=== PATIENT | female | born 1970 | race Caucasian/White ===

== ENCOUNTER 2021-10-18 10:00 | Outpatient (RCR) | payer OTHER, SELFPAY ==
--- NOTE | 2021-10-17 12:37 | PC.NURSE ---
10/17/2021 Pt. began PHP today 10/17/2021,Pt. disclosed that she has been drinking alcohol everyday for the past 10 years.This radio script writer met with the team to discuss concerns regarding Pt's substance abuse and meeting level of care for PHP at this time. The team determined that Pt. does not meet level of care for PHP at this time, Pt's Psychiatrist was also consulted. This radio script writer contacted Pt. and discussed this with her,Pt.was receptive, this radio script writer informed Pt. that once she completes a recovery program,she can be referred to PHP. This radio script writer provided the names and phone numbers to Inpatient Recovery facilities.
--- NOTE | 2021-10-17 16:19 | PC.NURSE ---
I called and left a message for pt's therpaist, Harmony Gomez at [facility] in [place] ([phone]) informing her of pt's referral to detox.
--- NOTE | 2021-10-17 16:56 | PM.EVENT ---
Event Note Date of Service: 10/17/21 Event Note: This conventional mortgage underwriter contacted outpatient psychiatrist regarding Wellbutrin and client alcohol use. Provider stated that they are aware, and have been working with client. Client had reported no previous seizure activity.
== END 2021-10-21 07:22 | disposition home or self-care (01) ==
LOC: HO.PHPA 10:00
PROVIDERS: Visit Provider Psychiatry & Neurology Psychiatry
DX: F33.1 Major depressive disorder, recurrent, moderate (principal); F41.1 Generalized anxiety disorder
CPT/HCPCS: 90791; 90853

== ENCOUNTER 2022-01-24 09:00 | Outpatient (RCR) | payer OTHER, SELFPAY ==
[2021-12-10 13:17] VITALS: BMI 31.6
--- NOTE | 2021-12-10 13:50 | PC.ADMIT ---
Patient is a 50 year old female who started [facility] today d/t increased depression with passive SI, no plan or intent, and increased anxiety sxs. Patient initially came to [facility] in September however she was referred to treatment for ETOH detox as patient reported drinking ETOH daily for the past 10 years. Patient reports being admitted to [facility] and was discharged on 10/31/21. Patient reports she has not had a drink since discharge. Patient reports increased stress at work and is currently on a MARIO from work for the past 2 months. Patient struggling with continuing at her current place of employment and stated she has been out of work for the past 2 months. Patient feeling helpless and hopeless, has been isolating, and experiencing crying episodes as she does not know what to do. Patient is having difficulty functioning and making decisions. She reports low self esteem and does not know what she can do about her current situation. Patient also reports ruminating about her job worried about what others are thinking about her which is creating much anxiety and worry. She is ambivalent about telling her work that she does not want to come back. Patient does not think she is qualified to do other types of work. Patient is alert and oriented x4. Presents with depressed mood anxious affect tearful at times. Denied SI at present however was experiencing passive suicidal thoughts during the initial assessment. Patient gave verbal permission to email her a copy of her safety plan. Medications reconciled with patient and patient's pharmacy. Patient reports taking medications as prescribed. Patient reported that she has 15 sessions left of TMS and is attending sessions daily after groups at 3pm. Patient wanted me to call [facility] to make sure she can do the PHP and TMS at the same time as she did not want to get billed. I called [facility] and spoke to Monae and let her know of patient's concerns of receiving a bill for attending both treatments on the same day but different times and Monae stated it was no problem for patient to do both on the same days. Reference # [id number]. I reviewed the information with the patient as well.
--- NOTE | 2021-12-10 15:51 | HO.PS.ADMBH ---
HPI Date of Service: 12/10/21 Chief Complaint: Major Depressive Disorder, Anxiety HPI Narrative: Christie is a 50 y.o. cis female who carries a dx of Alcohol Use Disorder, MDD recurrent, and r/o BPD. She is a self referral for PHP and had initially presented for intake in 09/2021, however due to daily drinking, she was referred to IOP at the [facility] and was discharged on 11/01/2021. She re-presented for PHP on 12/09/2021 and is currently receiving TMS through her psychiatrist?s office, in her 5th week. I evaluated the pt this morning and upon interview she reports feeling ?tortured with anxiety.? She attributes this to her work environment (currently on leave), as she says there is a ?high tense vibe? at work and she feels people are talking about her behind her back about her not doing things right, does not feel her boss is approachable. Says she cant imagine going back, leave is up on 12/24/21. Pt has been working with her psychiatrist on med adjustments and is receiving TMS, however says she has ?never had a great response? to interventions and she doesnt feel like anything is working. Has hx of ECT. Reports when she does not have structure in her day from PHP/ TMS, she isolates at home and watches tv, as she feels ?scared to leave the house.? She will go to the grocery store but sx of agoraphobia are relatively new. Has not been attending AA as much recently due to not liking remote groups and says she hasnt ?immersed myself in recovery.? Pt is struggling with sleep despite taking seroquel, gets ?a couple hours? of sleep, wakes up at 3am and cannot fall back to sleep. Daytime energy is low. Says she is ?constantly ruminating over my work situation.? Has financial stress, is in debt. She has been showering and keeping up with hygiene. Has also applied for other jobs. States her last episode of depression was in 2013, which was precipitated by her mother passing away. Pt states she feels lonely, as she used to go to the bar once a week but no longer goes due to sobriety. Has urges to drink and has tried non-alcoholic beer. Sx of depression include avolition, hopelessness, and low self esteem, as she says she feels like ?such a fucking failure.? Pt denies SI/SIB/HI and says she feels safe. Denies issues with anger. Denies issues with concentration. No hx of psychotic sx. No hx of manic or hypomanic episodes endorsed.? Current medications: Wellbutrin XL 300mg QD, Zoloft 100mg QD, and Seroquel 300mg QHS and 25 mg QD PRN for anxiety (denies benefit for 25 mg helping with anxiety). Past Psychiatric History: Past meds: Clonidine, hydroxyzine (lack of benefit), lamictal, lithium, abilify, lexapro, geodon, celexa, effexor, prozac. -Pt?s psychiatrist is Dr. Edna Navarro. Has psychotherapy with Phylicia Spicer (tele therapy out of [place]). -Per chart, pt?s sx of depression started in college. Hx of IPLOC 2x, first time in her 20s, last in 2013 at [facility]. She has hx of ECT during her inpatient admission and was stepped down to PHP at [facility] in 2013. Medical Evaluation Reviewed: Yes -Pt has stitches from biopsy on R side of eye due to basal cell carcinoma. [facility] Medical History (Updated 12/18/21 @ 16:32 by Martina Hernandez) Basal cell carcinoma H/O hidradenitis suppurativa History of fracture of left ankle Family History: -Oldest sister suffered from Schizophrenia and overdosed 10 yrs ago. Father and maternal uncle were alcoholics (both ). Social History: -Lives alone in a condo she owns. Close with her sister (lives in [place] 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 -She attended [id number] and transferred to [employer], where she graduated. Substance History: -Nicotine: 1/2 ppd -Cannabis: onset in College, occasional use -Alcohol: onset College, 3-5 beers Daily, pt has been abstinent from alcohol since 10/17/2021, attending AA. Diagnostics Vital Signs (24Hr): BMI result Body Mass Index 31.6 Meds/Allergies Allergies Allergies Allergy/AdvReac Type Severity Reaction Status Date / Time No Known Allergies Allergy Mild NOT Verified 12/10/21 13:07 APPLICABLE Mental Status Exam Mental Status Exam Narrative: A&O. Telehealth. Well groomed, overweight. Good eye contact, attentive. No Tics or Tremors. No abnormal involuntary movements. Has psychomotor agitation, pacing. Pt is distressed, anxious, tearful but overall cooperative, engaged. Non-pressured speech, spontaneous with regular rate and rhythm, normal volume and prosody. No prolonged speech latency or dysarthria. Mood is ?anxious,? affect is anxious. Denies SI/SIB/HI upon inquiry. Denies A/VH or delusional thought content. Thoughts are coherent, organized. No known cognitive or memory impairment. Insight/ Judgment fair and adequate. Assessment & Plan Assessment & Plan (1) Alcohol use disorder, moderate, in early remission: Status: Acute Code(s): F10.21 - Alcohol dependence, in remission (2) MDD (major depressive disorder), recurrent severe, without psychosis: Status: Acute Code(s): F33.2 - Major depressive disorder, recurrent severe without psychotic features (3) HUMBERTO (generalized anxiety disorder): Status: Acute Code(s): F41.1 - Generalized anxiety disorder Assessment and Plan: Christie is a 50 y.o. cis female who carries a dx of Alcohol Use Disorder, MDD recurrent, and r/o BPD. She is a self referral for PHP and had initially presented for intake in 09/2021, however due to daily drinking, she was referred to IOP at the [facility] and was discharged on 11/01/2021. She re-presented for PHP on 12/09/2021 and is currently receiving TMS through her psychiatrist?s office, in her 5th week. She currently is presenting with sx of anxiety, isolative behaviors, poor sleep, low energy, poor self esteem, hopelessness, avolition and anhedonia, and feelings of hopelessness. Pt has hx of ECT and multiple failed med trials. Has OP psych services and psychiatrist is Dr. Durga Navarro. Plan: Pt reports she does not want med adjustments, as she feels frustrated with lack of benefit on medications and does not feel TMS has been helpful thus far. She attributes sx of depression and anxiety to situational stress of not liking her job, financial stress. She is open to re-trialing hydroxyzine as a comfort medication to use on a PRN basis for anxiety, agitation, and distress. Reviewed risks and benefits.?Would benefit from re-engaging in AA. Patient educated on: medication risk/benefits and therapeutic strategies Certification I certify that partial hospital treatment is medically necessary due to the symptoms and problems resulting from the patient's mental illness and the failure to treat the patient at the partial hospital level of care would likely result in the patient requiring inpatient psychiatric care which could not be prevented at a less intensive level of care.
--- NOTE | 2021-12-12 15:10 | PC.NURSE ---
Case opened in Treatment Team.
--- NOTE | 2021-12-18 16:12 | HO.PHPPROGNO ---
Subjective Subjective Date of Service: 12/18/21 Reason For Visit: Major Depressive Disorder, Anxiety Guardianship: No Medical Problems Affecting Mental Status: No Interim History: Client reports, ?I am not good, it's situational ?. Reports feeling that she has had no relief from anxiety and depressive symptoms while in program. Continues to peseverate on her work concerns. No thoughts of harm to self or others, no safety concern at this time. Medication Compliance: Yes Side effects from medications: No Attending Groups: Yes Review of Systems Acute medical concerns: No Medical Review of Systems: unchanged Review of Systems Review of Systems Yes all other systems are reviewed and are negative Constitutional: Reports no additional constitutional complaints Psychiatric: Reports anxiety Mental Status Exam Mental Status Exam Narrative: Well-developed, well-nourished female, in NAD. Extremely Anxious mood and affect, crying during encounter. Catastrophizing, regarding her current work situation. No evidence of any type of alcohol withdrawals or cravings observed/reported. Patient Appearance: Fatigued and Appropriate Patient Orientation: Person, Place, Time and Situation Level of Consciousness: Awake, Appropriate and Alert Patient Behavior: Appropriate, Cooperative, Anxious, Good Eye Contact and Crying Mood Description: Depressed and Anxious Affect Description: Depressed and Anxious Patient Cognition Impaired: No Ability to Follow Directions: Excellent Speech Pattern: Clear, Appropriate and Coherent Memory Description: Intact Hallucinations: None Delusions: Not Present Thought Process: Intact Thought Content: positive for Perseveration (Focused solely on current employment situation.) Depressive Symptoms: Increased Anxiety, Diff. Making Decisions, Difficulty Sleeping, Crying Spells, Loss of Int. in Activity, Hopelessness, Feelings of Guilt, Unhappiness, Increased Fatigue, Low Self Esteem, Loss of Energy and Difficulty Concentrating Judgement: Fair Diagnostics Vital Signs (24Hr): BMI result Body Mass Index 31.6 Assessment & Plan Assessment & Plan (1) HUMBERTO (generalized anxiety disorder): Status: Acute Code(s): F41.1 - Generalized anxiety disorder Assessment and Plan: Client continues with extremely anxious mood and affect. Perseverates on current job situation. Reports she feels TMS is not helping at all with her depression and anxiety. Denies any thought of harm to self or others at this time. Reports that she feels her situation is causing her symptoms, and that medication changes would not help at this time. She was tearful during encounter, and states that she does not believe she is capable of returning to her job. She is concerned regarding FMLA leave, and giving notice. She stated that she know she has catastrophizing, but cannot stop. She has had ECT in the past which has been successful. This was discussed, she states she does not feel ready to do this. She was encouraged to contact [facility] for a crisis eval if she feels her symptoms are becoming unbearable. She was in agreement to this. (2) MDD (major depressive disorder), recurrent severe, without psychosis: Status: Acute Code(s): F33.2 - Major depressive disorder, recurrent severe without psychotic features (3) Alcohol use disorder, moderate, in early remission: Status: Acute Code(s): F10.21 - Alcohol dependence, in remission Assessment and Plan: Client reports she does not fully believe she may have an alcohol use disorder, but that she completed treatment prior to coming here, due to wanting to come to this program, and it had been recommended. She states that she is not currently attending alcoholics anonymous or any other type of 12-step support group. It was explained that symptoms of anxiety and depression as well as panic are often common during early sobriety, and that she may benefit from attending either in person or virtual 12 step support meetings. It was suggested that she find a small Women's group, as there may be people that have had the same lived experience. She stated that she would think about it. Assessment and Plan: 1. Continue with current [facility] plan of care. 2. Continue with outpatient TMS. Client reports she has less than 10 visits left. 3. Consider crisis eval for inpatient level of care. 4. ECT recommended as possibility, as it has been successful in past for similar symptoms. 5. Continue to offer support and encourage recovery programs regarding alcohol use. 6. Follow-up as per protocol, sooner if needed. Patient educated on: diagnosis, medication risk/benefits, substance abuse, ECT and therapeutic strategies Informed Consent: understands Reason for contiued partial hosp. stay Substantial Risk for: harm to self, inability to function, rapid decompensation and med/psych decompensation Certification I certify that partial hospital treatment is medically necessary due to the symptoms and problems resulting from the patient's mental illness and the failure to treat the patient at the partial hospital level of care would likely result in the patient requiring inpatient psychiatric care which could not be prevented at a less intensive level of care. I spent minutes with the patient and/or on the patient floor today, greater than?50% of which was spent counseling/coordinating care. Discharge Plan Discharge Attending provider: Chester Caldera Medications: New hydroxyzine HCl 50 mg tablet 50 mg PO BID PRN (Reason: anxiety) Qty: 30 RF: 0 No Action sertraline [Zoloft] 100 mg Tablet 100 mg PO DAILY RF: 0 quetiapine [Seroquel] 100 mg Tablet 100 - 300 mg PO BEDTIME RF: 0 bupropion HCl [Wellbutrin XL] 150 mg Tablet Extended Release 24 Hr 300 mg PO QAM RF: 0 Telehealth Telehealth Location of provider rendering services: practice address Location of patient: address on file Patient Identification confirmed using: Name, : Yes Telehealth method: video Patient verbally consented to treatment: Yes Patient verbally consented to billing insurance company: Yes Patient informed of any privacy concerns related to visit: Yes Time spent with patient (mins): 20
--- NOTE | 2021-12-23 09:40 | PC.NURSE ---
I called the client to enquire about her absence .she stated that she called and left a message. She is not feeing well.
--- NOTE | 2021-12-24 11:58 | PC.NURSE ---
Spoke to patient about medication assisted treatment for ETOH cravings and to help support sobriety. Patient thinking about this however started she does not have cravings at this time and is staying sober however she may need it in the future. Patient given the number for the [facility].
--- NOTE | 2021-12-25 15:34 | P.PNPSP_ITS ---
Subjective Subjective Date of Service: 12/25/21 Reason For Visit: Major Depressive Disorder, Anxiety Guardianship: No Medical Problems Affecting Mental Status: No Interim History: Christie describes mood as ?you know, okay . Further elaborates by stating she is still very depressed. Reports that she feels her depression has worsened. States that she has had several passive fleeting thoughts of SI, with no intent or plan. Reports she feels safe. Reports she is almost done with TMS, and is not finding it helpful. Remains abstinent from alcohol. No 12-step groups in several weeks. Denies cravings. Medication Compliance: Yes Side effects from medications: No Attending Groups: Yes Review of Systems Acute medical concerns: No Medical Review of Systems: unchanged Review of Systems Review of Systems Yes all other systems are reviewed and are negative Constitutional: Reports no additional constitutional complaints Mental Status Exam Mental Status Exam Narrative: Well-developed, well-nourished female, in NAD. Anxious, Depressed mood and affect. No abnormal movements, no tics or tremors noted. Catastrophizing. Patient Appearance: Well Grooomed and Appropriate Patient Orientation: Person, Place, Time and Situation Level of Consciousness: Awake, Appropriate and Alert Patient Behavior: Appropriate, Cooperative and Good Eye Contact Mood Description: Depressed and Anxious Affect Description: Depressed and Anxious Patient Cognition Impaired: No Ability to Follow Directions: Excellent Speech Pattern: Clear, Appropriate and Coherent Memory Description: Intact Hallucinations: None Delusions: Not Present Thought Process: Intact Thought Content: positive for Obsessional Thoughts, positive for Perseveration and positive for Suicidal Ideation (Reports several fleeting passive SI, states minimal, denies any intent or plan.) Depressive Symptoms: Increased Anxiety, Diff. Making Decisions, Difficulty Sleeping, Crying Spells, Loss of Int. in Activity, Feelings of Worthlessness, Hopelessness, Feelings of Guilt, Unhappiness, Increased Fatigue, Thoughts of /Suicide (several passive, fleeting since last visit. denies today), Low Self Esteem, Loss of Energy and Difficulty Concentrating Judgement: Fair Diagnostics Vital Signs (24Hr): BMI result Verdana 4 Body Mass Index Verdana 4 31.6 Verdana 4 Verdana 4 Assessment & Plan Assessment & Plan (1) MDD (major depressive disorder), recurrent severe, without psychosis: Status: Acute Code(s): F33.2 - Major depressive disorder, recurrent severe without psychotic features Assessment and Plan: Patient reports symptoms of depression are worsening. Presents as hopeless, helpless. Reports several fleeting thoughts of passive SI since last encounte, no plan/intent. Denies any thoughts of self-harm today. States that she is in last week of TMS therapy, and that she has found it to be unhelpful. She reports she is not finding her medications helpful at all at this time either. She reports that she has been talking about ketamine treatment as an option with her outpatient provider. She also reports that she has had ECT in the past with positive affect, and has been considering this. She reports that she received it at this facility in 2013, and then 10 years prior to that date. She is concerned regarding transportation for treatment. She is also perseverating on her work situation, and that she may lose insurance when and if she leaves her job. (2) HUMBERTO (generalized anxiety disorder): Status: Acute Code(s): F41.1 - Generalized anxiety disorder (3) Alcohol use disorder, moderate, in early remission: Status: Acute Code(s): F10.21 - Alcohol dependence, in remission Assessment and Plan: Reports abstinent from alcohol. States has not attended any 12 step support or other type of support groups in past 2 weeks. Denies cravings of any alcohol. Discuss usefulness of support groups, patient was encouraged to attend meetings. Plan 1. Continue with current medications as prescribed by outpatient provider. 2. informed outpatient provider as well as psychiatrist here that she has been considering ECT treatments. 3 Continue with current [facility] plan of care. 4. Continue to support client's early sobriety and encourage her to attend support groups. 5. Follow-up as per protocol. Patient educated on: diagnosis, medication risk/benefits, substance abuse, ECT, TMS and therapeutic strategies Informed Consent: understands Reason for contiued partial hosp. stay Substantial Risk for: harm to self, inability to function, rapid decompensation and med/psych decompensation Certification I certify that partial hospital treatment is medically necessary due to the symptoms and problems resulting from the patient's mental illness and the failure to treat the patient at the partial hospital level of care would likely result in the patient requiring inpatient psychiatric care which could not be prevented at a less intensive level of care. I spent minutes with the patient and/or on the patient floor today, greater than?50% of which was spent counseling/coordinating care. Discharge Plan Discharge Attending provider: Chester Caldera Medications: New hydroxyzine HCl 50 mg tablet 50 mg PO BID PRN (Reason: anxiety) Qty: 30 0RF No Action sertraline [Zoloft] 100 mg Tablet 100 mg PO DAILY 0RF quetiapine [Seroquel] 100 mg Tablet 100 - 300 mg PO BEDTIME 0RF Rx Instructions: Take 1-3 tabs at bedtime. bupropion HCl [Wellbutrin XL] 150 mg Tablet Extended Release 24 Hr 300 mg PO QAM 0RF Rx Instructions: Take 2 tabs daily. Telehealth Telehealth Location of provider rendering services: practice address Location of patient: address on file Patient Identification confirmed using: Name, : Yes Telehealth method: video Patient verbally consented to treatment: Yes Patient verbally consented to billing insurance company: Yes Patient informed of any privacy concerns related to visit: Yes Time spent with patient (mins): 25
--- NOTE | 2022-01-02 15:00 | P.PNPSP_ITS ---
Subjective Subjective Date of Service: 01/02/22 Reason For Visit: Major Depressive Disorder, Anxiety Guardianship: No Medical Problems Affecting Mental Status: No Interim History: Reports that groups have helped calm me , but says underlying depression and anxiety still present. Denies any thoughts of harm to self or others, no safety concern. Expresses ambivalence regarding abstinence from alcohol and cannabis use. Considering esketamine treatment. Medication Compliance: Yes Side effects from medications: No Attending Groups: Yes Review of Systems Acute medical concerns: No Medical Review of Systems: unchanged Review of Systems Review of Systems Yes all other systems are reviewed and are negative Constitutional: Reports no additional constitutional complaints Mental Status Exam Mental Status Exam Narrative: Well-developed, well-nourished female, in NAD. Mood / affect continue depressed, less anxious. No tics/tremors. Patient Appearance: Well Grooomed and Appropriate Patient Orientation: Person, Place, Time and Situation Level of Consciousness: Awake, Appropriate and Alert Patient Behavior: Appropriate, Cooperative and Good Eye Contact Mood Description: Depressed and Anxious Affect Description: Depressed (appears somewhat improved) and Anxious (lessened but still present) Patient Cognition Impaired: No Ability to Follow Directions: Excellent Speech Pattern: Clear, Appropriate and Coherent Memory Description: Intact Hallucinations: None Delusions: Not Present Thought Process: Intact, Goal Oriented and Linear Thought Content: positive for Obsessional Thoughts, positive for Goal Oriented, positive for Linear and positive for Perseveration Depressive Symptoms: Increased Anxiety, Loss of Int. in Activity, Feelings of Worthlessness, Hopelessness, Feelings of Guilt (feelings of shame/guilt), Unhappiness, Low Self Esteem, Loss of Energy and Difficulty Concentrating Judgement: Fair Diagnostics Vital Signs (24Hr): BMI result Verd[place] 4 Body Mass Index Verdana 4 31.6 Verdana 4 Verdana 4 Assessment & Plan Assessment & Plan (1) Alcohol use disorder, moderate, in early remission: Status: Acute Code(s): F10.21 - Alcohol dependence, in remission Assessment and Plan: Client ambivalent regarding substance use cessation. Discussed 12 step groups, setting goals and finding other outlets for socialization. She is willing to continue developing other interests. (2) MDD (major depressive disorder), recurrent severe, without psychosis: Status: Acute Code(s): F33.2 - Major depressive disorder, recurrent severe without psychotic features Assessment and Plan: Continues with depressive symptoms, although does appear somewhat improved. No thoughts of harm to self or others, no safety concern at this time. Reports TMS is finishing, does not feel it has been helpful. Considering esket amine treatment. Discussed ECT as an option. Considering esketamine, ECT as treatment options. She reports that she would prefer to try esketamine first, and then if that does not help alleviate symptoms she will then consider ECT. (3) HUMBERTO (generalized anxiety disorder): Status: Acute Code(s): F41.1 - Generalized anxiety disorder Assessment and Plan: Reports feeling overall that groups have helped her to handle anxiety and healthier way. Does report though she continues with anxiety symptoms, although they have improved. Reports taking medications as prescribed. Would prefer to discuss any possible medication changes with her outpatient provider. Plan 1. Continue with current medications as prescribed by outpatient provider. 2. Continue with current [facility] plan of care. 3. Follow-up as per protocol. Patient educated on: diagnosis, medication risk/benefits, substance abuse, ECT and therapeutic strategies Informed Consent: understands Reason for contiued partial hosp. stay Substantial Risk for: inability to function and med/psych decompensation Certification I certify that partial hospital treatment is medically necessary due to the symptoms and problems resulting from the patient's mental illness and the failure to treat the patient at the partial hospital level of care would likely result in the patient requiring inpatient psychiatric care which could not be prevented at a less intensive level of care. I spent minutes with the patient and/or on the patient floor today, greater than?50% of which was spent counseling/coordinating care. Discharge Plan Discharge Attending provider: Chester Caldera Medications: New hydroxyzine HCl 50 mg tablet 50 mg PO BID PRN (Reason: anxiety) Qty: 30 0RF No Action sertraline [Zoloft] 100 mg Tablet 100 mg PO DAILY 0RF quetiapine [Seroquel] 100 mg Tablet 100 - 300 mg PO BEDTIME 0RF Rx Instructions: Take 1-3 tabs at bedtime. bupropion HCl [Wellbutrin XL] 150 mg Tablet Extended Release 24 Hr 300 mg PO QAM 0RF Rx Instructions: Take 2 tabs daily. Telehealth Telehealth Location of provider rendering services: practice address Location of patient: address on file Patient Identification confirmed using: Name, : Yes Telehealth method: video Patient verbally consented to treatment: Yes Patient verbally consented to billing insurance company: Yes Patient informed of any privacy concerns related to visit: Yes Time spent with patient (mins): 20
--- NOTE | 2022-01-10 11:16 | P.PNPSP_ITS ---
Subjective Subjective Date of Service: 01/10/22 Reason For Visit: Major Depressive Disorder, Anxiety Guardianship: No Medical Problems Affecting Mental Status: No Interim History: Filling reports mood as ?I am okay ?. She is anxious regarding starting this [place] as outpatient next week. No SI, no safety concern. Medication Compliance: Yes Side effects from medications: No Attending Groups: Yes Review of Systems Acute medical concerns: No Medical Review of Systems: unchanged Review of Systems Review of Systems Yes all other systems are reviewed and are negative Constitutional: Reports no additional constitutional complaints Mental Status Exam Mental Status Exam Narrative: Well-developed, well-nourished female, in NAD. Mood continues dysphoric although slightly improved, continues with anxiety. No tics/tremors. Patient Appearance: Well Grooomed and Appropriate Patient Orientation: Person, Place, Time and Situation Level of Consciousness: Awake, Appropriate and Alert Patient Behavior: Appropriate, Cooperative and Good Eye Contact Mood Description: Depressed and Anxious Affect Description: Depressed (continues to improve) and Anxious (continues to improve) Patient Cognition Impaired: No Ability to Follow Directions: Excellent Speech Pattern: Clear, Appropriate and Coherent Memory Description: Intact Hallucinations: None Delusions: Not Present Thought Process: Intact, Goal Oriented and Linear Thought Content: positive for Obsessional Thoughts, positive for Goal Oriented, positive for Linear and positive for Perseveration Depressive Symptoms: Increased Anxiety, Loss of Int. in Activity, Feelings of Worthlessness, Feelings of Guilt (feelings of shame/guilt, especially surrounding remaining on leave from work.), Unhappiness, Low Self Esteem and Loss of Energy Judgement: Fair Diagnostics Vital Signs (24Hr): BMI result Body Mass Index 31.6 Assessment & Plan Assessment & Plan (1) MDD (major depressive disorder), recurrent severe, without psychosis: Status: Acute Code(s): F33.2 - Major depressive disorder, recurrent severe without psychotic features Assessment and Plan: Continues with depressed, anxious mood and affect, although slowly improved. Concerned regarding upcoming ketamine treatments starting next week. Expressed anxiety regarding this. Overall feeling okay . Discussed benefits of ketamine verses ECT treatment. Education provided. (2) HUMBERTO (generalized anxiety disorder): Status: Acute Code(s): F41.1 - Generalized anxiety disorder (3) Alcohol use disorder, moderate, in early remission: Status: Acute Code(s): F10.21 - Alcohol dependence, in remission Assessment and Plan: Continues to remain abstinent from alcohol. Plans to attend online recovery meeting this evening. Plan 1. Continue with current [facility] plan of care. 2. Continue with current medication regimen as prescribed. 3. Follow-up as per protocol. Patient educated on: diagnosis, medication risk/benefits, substance abuse and therapeutic strategies Informed Consent: understands Reason for contiued partial hosp. stay Substantial Risk for: inability to function, med/psych decompensation and other (alcohol relapse) Certification I certify that partial hospital treatment is medically necessary due to the symptoms and problems resulting from the patient's mental illness and the kristin lure to treat the patient at the partial hospital level of care would likely result in the patient requiring inpatient psychiatric care which could not be prevented at a less intensive level of care. I spent minutes with the patient and/or on the patient floor today, greater than?50% of which was spent counseling/coordinating care. Discharge Plan Discharge Attending provider: Chester Caldera Medications: New hydroxyzine HCl 50 mg tablet 50 mg PO BID PRN (Reason: anxiety) Qty: 30 0RF No Action sertraline [Zoloft] 100 mg Tablet 100 mg PO DAILY 0RF quetiapine [Seroquel] 100 mg Tablet 100 - 300 mg PO BEDTIME 0RF Rx Instructions: Take 1-3 tabs at bedtime. bupropion HCl [Wellbutrin XL] 150 mg Tablet Extended Release 24 Hr 300 mg PO QAM 0RF Rx Instructions: Take 2 tabs daily. Telehealth Telehealth Location of provider rendering services: practice address Location of patient: address on file Patient Identification confirmed using: Name, : Yes Telehealth method: video Patient verbally consented to treatment: Yes Patient verbally consented to billing insurance company: Yes Patient informed of any privacy concerns related to visit: Yes Time spent with patient (mins): 15
--- NOTE | 2022-01-24 14:30 | PC.NURSE ---
I called and left message for patient to call me back x 2. Awaiting call back from patient to review patient discharged medications.
--- NOTE | 2022-01-24 15:38 | HO.PHPPROGNO ---
Subjective Subjective Date of Service: 01/24/22 Reason For Visit: Major Depressive Disorder, Anxiety Guardianship: No Medical Problems Affecting Mental Status: No Interim History: Christie reports she is feeling ?okay ?today. She states however that she is still anxious and depressed, although slowly improving. She is also concerned as this program has provided her daily structure. Reports tolerating ketamine well. Continues perseveration regarding employment, and medical leave. Maintaining abstinence from alcohol. Feels ready for discharge from [facility]. Medication Compliance: Yes Side effects from medications: No Attending Groups: Yes Review of Systems Acute medical concerns: No Medical Review of Systems: unchanged Review of Systems Review of Systems Yes all other systems are reviewed and are negative Constitutional: Reports no additional constitutional complaints Mental Status Exam Mental Status Exam Narrative: Well-developed, well-nourished female, in NAD. Mood continues dysphoric although continues to improve. Continues anxious, although improving. Patient Appearance: Well Grooomed and Appropriate Patient Orientation: Person, Place, Time and Situation Level of Consciousness: Awake, Appropriate and Alert Patient Behavior: Appropriate, Cooperative and Good Eye Contact Mood Description: Depressed (improving) and Anxious (improving) Affect Description: Appropriate, Depressed (continues to improve) and Anxious (continues to improve) Patient Cognition Impaired: No Ability to Follow Directions: Excellent Speech Pattern: Clear, Appropriate and Coherent Memory Description: Intact Hallucinations: None Delusions: Not Present Thought Process: Intact, Goal Oriented and Linear Thought Content: positive for Goal Oriented, positive for Linear and positive for Perseveration (regarding work situation) Depressive Symptoms: Increased Anxiety, Loss of Int. in Activity and Low Self Esteem Judgement: Good Diagnostics Vital Signs (24Hr): BMI result Body Mass Index 31.6 Assessment & Plan Assessment & Plan (1) Alcohol use disorder, moderate, in early remission: Status: Acute Code(s): F10.21 - Alcohol dependence, in remission Assessment and Plan: Continues to remain abstinent from alcohol. Not utilizing 12 step groups on a regular basis, although trying to. Denies any concerns regarding alcohol use at this time. (2) MDD (major depressive disorder), recurrent severe, without psychosis: Status: Acute Code(s): F33.2 - Major depressive disorder, recurrent severe without psychotic features Assessment and Plan: Reports a decrease in depressive symptoms, believes that esketamine is helping somewhat. States that she is feeling ?a little better, although not as quickly as I had hoped ?. Denies SI, denies any thought of harm to self or others, no safety concerns. (3) HUMBERTO (generalized anxiety disorder): Status: Acute Code(s): F41.1 - Generalized anxiety disorder Assessment and Plan: Reports symptoms of anxiety are still present but contine to improve. Plan 1. Client appears stable for discharge from [facility] at this time. 2. Client to follow-up with outpatient provider going forward. Patient educated on: diagnosis, medication risk/benefits, substance abuse and therapeutic strategies Informed Consent: understands Reason for contiued partial hosp. stay Substantial Risk for: stable for discharge Certification I certify that partial hospital treatment is medically necessary due to the symptoms and problems resulting from the patient's mental illness and the failure to treat the patient at the partial hospital level of care would likely result in the patient requiring inpatient psychiatric care which could not be prevented at a less intensive level of care. I spent ____30__ minutes with the patient and/or on the patient floor today, greater than?50% of which was spent counseling/coordinating care. Discharge Plan Discharge Attending provider: Chester Caldera Medications: New hydroxyzine HCl 50 mg tablet 50 mg PO BID PRN (Reason: anxiety) Qty: 30 0RF No Action sertraline [Zoloft] 100 mg Tablet 100 mg PO DAILY 0RF quetiapine [Seroquel] 100 mg Tablet 100 - 300 mg PO BEDTIME 0RF Rx Instructions: Take 1-3 tabs at bedtime. bupropion HCl [Wellbutrin XL] 150 mg Tablet Extended Release 24 Hr 300 mg PO QAM 0RF Rx Instructions: Take 2 tabs daily. Stand Alone Forms: Patient Portal Discharge page Telehealth Telehealth Location of provider rendering services: practice address Location of patient: address on file Patient Identification confirmed using: Name, : Yes Telehealth method: video Patient verbally consented to treatment: Yes Patient verbally consented to billing insurance company: Yes Patient informed of any privacy concerns related to visit: Yes Time spent with patient (mins): 20
== END 2022-01-24 23:59 | disposition home or self-care (01) ==
LOC: HO.PHPA 09:00
PROVIDERS: Visit Provider Psychiatry & Neurology Psychiatry
DX: F33.2 Major depressive disorder, recurrent severe without psychotic features (principal); F41.1 Generalized anxiety disorder; F10.21 Alcohol dependence, in remission; Z79.899 Other long term (current) drug therapy
CPT/HCPCS: 90791; 90853

== ENCOUNTER 2022-02-18 15:36 | Inpatient (IN) | payer OTHER, MEDICAID, SELFPAY ==
--- NOTE | ~2022-02-18 | XR_ITS ---
EXAMINATION: XR CHEST CLINICAL INFORMATION: Leukocytosis COMPARISON: None TECHNIQUE: Frontal view of the chest was obtained. 10:11 PM FINDINGS: No significant abnormality is noted involving the heart, lungs, mediastinum, bony thorax or soft tissues. XR/XR chest 1V IMPRESSION: Unremarkable examination.
[2022-02-18 16:42] VITALS: BP 116/70; PULSE 100; RESP 18; TEMP 36.7; O2SAT 96; BMI 32.4
--- NOTE | 2022-02-18 18:05 | ED.PSYCH ---
HPI - Psych General Chief Complaint: Psychiatric Symptoms Stated Complaint: ref by doc SI Time Seen by Provider: 02/18/22 18:05 Source: patient Mode of arrival: ambulatory Limitations: no limitations History of Present Illness HPI Narrative: Patient history of depression had ECT in the past which worked on different medications for depression still feeling very depressed sent by Dr. Calixto patient's psychiatrist for inpatient admission for possible ECT treatment patient having increasing depression with difficulty in coping denies any suicidal ideation and homicidal feeling lying on the cot 4 hours not doing much at home tearful but does not know what causing the increased depression no hallucination no delusion Related Data Home Medications Medication Instructions Recorded Confirmed bupropion HCl 150 mg 24 hr tablet, 300 mg PO QAM 02/18/22 02/18/22 extended release quetiapine 100 mg tablet 1 - 3 tab PO BEDTIME PRN 02/18/22 02/18/22 sertraline 100 mg tablet 100 mg PO QAM 02/18/22 02/18/22 Allergies Allergy/AdvReac Type Severity Reaction Status Date / Time No Known Allergies Allergy Mild NOT Verified 12/10/21 13:07 APPLICABLE Review of Systems Review of Systems: Yes all other systems are reviewed and are negative [facility] Past Medical History Medical History Basal cell carcinoma H/O hidradenitis suppurativa History of fracture of left ankle Social History Social History Household Members: None Household Members Other:: N/A Patient Tobacco Use Status: Current everyday Tobacco user Tobacco use type: Cigarette Cigarettes Per Day: 10 Advance Directives: No Advance Directives Information Provided: No Guardian: No Physical Exam Vital Signs: Vital Signs: Last Vital Signs Temp 97.8 F 02/18/22 18:57 Pulse 100 02/18/22 18:57 Resp 16 02/18/22 18:57 BP 129/64 02/18/22 18:57 Pulse Ox 99 02/18/22 18:57 BMI result Body Mass Index 32.4 Appearance: Alert. Oriented X3. No acute distress. Eyes: PERRLA, No Nystagmus ENT: Pharynx normal. Oral Mucosa moist Neck: Normal inspection. Neck supple. CVS: Normal heart rate and rhythm. Pulses normal. Respiratory: No respiratory distress. Equal air entry bilateral, no wheezing/rales/rhonchi Abdomen: Soft and nontender. Bowel sounds are present, no mass palpable, no CVA tenderness Skin: Skin warm and dry. Normal skin color. Normal skin turgor. Extremities: No lower extremity edema. No calf tenderness Psych: Depressed mood no hallucination delusion fair judgment fair thought process Neuro: Oriented X 3. No motor deficit. No sensory deficit.No cerebellar signs , cranial nerves II-XII intact MDM - Psych MDM Narrative Medical decision making narrative: Patient with depression seen by therapist will admit for inpatient possible ECT treatment. Lab workup showed leukocytosis etiology not very clear chest x-ray negative no source of infection patient is not febrile possible leukemoid reaction. Patient has such medically cleared for inpatient psych admission Lab Data Attestation: I reviewed the patient's lab results. Result diagrams: 02/18/22 18:23 02/18/22 18:23 Labs: Lab Results 02/18/22 02/18/22 02/18/22 Range/Units 18:23 18:23 18:23 WBC 19.1 H (4.8-10.8) X10*3/uL RBC 4.54 (4.20-5.50) X10*6/uL Hgb 13.3 (12.0-16.0) g/dl Hct 43.8 (37.0-47.0) % MCV 96.5 (80.0-98.0) fL MCH 29.3 (27.0-33.0) pg MCHC 30.4 L (31.0-35.0) g/dl RDW 12.8 (11.0-16.0) % Plt Count 385 (160-400) X10*3/uL MPV 9.5 (9.4-12.3) fL Immature Gran % (Auto) 0.8 H (0.0-0.4) % Neut % (Auto) 71.9 (45-73) % Lymph % (Auto) 18.2 L (20-40) % Howard % (Auto) 6.2 (2-11) % Eos % (Auto) 2.4 (0-4) % Baso % (Auto) 0.5 (0-2) % Lymph # (Auto) 3.5 (1.2-4.9) X10*3/uL Howard # (Auto) 1.2 (0.1-1.2) X10*3/uL Eos # (Auto) 0.5 H (0.0-0.4) X10*3/uL Baso # (Auto) 0.1 (0.0-0.2) X10*3/uL Abs Immat Gran (auto) 0.16 H (0.00-0.03) X10*3/uL Absolute Neuts (auto) 13.8 H (2.0-8.3) x10*3/uL Absolute Nucleated RBC 0.000 (0.0-0.012) X10*3/uL Nucleated RBC % (auto) 0.0 (0.0-0.2) /100WBC Sodium 137 (135-145) mmol/L Potassium 4.4 (3.3-5.1) mmol/L Chloride 104 (96-108) mmol/L Carbon Dioxide 20 L (22-29) mmol/L Anion Gap 17 (12-20) BUN 10 (9-16) mg/dL Creatinine 0.85 (0.5-1.4) mg/dL Estim Creat Clear Calc 87.0 Estimated GFR > 60 Random Glucose 102 (60-115) mg/dL Calcium 10.2 (8.4-10.2) mg/dL Magnesium 2.2 (1.6-2.6) mg/dL Total Bilirubin 0.4 (0.0-1.0) mg/dL AST 24 (5-31) U/L ALT 34 H (0-31) U/L Alkaline Phosphatase 82 (39-117) U/L Total Protein 7.4 (6.5-8.0) g/dL Albumin 4.3 (3.5-5.0) g/dL Urine Color Urine Appearance Urine pH (5.0-8.0) Ur Specific [place] (1.005-1.025) Urine Protein (NEG-TRACE) MG/DL Urine Glucose (UA) (NEG) MG/DL Urine Ketones (NEG) MG/DL Urine Blood (NEG) Urine Nitrite (NEG) Ur Leukocyte Esterase (NEG) Urine RBC (0) /HPF Urine WBC (0-4) /HPF Ur Squamous Epith Cells /LPF Urine Bacteria /LPF Urine Opiates Screen (Not Detect) Urine Fentanyl Screen (Not Detect) Ur Barbiturates Screen (Not Detect) Ur Phencyclidine Scrn (Not Detect) Ur Amphetamines Screen (Not Detect) U Benzodiazepines Scrn (Not Detect) Urine Cocaine Screen (Not Detect) U Marijuana (THC) Screen (Not Detect) Ethyl Alcohol < 10 mg/dL COVID-19 (LILIANA) (Negative) COVID-19 Clin Com 02/18/22 02/18/22 02/18/22 Range/Units 18:56 20:04 20:04 WBC (4.8-10.8) X10*3/uL RBC (4.20-5.50) X10*6/uL Hgb (12.0-16.0) g/dl Hct (37.0-47.0) % MCV (80.0-98.0) fL MCH (27.0-33.0) pg MCHC (31.0-35.0) g/dl RDW (11.0-16.0) % Plt Count (160-400) X10*3/uL MPV (9.4-12.3) fL Immature Gran % (Auto) (0.0-0.4) % Neut % (Auto) (45-73) % Lymph % (Auto) (20-40) % Howard % (Auto) (2-11) % Eos % (Auto) (0-4) % Baso % (Auto) (0-2) % Lymph # (Auto) (1.2-4.9) X10*3/uL Howard # (Auto) (0.1-1.2) X10*3/uL Eos # (Auto) (0.0-0.4) X10*3/uL Baso # (Auto) (0.0-0.2) X10*3/uL Abs Immat Gran (auto) (0.00-0.03) X10*3/uL Absolute Neuts (auto) (2.0-8.3) x10*3/uL Absolute Nucleated RBC (0.0-0.012) X10*3/uL Nucleated RBC % (auto) (0.0-0.2) /100WBC Sodium (135-145) mmol/L Potassium (3.3-5.1) mmol/L Chloride (96-108) mmol/L Carbon Dioxide (22-29) mmol/L Anion Gap (12-20) BUN (9-16) mg/dL Creatinine (0.5-1.4) mg/dL Estim Creat Clear Calc Estimated GFR Random Glucose (60-115) mg/dL Calcium (8.4-10.2) mg/dL Magnesium (1.6-2.6) mg/dL Total Bilirubin (0.0-1.0) mg/dL AST (5-31) U/L ALT (0-31) U/L Alkaline Phosphatase (39-117) U/L Total Protein (6.5-8.0) g/dL Albumin (3.5-5.0) g/dL Urine Color YELLOW Urine Appearance CLEAR Urine pH 5.5 (5.0-8.0) Ur Specific [place] 1.020 (1.005-1.025) Urine Protein NEG (NEG-TRACE) MG/DL Urine Glucose (UA) NEG (NEG) MG/DL Urine Ketones NEG (NEG) MG/DL Urine Blood 2+ H (NEG) Urine Nitrite NEG (NEG) Ur Leukocyte Esterase NEG (NEG) Urine RBC 10-14 H (0) /HPF Urine WBC 0 (0-4) /HPF Ur Squamous Epith Cells 2+ /LPF Urine Bacteria 3+ /LPF Urine Opiates Screen Not Detected (Not Detect) Urine Fentanyl Screen Not Detected (Not Detect) Ur Barbiturates Screen Not Detected (Not Detect) Ur Phencyclidine Scrn Not Detected (Not Detect) Ur Amphetamines Screen Not Detected (Not Detect) U Benzodiazepines Scrn Not Detected (Not Detect) Urine Cocaine Screen Not Detected (Not Detect) U Marijuana (THC) Screen Not Detected (Not Detect) Ethyl Alcohol mg/dL COVID-19 (LILIANA) Negative (Negative) COVID-19 Clin Com See Note Discharge Plan Discharge Clinical Impression: MDD (major depressive disorder), recurrent severe, without psychosis, Leukocytosis Patient Disposition: Admitted As Inpatient
[2022-02-18 18:27] LABS: MANUAL DIFF FLAG NO
[2022-02-18 18:41] LABS: Basophils Absolute Auto 0.1 X10*3/uL (0.0-0.2); Basophils Percent Auto 0.5 % (0-2); Eosinophils Absolute Auto 0.5 X10*3/uL (0.0-0.4); Eosinophils Percent Auto 2.4 % (0-4); Hematocrit 43.8 % (37.0-47.0); Hemoglobin 13.3 g/dl (12.0-16.0); Imm Gran Abs Auto 0.16 X10*3/uL (0.00-0.03); Imm Gran Pct Auto 0.8 % (0.0-0.4); Lymphocytes Absolute Auto 3.5 X10*3/uL (1.2-4.9); Lymphocytes Percent Auto 18.2 % (20-40); Mean Corpuscular HGB Conc 30.4 g/dl (31.0-35.0); Mean Corpuscular Hemoglobin 29.3 pg (27.0-33.0); Mean Corpuscular Volume 96.5 fL (80.0-98.0); Mean Platelet Volume 9.5 fL (9.4-12.3); Monocytes Absolute Auto 1.2 X10*3/uL (0.1-1.2); Monocytes Percent Auto 6.2 % (2-11); Neutrophils Absolute Auto 13.8 x10*3/uL (2.0-8.3); Neutrophils Percent Auto 71.9 % (45-73); Platelet Count 385 X10*3/uL (160-400); Red Blood Count 4.54 X10*6/uL (4.20-5.50); Red Cell Distribution Width 12.8 % (11.0-16.0); White Blood Count 19.1 X10*3/uL (4.8-10.8)
[2022-02-18 18:43] LABS: Ethanol < 10 mg/dL
[2022-02-18 18:46] LABS: Alanine Aminotransferase 34 U/L (0-31); Albumin Level 4.3 g/dL (3.5-5.0); Alkaline Phosphatase 82 U/L (39-117); Anion Gap 17 (12-20); Aspartate Amino Transferase 24 U/L (5-31); Bilirubin Total 0.4 mg/dL (0.0-1.0); Blood Urea Nitrogen 10 mg/dL (9-16); Calcium 10.2 mg/dL (8.4-10.2); Carbon Dioxide 20 mmol/L (22-29); Chloride 104 mmol/L (96-108); Estimated Glomerular Filt Rate > 60; Glucose Random 102 mg/dL (60-115); Magnesium 2.2 mg/dL (1.6-2.6); Potassium 4.4 mmol/L (3.3-5.1); Sodium 137 mmol/L (135-145); Total Protein 7.4 g/dL (6.5-8.0)
[2022-02-18 18:57] VITALS: BP 129/64; PULSE 100; RESP 16; TEMP 36.6; O2SAT 99
[2022-02-18 19:20] LABS: COVID-19 Test Negative (Negative); IDNOW Serial# 16C4AD1C
[2022-02-18] MEDS: LORazepam 1 MG TABLET PO (19:44)
[2022-02-18 20:13] LABS: Appearance Urine CLEAR; Color Urine YELLOW; Glucose Urine UA NEG (NEG); Leukocyte Esterase Urine NEG (NEG); Nitrite Urine NEG (NEG); PH 5.5 (5.0-8.0); UACC Culture Trigger NO; Urine Blood 2+ (NEG); Urine Ketones NEG (NEG); Urine Protein NEG (NEG-TRACE)
[2022-02-18 20:24] LABS: Bacteria Urine 3+ /LPF; Squamous Epithelial Cell Urine 2+ /LPF; WBC Urine 0 /HPF (0-4)
[2022-02-18 20:26] LABS: Amphetamine Screen Urine Not Detected (Not Detect); Barbiturates, Urine Not Detected (Not Detect); Benzodiazepines Screen Urine Not Detected (Not Detect); Cannabinoid Screen Urine Not Detected (Not Detect); Cocaine Screen Urine Not Detected (Not Detect); Fentanyl, urine Not Detected (Not Detect); Opiate Screen Urine Not Detected (Not Detect); Phencyclidine Screen Urine Not Detected (Not Detect)
--- NOTE | 2022-02-18 21:06 | PC.NURSE ---
Triage note stated that pt awaiting bed in [facility]. This RN called M5 as well as M[facility] and [facility]. None of the inpatient psych units are expecting this pt at this time. This RN then spoke to CARE team regarding pts plan of care. CARE team stated somebody would be by to evaluate pt to determine if she met criteria for inpatient psych admission and develop plan of care from there. Pt notified of plan and ok with this, has no questions or concerns at this time. Pt to be moved to Pod at this time.
--- NOTE | 2022-02-18 22:42 | HE.PHANOTE ---
RE Bupropion Per patient, they take 300mg once a day. Verified with Anatoliy. Claim history shows TDD 450mg, but patient is only taking 300mg Thanks Keenan
[2022-02-18] MEDS: QUEtiapine Fumarate 100 MG TABLET PO (23:05)
--- NOTE | 2022-02-19 | ECG_ITS ---
Test Reason : medical clearance Blood Pressure : / mmHG Vent. Rate : 074 BPM Atrial Rate : 074 BPM P-R Int : 130 ms QRS Dur : 078 ms QT Int : 378 ms P-R-T Axes : 000 143 142 degrees QTc Int : 419 ms Suspect limb lead reversal, interpretation assumes no reversal Normal sinus rhythm Low voltage QRS Lateral infarct , age undetermined Abnormal ECG When compared with ECG of 17-MAY-2010 17:55, Nonspecific T wave abnormality now evident in Inferior leads T wave inversion now evident in Lateral leads Referred By: Josephine Gonzales Electronically Signed By:VICTOR MANUEL ELAM MD
[2022-02-19 01:50] VITALS: BP 99/56; PULSE 83; RESP 16; TEMP 37.1; O2SAT 98
[2022-02-19 02:09] LABS: Lactic Acid 0.9 mmol/L (0.5-2.0)
--- NOTE | 2022-02-19 06:49 | PC.NURSE ---
Patient slept through the night, no distress observed/reported, behavior appropriate, medication compliant, disposition per care team is voluntary inpatient bed search, will continue to monitor.
--- NOTE | 2022-02-19 07:13 | PC.NURSE ---
patient appears to remain asleep at present respirations are vene and unlabored patient appears in no distress
[2022-02-19] MEDS: buPROPion HCl XL 300 MG TAB.ER.24H PO (10:13)
[2022-02-19] MEDS: Sertraline HCL 100 MG TABLET PO (10:13)
[2022-02-19 16:31] VITALS: BP 127/65; PULSE 88; RESP 20; TEMP 36.2; O2SAT 97
[2022-02-19] MEDS: QUEtiapine Fumarate 100 MG TABLET PO (20:22)
--- NOTE | 2022-02-19 21:41 | PC.ADMIT ---
51 y.o. female admitted from [facility] for psychiatric evaluation. Per crisis: Her outpatient psychiatrist recommended evaluation for admission inpatient for possible ECT. Pt has been functioning below baseline for about 4 months and hardly leaving her home, unable to care for self, with poor sleep and appetite, and intermittent suicidal thoughts. PT has a history of inpatient admissions to . On admission Pt A&O and reports 8/10 depression due to her situation. Pt tearful during interview. Pt reports I want to be functional and get a job . Pt reports that she has been on a short term disability and reports that it will be running out in February. 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 Pt expressed her concerns regarding ECT and reports that she does not want to have memory loss . Pt denies si,hi,avh at this time. PMHx Basal Cell Carcinoma, Hidradenitis Suppurativa, and L ankle fracture. Pt on 15 minute safety checks.
--- NOTE | 2022-02-20 | ECG_ITS ---
Test Reason : ECT Blood Pressure : / mmHG Vent. Rate : 086 BPM Atrial Rate : 086 BPM P-R Int : 134 ms QRS Dur : 086 ms QT Int : 344 ms P-R-T Axes : 060 061 046 degrees QTc Int : 411 ms Normal sinus rhythm Normal ECG When compared with ECG of 19-FEB-2022 08:58, QRS axis Shifted left T wave inversion no longer evident in Lateral leads Referred By: Mojgan Mena Electronically Signed By:VICTOR MANUEL ELAM MD
[2022-02-20 06:00] VITALS: BP 121/64; PULSE 99; RESP 18; TEMP 36.7; O2SAT 99
[2022-02-20 07:00] VITALS: BMI 32.5
[2022-02-20] MEDS: Sertraline HCL 100 MG TABLET PO (08:44)
[2022-02-20] MEDS: buPROPion HCl XL 300 MG TAB.ER.24H PO (08:44)
[2022-02-20 09:00] LABS: Cholesterol 242 mg/dL; HDL Cholesterol 53 mg/dL; LDL Cholesterol Calculated 159 mg/dl; Magnesium 2.3 mg/dL (1.6-2.6); Triglycerides 151 mg/dL
[2022-02-20 09:18] LABS: Estimated Average Glucose 105 mg/dL; Hemoglobin A1c % 5.3 %
[2022-02-20 09:21] LABS: Thyroid Stimulating Hormone 2.34 uIU/mL (0.32-4.0)
[2022-02-20 09:43] LABS: Folate 14.2 ng/mL (> or = 4.0); Vitamin B12 415 pg/mL (200-900)
[2022-02-20] MEDS: Nicotine Polacrilex 2 MG GUM BUCCAL (11:55)
[2022-02-20 13:41] LABS: MANUAL DIFF FLAG NO
[2022-02-20 13:47] LABS: Basophils Absolute Auto 0.1 X10*3/uL (0.0-0.2); Basophils Percent Auto 0.6 % (0-2); Eosinophils Absolute Auto 0.6 X10*3/uL (0.0-0.4); Eosinophils Percent Auto 3.5 % (0-4); Hematocrit 40.3 % (37.0-47.0); Imm Gran Pct Auto 0.6 % (0.0-0.4); Lymphocytes Absolute Auto 2.7 X10*3/uL (1.2-4.9); Lymphocytes Percent Auto 17.2 % (20-40); Mean Corpuscular HGB Conc 32.3 g/dl (31.0-35.0); Mean Corpuscular Hemoglobin 28.8 pg (27.0-33.0); Mean Corpuscular Volume 89.4 fL (80.0-98.0); Mean Platelet Volume 8.8 fL (9.4-12.3); Monocytes Percent Auto 6.1 % (2-11); Neutrophils Absolute Auto 11.5 x10*3/uL (2.0-8.3); Platelet Count 375 X10*3/uL (160-400); Red Blood Count 4.51 X10*6/uL (4.20-5.50); Red Cell Distribution Width 12.6 % (11.0-16.0); White Blood Count 15.9 X10*3/uL (4.8-10.8)
--- NOTE | 2022-02-20 16:16 | P.CONHOSP_ITS ---
History of Present Illness Data of Consult Service Date: 02/20/22 Requesting physician: Martina Hernandez Primary Care Provider: Unknown Physician HPI Reason for consult: preop clearance for ECT 51-year-old female patient with past medical history of depression admitted to for ECT treatment since patient on multiple anti depressed since with no relief in symptoms with worsening depression difficulty in coping has been tear fall at home and laying in couch, patient at present remains tearful crying in between conversation, denies chest pain, no palpitation denies urinary symptoms of cough sinus pressure earache or sore throat, denies nausea vomiting abdominal pain or diarrhea, patient has no urinary symptoms of frequency, no dysuria, denies recent bout of fever chills. Patient denies any head trauma, denies recent surgeries. Review of Systems Review of Systems: General no headache , no dizziness no fever chills. CVS no chest pain, no palpitation. Respiratory no cough, no sputum production, no respiratory distress. Gastrointestinal no nausea no vomiting, no abdominal pain Yes all other systems are reviewed and are negative [facility] Medical History Basal cell carcinoma H/O hidradenitis suppurativa History of fracture of left ankle Social History Household Members: None Household Members Other:: N/A Housing: Condominium Do you presently have visiting nurse or other home services: No Unable to assess alcohol history related to: Unable to respond Patient Tobacco Use Status: Current everyday Tobacco user Tobacco use type: Cigarette Cigarette Packs Per Day: 0.25 Cigarettes Per Day: 5.0 Smoked in Last 30 Days: Yes e-Cigarette/Vaping Use: Currently Using Patient Interested in Nicotine Replacement: Yes Patient Given Instructions on How to Stop Smoking: No Use of substances other than those prescribed or required for medical reasons: Yes Substance Use Type: Marijuana and Caffiene Substance Use Frequency: Occasionally Last Used Substance Other:: July 2021 Currently Displaying Signs/Symptoms of Drug Intoxication Withdrawal: No Any prior treatment program specific to substance use: Yes ([facility]) Have you been hit, kicked, punched, or otherwise hurt by someone within the past year? If so, by whom?: No Do you feel safe in your current relationship?: No Is there a partner from a previous relationship who is making you feel unsafe now?: No Are you made to feel afraid or neglected: No Advance Directives: No Advance Directives Information Provided: No Guardian: No Do you have thoughts of harming others: None Do you have a plan to hurt others: No Plan Recently lost weight without trying: No Nutrition Risks: No Nutritional Risk Patient : No : No Poor oral hygiene: No service: No Sexual orientation: Straight/Heterosexual Meds Allergies Allergy/AdvReac Type Severity Reaction Status Date / Time No Known Allergies Allergy Mild NOT Verified 12/10/21 13:07 APPLICABLE Active Medications: Current Medications Acetaminophen (Acetaminophen 325 Mg Tablet) 650 mg PO Q6H PRN PRN Reason: Headache/Pain Mild Scale (1-3) Al Hydroxide/Mg Hydroxide (Magnesium Hydrox/Alum Hydrox 30 Ml Oral.Susp) 30 ml PO Q6H PRN PRN Reason: Heartburn/Nausea Bupropion HCl (Bupropion Hcl Xl 300 Mg Tab.Er.24h) 300 mg PO DAILY [facility] Last Admin: 02/20/22 08:44 Dose: 300 mg Documented by: Hydroxyzine HCl (Hydroxyzine Hcl 25 Mg Tablet) 25 mg PO BEDTIME PRN PRN Reason: Anxiety Magnesium Hydroxide (Milk Of Magnesia 30 Ml Oral.Susp) 30 ml PO DAILY PRN PRN Reason: Constipation Nicotine Polacrilex (Nicotine Polacrilex 2 Mg Gum) 2 mg BUCCAL Q2H PRN PRN Reason: Nicotine Cravings Last Admin: 02/20/22 11:55 Dose: 2 mg Documented by: Quetiapine Fumarate (Quetiapine Fumarate 100 Mg Tablet) 100 - 300 mg PO BEDTIME PRN PRN Reason: insomnia Last Admin: 02/19/22 20:22 Dose: 200 mg Documented by: Sertraline HCl (Sertraline Hcl 100 Mg Tablet) 100 mg PO DAILY [facility] Last Admin: 02/20/22 08:44 Dose: 100 mg Documented by: Trazodone HCl (Trazodone Hcl 50 Mg Tablet) 50 mg PO BEDTIME PRN PRN Reason: Insomnia Home Medications Medication Instructions Recorded Confirmed Last Taken Type bupropion HCl 150 mg 24 hr tablet, 300 mg PO QAM 02/18/22 02/18/22 Unknown History extended release quetiapine 100 mg tablet 1 - 3 tab PO BEDTIME PRN 02/18/22 02/18/22 Unknown History sertraline 100 mg tablet 100 mg PO QAM 02/18/22 02/18/22 Unknown History Physical Exam Vital Signs and Narrative: Vital Signs: Last Vital Signs Temp 98.1 F 02/20/22 06:00 Pulse 99 02/20/22 06:00 Resp 18 02/20/22 06:00 BP 121/64 02/20/22 06:00 Pulse Ox 99 02/20/22 06:00 BMI result Body Mass Index 32.5 Const: Other: General awake alert, tearful,in no acute distress. HEENT pupils equal round reactive to light and accommodation Neck supple no JVD. CVS regular rate rhythm, Respiratory lungs clear to auscultation, no respiratory distress, no wheeze, no rhonchi. Gastrointestinal abdomen soft, nontender, bowel sounds audible, no guarding , no rigidity. Extremities no edema. Neuro nonfocal Skin no rash, dry scab anterior abdominal wall no redness, no tenderness. Musculoskeletal no deformity Results Labs CBC and Chem 7: 02/20/22 13:34 02/18/22 18:23 Labs: Laboratory Results - last 24 hr 02/20/22 02/20/22 02/20/22 08:01 08:01 08:01 MCV MCH MCHC RDW Plt Count MPV Immature Gran % (Auto) Neut % (Auto) Lymph % (Auto) [place] % (Auto) Eos % (Auto) Baso % (Auto) Lymph # (Auto) [place] # (Auto) Eos # (Auto) Baso # (Auto) Abs Immat Gran (auto) Absolute Neuts (auto) Absolute Nucleated RBC Nucleated RBC % (auto) Estimat Average Glucose 105 Hemoglobin A1c % 5.3 Magnesium 2.3 Triglycerides 151 Cholesterol 242 LDL Cholesterol, Calc 159 HDL Cholesterol 53 Vitamin B12 415 Folate 14.2 TSH 2.34 Free T4 0.90 02/20/22 13:34 MCV 89.4 D MCH 28.8 MCHC 32.3 RDW 12.6 Plt Count 375 MPV 8.8 L Immature Gran % (Auto) 0.6 H Neut % (Auto) 72.0 Lymph % (Auto) 17.2 L [place] % (Auto) 6.1 Eos % (Auto) 3.5 Baso % (Auto) 0.6 Lymph # (Auto) 2.7 [place] # (Auto) 1.0 Eos # (Auto) 0.6 H Baso # (Auto) 0.1 Abs Immat Gran (auto) 0.10 H Absolute Neuts (auto) 11.5 H Absolute Nucleated RBC 0.000 Nucleated RBC % (auto) 0.0 Estimat Average Glucose Hemoglobin A1c % Magnesium Triglycerides Cholesterol LDL Cholesterol, Calc HDL Cholesterol Vitamin B12 Folate TSH Free T4 Assessment and Plan (1) Leukocytosis: Status: Acute (2) MDD (major depressive disorder), recurrent severe, without psychosis: Status: Acute (3) Pre-op evaluation: Status: Acute Plan 51-year-old female admitted for worsening depression failed antidepressant is admitted for ECT. Preop for ECT clearance patient noted to have leukocytosis, repeat CBC showed WBC trending down, no evidence of acute infection, with normal chest x-ray, urinalysis and normal skin examination, leukocytosis likely reactive, also noted to have abnormal EKG with T-wave inversion in lateral leads, patient has no chest pain, no palpitations therefore repeat EKG was obtained that is unremarkable, rest of electrolytes renal function is within normal range, patient can undergo ECT without further testing .
--- NOTE | 2022-02-20 17:44 | HO.PSYADMNOT ---
Documented by User: Linda Ayala APRN 02/20/22 18:09 HPI Date of Service: 02/20/22 Chief Complaint: ref by doc SI Sources of Information: patient interviewed, chart reviewed and crisis/core team assessment reviewed HPI Subjective Notes: Moy Warning and Conditional Voluntary Healthcare Proxy: No Guardianship: No Medical Problems Affecting Mental Status: No Narrative: 51 yo female, long history of recurrent major depression with treatment resistance-several trials, hx of TMS, hx of ECT with efficacy, presents for consideration for ECT course. Met with pt who is tearful- I have tried everything else . I don't want to be here. Pt reports current episode of illness has been problematic for ~6 months. 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 Symptoms became severe mid September when she lost functioning and began using alcohol to assist with sleep. Reports she requested partial hospital but was rejected due to her alcohol use. She was treated at [facility] in Sep 2021. Since that time she had a beer on 11/22/21 and two Guinness beers 02/13/22. Reports she has been taking Wellbutrin, Sertraline, Seroquel without SE. Reports sleep is disrupted without Seroquel and appetite is OK. Denies SI. Cries throughout eval. Medically, she injured her R foot in 2019 jumping over train tracks on a hike and although her foot was not fractured she expereinces significant pain to this day. Past Psychiatric History: Past meds: Clonidine, hydroxyzine (lack of benefit), lamictal, lithium, abilify, lexapro, geodon, celexa, effexor, prozac. -Pt?s psychiatrist is Dr. Edna Navarro. Has psychotherapy with Phylicia Spicer (tele therapy out of [place]). -Per chart, pt?s sx of depression started in college. Hx of IPLOC 2x, first time in her 20s, last in 2013 at [facility]. She has hx of ECT during her inpatient admission and was stepped down to [facility] at [facility] in 2013. Medical Evaluation Reviewed: Yes [facility] Medical History Basal cell carcinoma H/O hidradenitis suppurativa History of fracture of left ankle Family History: -Oldest sister suffered from Schizophrenia and overdosed 10 yrs ago. Father and maternal uncle were alcoholics (both ). Social History: -Lives alone in a condo she owns. Close with her sister (lives in [place] 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 -She attended [employer] and transferred to [employer], where she graduated. Substance History: Alcohol. Treated at [facility] Sep 2021. Drank 11/22/21 and 02/13/22 Denies other use Trauma History: affirms Diagnostics Vital Signs (24Hr): Vital Signs - 24 hr 02/20/22 06:00 Temperature 98.1 F Pulse Rate 99 Respiratory Rate 18 Blood Pressure 121/64 Pulse Oximetry 99 BMI result Body Mass Index 32.5 Labs Results: 02/20/22 13:34 02/18/22 18:23 Labs: Laboratory Results - last 48 hr 02/18/22 02/18/22 02/18/22 18:23 18:23 18:23 WBC 19.1 H RBC 4.54 Hgb 13.3 Hct 43.8 MCV 96.5 MCH 29.3 MCHC 30.4 L RDW 12.8 Plt Count 385 MPV 9.5 Immature Gran % (Auto) 0.8 H Neut % (Auto) 71.9 Lymph % (Auto) 18.2 L [place] % (Auto) 6.2 Eos % (Auto) 2.4 Baso % (Auto) 0.5 Lymph # (Auto) 3.5 [place] # (Auto) 1.2 Eos # (Auto) 0.5 H Baso # (Auto) 0.1 Abs Immat Gran (auto) 0.16 H Absolute Neuts (auto) 13.8 H Absolute Nucleated RBC 0.000 Nucleated RBC % (auto) 0.0 Sodium 137 Potassium 4.4 Chloride 104 Carbon Dioxide 20 L Anion Gap 17 BUN 10 Creatinine 0.85 Estim Creat Clear Calc 87.0 Estimated GFR > 60 Random Glucose 102 Estimat Average Glucose Hemoglobin A1c % Lactic Acid Calcium 10.2 Magnesium 2.2 Total Bilirubin 0.4 AST 24 ALT 34 H Alkaline Phosphatase 82 Total Protein 7.4 Albumin 4.3 Triglycerides Cholesterol LDL Cholesterol, Calc HDL Cholesterol Vitamin B12 Folate TSH Free T4 Urine Color Urine Appearance Urine pH Ur Specific [place] Urine Protein Urine Glucose (UA) Urine Ketones Urine Blood Urine Nitrite Ur Leukocyte Esterase Urine RBC Urine WBC Ur Squamous Epith Cells Urine Bacteria Urine Opiates Screen Urine Fentanyl Screen Ur Barbiturates Screen Ur Phencyclidine Scrn Ur Amphetamines Screen U Benzodiazepines Scrn Urine Cocaine Screen U Marijuana (THC) Screen Ethyl Alcohol < 10 COVID-19 ([facility]) COVID-19 GLOG Com 02/18/22 02/18/22 02/18/22 18:56 20:04 20:04 WBC RBC Hgb Hct MCV MCH MCHC RDW Plt Count MPV Immature Gran % (Auto) Neut % (Auto) Lymph % (Auto) [place] % (Auto) Eos % (Auto) Baso % (Auto) Lymph # (Auto) [place] # (Auto) Eos # (Auto) Baso # (Auto) Abs Immat Gran (auto) Absolute Neuts (auto) Absolute Nucleated RBC Nucleated RBC % (auto) Sodium Potassium Chloride Carbon Dioxide Anion Gap BUN Creatinine Estim Creat Clear Calc Estimated GFR Random Glucose Estimat Average Glucose Hemoglobin A1c % Lactic Acid Calcium Magnesium Total Bilirubin AST ALT Alkaline Phosphatase Total Protein Albumin Triglycerides Cholesterol LDL Cholesterol, Calc HDL Cholesterol Vitamin B12 Folate TSH Free T4 Urine Color YELLOW Urine Appearance CLEAR Urine pH 5.5 Ur Specific [place] 1.020 Urine Protein NEG Urine Glucose (UA) NEG Urine Ketones NEG Urine Blood 2+ H Urine Nitrite NEG Ur Leukocyte Esterase NEG Urine RBC 10-14 H Urine WBC 0 Ur Squamous Epith Cells 2+ Urine Bacteria 3+ Urine Opiates Screen Not Detected Urine Fentanyl Screen Not Detected Ur Barbiturates Screen Not Detected Ur Phencyclidine Scrn Not Detected Ur Amphetamines Screen Not Detected U Benzodiazepines Scrn Not Detected Urine Cocaine Screen Not Detected U Marijuana (THC) Screen Not Detected Ethyl Alcohol COVID-19 ([facility]) Negative COVID-19 GLOG Com See Note 02/19/22 02/20/22 02/20/22 01:48 08:01 08:01 WBC RBC Hgb Hct MCV MCH MCHC RDW Plt Count MPV Immature Gran % (Auto) Neut % (Auto) Lymph % (Auto) [place] % (Auto) Eos % (Auto) Baso % (Auto) Lymph # (Auto) [place] # (Auto) Eos # (Auto) Baso # (Auto) Abs Immat Gran (auto) Absolute Neuts (auto) Absolute Nucleated RBC Nucleated RBC % (auto) Sodium Potassium Chloride Carbon Dioxide Anion Gap BUN Creatinine Estim Creat Clear Calc Estimated GFR Random Glucose Estimat Average Glucose 105 Hemoglobin A1c % 5.3 Lactic Acid 0.9 Calcium Magnesium 2.3 Total Bilirubin AST ALT Alkaline Phosphatase Total Protein Albumin Triglycerides 151 Cholesterol 242 LDL Cholesterol, Calc 159 HDL Cholesterol 53 Vitamin B12 Folate TSH 2.34 Free T4 0.90 Urine Color Urine Appearance Urine pH Ur Specific [place] Urine Protein Urine Glucose (UA) Urine Ketones Urine Blood Urine Nitrite Ur Leukocyte Esterase Urine RBC Urine WBC Ur Squamous Epith Cells Urine Bacteria Urine Opiates Screen Urine Fentanyl Screen Ur Barbiturates Screen Ur Phencyclidine Scrn Ur Amphetamines Screen U Benzodiazepines Scrn Urine Cocaine Screen U Marijuana (THC) Screen Ethyl Alcohol COVID-19 ([facility]) COVID-19 Clin Com 02/20/22 02/20/22 08:01 13:34 WBC 15.9 H RBC 4.51 Hgb 13.0 Hct 40.3 MCV 89.4 D MCH 28.8 MCHC 32.3 RDW 12.6 Plt Count 375 MPV 8.8 L Immature Gran % (Auto) 0.6 H Neut % (Auto) 72.0 Lymph % (Auto) 17.2 L [place] % (Auto) 6.1 Eos % (Auto) 3.5 Baso % (Auto) 0.6 Lymph # (Auto) 2.7 [place] # (Auto) 1.0 Eos # (Auto) 0.6 H Baso # (Auto) 0.1 Abs Immat Gran (auto) 0.10 H Absolute Neuts (auto) 11.5 H Absolute Nucleated RBC 0.000 Nucleated RBC % (auto) 0.0 Sodium Potassium Chloride Carbon Dioxide Anion Gap BUN Creatinine Estim Creat Clear Calc Estimated GFR Random Glucose Estimat Average Glucose Hemoglobin A1c % Lactic Acid Calcium Magnesium Total Bilirubin AST ALT Alkaline Phosphatase Total Protein Albumin Triglycerides Cholesterol LDL Cholesterol, Calc HDL Cholesterol Vitamin B12 415 Folate 14.2 TSH Free T4 Urine Color Urine Appearance Urine pH Ur Specific [place] Urine Protein Urine Glucose (UA) Urine Ketones Urine Blood Urine Nitrite Ur Leukocyte Esterase Urine RBC Urine WBC Ur Squamous Epith Cells Urine Bacteria Urine Opiates Screen Urine Fentanyl Screen Ur Barbiturates Screen Ur Phencyclidine Scrn Ur Amphetamines Screen U Benzodiazepines Scrn Urine Cocaine Screen U Marijuana (THC) Screen Ethyl Alcohol COVID-19 ([facility]) COVID-19 Clin Com EKG EKG: reviewed EKG Comment: NSR QRS axis shift L. Medically cleared for ECT by hospitalist consultation Imaging Radiology Impressions: ITS Impressions Chest X-Ray 02/18/22 22:10 IMPRESSION: Unremarkable examination. Meds/Allergies Meds Home Medications Acetaminophen (Acetaminophen 325 Mg Tablet) 650 mg PO Q6H PRN PRN Reason: Headache/Pain Mild Scale (1-3) Al Hydroxide/Mg Hydroxide (Magnesium Hydrox/Alum Hydrox 30 Ml Oral.Susp) 30 ml PO Q6H PRN PRN Reason: Heartburn/Nausea Bupropion HCl (Bupropion Hcl Xl 300 Mg Tab.Er.24h) 300 mg PO DAILY [facility] Last Admin: 02/20/22 08:44 Dose: 300 mg Documented by: Hydroxyzine HCl (Hydroxyzine Hcl 25 Mg Tablet) 25 mg PO BEDTIME PRN PRN Reason: Anxiety Last Admin: 02/20/22 20:30 Dose: 25 mg Documented by: Magnesium Hydroxide (Milk Of Magnesia 30 Ml Oral.Susp) 30 ml PO DAILY PRN PRN Reason: Constipation Nicotine Polacrilex (Nicotine Polacrilex 2 Mg Gum) 2 mg BUCCAL Q2H PRN PRN Reason: Nicotine Cravings Last Admin: 02/20/22 11:55 Dose: 2 mg Documented by: Quetiapine Fumarate (Quetiapine Fumarate 100 Mg Tablet) 100 mg PO BEDTIME PRN PRN Reason: insomnia Last Admin: 02/20/22 20:30 Dose: 100 mg Documented by: Sertraline HCl (Sertraline Hcl 100 Mg Tablet) 100 mg PO DAILY [facility] Last Admin: 02/20/22 08:44 Dose: 100 mg Documented by: Trazodone HCl (Trazodone Hcl 50 Mg Tablet) 50 mg PO BEDTIME PRN PRN Reason: Insomnia Last Admin: 02/20/22 20:29 Dose: 50 mg Documented by: Allergies Allergies Allergy/AdvReac Type Severity Reaction Status Date / Time No Known Allergies Allergy Mild NOT Verified 12/10/21 13:07 APPLICABLE Mental Status Exam Mental Status Exam Patient Appearance: Appropriate Patient Orientation: Person, Place, Time and Situation Level of Consciousness: Alert Patient Behavior: Appropriate, Talkative, Cooperative, Passive, Anxious, Fearful, Fatigued, Distractible, Isolative, Good Eye Contact and Crying Mood Description: Depressed, Anxious and Sad Affect Description: Flat Patient Cognition Impaired: No Ability to Follow Directions: Good Speech Pattern: Spontaneous Speech Memory Description: Intact Hallucinations: None Delusions: Not Present Perceptual Disturbances: Depersonalization Thought Process: Rumination and Slowed Thinking Thought Content: positive for Perseveration Depressive Symptoms: Increased Anxiety, Insomnia, Diff. Making Decisions, Increased Irritability, Difficulty Sleeping, Crying Spells, Loss of Int. in Activity, Feelings of Worthlessness, Hopelessness, Isolating-Friends/Family, Feelings of Guilt, Unhappiness, Increased Fatigue, Low Self Esteem, Loss of Energy and Difficulty Concentrating Judgement: Fair Assessment & Plan Assessment & Plan (1) MDD (major depressive disorder), recurrent severe, without psychosis: Status: Acute Code(s): F33.2 - Major depressive disorder, recurrent severe without psychotic features (2) Alcohol use disorder, moderate, in early remission: Status: Acute Code(s): F10.21 - Alcohol dependence, in remission Plan 51 yo female, history of recurrent severe major depression, currently in her sixth month of acute symptoms without relief. Episode began Sep 2021, pt was using alcohol to sleep-attended [facility] and has had no relief since with medication changes. By history ECT has been effective and she returns for consideration for this treatment. Plan: Medical Clearance, labs, EKG for ECT are completed. First treatment 02/21/22. Continue current regime. Patient educated on: ECT and therapeutic strategies Informed Consent: understands Reason for continued inpatient stay Substantial Risk for: inability to function and rapid decompensation
[2022-02-20 18:00] VITALS: BP 148/56; PULSE 85; RESP 16; TEMP 36.8; O2SAT 98
[2022-02-20] MEDS: traZODone HCL 50 MG TABLET PO (20:29)
[2022-02-20] MEDS: hydrOXYzine HCL 25 MG TABLET PO (20:30)
[2022-02-20] MEDS: QUEtiapine Fumarate 100 MG TABLET PO (20:30)
[2022-02-21] VITALS (8 sets, daily range): BP systolic 102–123; BP diastolic 58–73; PULSE 80–99; RESP 12–18; TEMP 36.1–37.3; O2SAT 96–98
--- NOTE | 2022-02-21 08:00 | HO.ANESPROP2 ---
HPI - Anesthesia Eval Consult details Narrative: For ECT PMFSH Active Problems Active Problems: All Active Problems (Updated 02/20/22 @ 16:22 by Mojgan Mena MD) Pre-op evaluation (Acute) Leukocytosis (Acute) Alcohol use disorder, moderate, in early remission (Acute) MDD (major depressive disorder), recurrent severe, without psychosis (Acute) HUMBERTO (generalized anxiety disorder) (Acute) Past Medical History Medical History Basal cell carcinoma H/O hidradenitis suppurativa History of fracture of left ankle Family History Family history of problems with anesthesia: No Surgical History History of Problems with Anesthesia: No Social History Social History Household Members: None Household Members Other:: N/A Housing: Condominium Do you presently have visiting nurse or other home services: No Unable to assess alcohol history related to: Unable to respond Patient Tobacco Use Status: Current everyday Tobacco user Tobacco use type: Cigarette Cigarette Packs Per Day: 0.25 Cigarettes Per Day: 5.0 Smoked in Last 30 Days: Yes e-Cigarette/Vaping Use: Currently Using Patient Interested in Nicotine Replacement: Yes Patient Given Instructions on How to Stop Smoking: No Use of substances other than those prescribed or required for medical reasons: Yes Substance Use Type: Marijuana and Caffiene Substance Use Frequency: Occasionally Last Used Substance Other:: July 2021 Currently Displaying Signs/Symptoms of Drug Intoxication Withdrawal: No Any prior treatment program specific to substance use: Yes ([facility]) Have you been hit, kicked, punched, or otherwise hurt by someone within the past year? If so, by whom?: No Do you feel safe in your current relationship?: No Is there a partner from a previous relationship who is making you feel unsafe now?: No Are you made to feel afraid or neglected: No Advance Directives: No Advance Directives Information Provided: No Guardian: No Do you have thoughts of harming others: None Do you have a plan to hurt others: No Plan Recently lost weight without trying: No Nutrition Risks: No Nutritional Risk Patient : No : No Poor oral hygiene: No service: No Sexual orientation: Straight/Heterosexual Meds Allergies Allergy/AdvReac Type Severity Reaction Status Date / Time No Known Allergies Allergy Mild NOT Verified 12/10/21 13:07 APPLICABLE Active Medications: Current Medications Acetaminophen (Acetaminophen 325 Mg Tablet) 650 mg PO Q6H PRN PRN Reason: Headache/Pain Mild Scale (1-3) Al Hydroxide/Mg Hydroxide (Magnesium Hydrox/Alum Hydrox 30 Ml Oral.Susp) 30 ml PO Q6H PRN PRN Reason: Heartburn/Nausea Bupropion HCl (Bupropion Hcl Xl 300 Mg Tab.Er.24h) 300 mg PO DAILY [facility] Last Admin: 02/20/22 08:44 Dose: 300 mg Documented by: Hydroxyzine HCl (Hydroxyzine Hcl 25 Mg Tablet) 25 mg PO BEDTIME PRN PRN Reason: Anxiety Last Admin: 02/20/22 20:30 Dose: 25 mg Documented by: Magnesium Hydroxide (Milk Of Magnesia 30 Ml Oral.Susp) 30 ml PO DAILY PRN PRN Reason: Constipation Nicotine Polacrilex (Nicotine Polacrilex 2 Mg Gum) 2 mg BUCCAL Q2H PRN PRN Reason: Nicotine Cravings Last Admin: 02/20/22 11:55 Dose: 2 mg Documented by: Quetiapine Fumarate (Quetiapine Fumarate 100 Mg Tablet) 100 mg PO BEDTIME PRN PRN Reason: insomnia Last Admin: 02/20/22 20:30 Dose: 100 mg Documented by: Quetiapine Fumarate (Quetiapine Fumarate 25 Mg Tablet) 25 mg PO MoWeFr@[id number] [facility] Last Admin: 02/21/22 07:38 Dose: Not Given Documented by: Sertraline HCl (Sertraline Hcl 100 Mg Tablet) 100 mg PO DAILY [facility] Last Admin: 02/20/22 08:44 Dose: 100 mg Documented by: Trazodone HCl (Trazodone Hcl 50 Mg Tablet) 50 mg PO BEDTIME PRN PRN Reason: Insomnia Last Admin: 02/20/22 20:29 Dose: 50 mg Documented by: Home Medications Medication Instructions Recorded Confirmed Last Taken Type bupropion HCl 150 mg 24 hr tablet, 300 mg PO QAM 02/18/22 02/18/22 Unknown History extended release quetiapine 100 mg tablet 1 - 3 tab PO BEDTIME PRN 02/18/22 02/18/22 Unknown History sertraline 100 mg tablet 100 mg PO QAM 02/18/22 02/18/22 Unknown History Exam Exam Date and Time: February 21, 2022 0800 Height,Weight and Vital Signs: Height 5 ft 5 in Weight 88.8 kg Last Vital Signs Temp 97.7 F 02/21/22 06:37 Pulse 83 02/21/22 06:37 Resp 18 02/21/22 06:37 BP 123/73 02/21/22 06:37 Pulse Ox 96 02/21/22 06:37 Pertinent Lab Results Pertinent Lab Results: Laboratory Tests 02/18/22 02/18/22 02/18/22 18:23 18:23 18:23 WBC 19.1 H RBC 4.54 Hgb 13.3 Hct 43.8 MCV 96.5 MCH 29.3 MCHC 30.4 L RDW 12.8 Plt Count 385 MPV 9.5 Immature Gran % (Auto) 0.8 H Neut % (Auto) 71.9 Lymph % (Auto) 18.2 L Cook % (Auto) 6.2 Eos % (Auto) 2.4 Baso % (Auto) 0.5 Lymph # (Auto) 3.5 Cook # (Auto) 1.2 Eos # (Auto) 0.5 H Baso # (Auto) 0.1 Abs Immat Gran (auto) 0.16 H Absolute Neuts (auto) 13.8 H Absolute Nucleated RBC 0.000 Nucleated RBC % (auto) 0.0 Sodium 137 Potassium 4.4 Chloride 104 Carbon Dioxide 20 L Anion Gap 17 BUN 10 Creatinine 0.85 Estim Creat Clear Calc 87.0 Estimated GFR > 60 Random Glucose 102 Estimat Average Glucose Hemoglobin A1c % Lactic Acid Calcium 10.2 Magnesium 2.2 Total Bilirubin 0.4 AST 24 ALT 34 H Alkaline Phosphatase 82 Total Protein 7.4 Albumin 4.3 Triglycerides Cholesterol LDL Cholesterol, Calc HDL Cholesterol Vitamin B12 Folate TSH Free T4 Urine Color Urine Appearance Urine pH Ur Specific Archer Urine Protein Urine Glucose (UA) Urine Ketones Urine Blood Urine Nitrite Ur Leukocyte Esterase Urine RBC Urine WBC Ur Squamous Epith Cells Urine Bacteria Urine Opiates Screen Urine Fentanyl Screen Ur Barbiturates Screen Ur Phencyclidine Scrn Ur Amphetamines Screen U Benzodiazepines Scrn Urine Cocaine Screen U Marijuana (THC) Screen Ethyl Alcohol < 10 COVID-19 ([facility]) COVID-19 Clin Com 02/18/22 02/18/22 02/18/22 18:56 20:04 20:04 WBC RBC Hgb Hct MCV MCH MCHC RDW Plt Count MPV Immature Gran % (Auto) Neut % (Auto) Lymph % (Auto) [place] % (Auto) Eos % (Auto) Baso % (Auto) Lymph # (Auto) [place] # (Auto) Eos # (Auto) Baso # (Auto) Abs Immat Gran (auto) Absolute Neuts (auto) Absolute Nucleated RBC Nucleated RBC % (auto) Sodium Potassium Chloride Carbon Dioxide Anion Gap BUN Creatinine Estim Creat Clear Calc Estimated GFR Random Glucose Estimat Average Glucose Hemoglobin A1c % Lactic Acid Calcium Magnesium Total Bilirubin AST ALT Alkaline Phosphatase Total Protein Albumin Triglycerides Cholesterol LDL Cholesterol, Calc HDL Cholesterol Vitamin B12 Folate TSH Free T4 Urine Color YELLOW Urine Appearance CLEAR Urine pH 5.5 Ur Specific [place] 1.020 Urine Protein NEG Urine Glucose (UA) NEG Urine Ketones NEG Urine Blood 2+ H Urine Nitrite NEG Ur Leukocyte Esterase NEG Urine RBC 10-14 H Urine WBC 0 Ur Squamous Epith Cells 2+ Urine Bacteria 3+ Urine Opiates Screen Not Detected Urine Fentanyl Screen Not Detected Ur Barbiturates Screen Not Detected Ur Phencyclidine Scrn Not Detected Ur Amphetamines Screen Not Detected U Benzodiazepines Scrn Not Detected Urine Cocaine Screen Not Detected U Marijuana (THC) Screen Not Detected Ethyl Alcohol COVID-19 ([facility]) Negative COVID-19 Clin Com See Note 02/19/22 02/20/22 02/20/22 01:48 08:01 08:01 WBC RBC Hgb Hct MCV MCH MCHC RDW Plt Count MPV Immature Gran % (Auto) Neut % (Auto) Lymph % (Auto) Cook % (Auto) Eos % (Auto) Baso % (Auto) Lymph # (Auto) [place] # (Auto) Eos # (Auto) Baso # (Auto) Abs Immat Gran (auto) Absolute Neuts (auto) Absolute Nucleated RBC Nucleated RBC % (auto) Sodium Potassium Chloride Carbon Dioxide Anion Gap BUN Creatinine Estim Creat Clear Calc Estimated GFR Random Glucose Estimat Average Glucose 105 Hemoglobin A1c % 5.3 Lactic Acid 0.9 Calcium Magnesium 2.3 Total Bilirubin AST ALT Alkaline Phosphatase Total Protein Albumin Triglycerides 151 Cholesterol 242 LDL Cholesterol, Calc 159 HDL Cholesterol 53 Vitamin B12 Folate TSH 2.34 Free T4 0.90 Urine Color Urine Appearance Urine pH Ur Specific [place] Urine Protein Urine Glucose (UA) Urine Ketones Urine Blood Urine Nitrite Ur Leukocyte Esterase Urine RBC Urine WBC Ur Squamous Epith Cells Urine Bacteria Urine Opiates Screen Urine Fentanyl Screen Ur Barbiturates Screen Ur Phencyclidine Scrn Ur Amphetamines Screen U Benzodiazepines Scrn Urine Cocaine Screen U Marijuana (THC) Screen Ethyl Alcohol COVID-19 ([facility]) COVID-19 Clin Com 02/20/22 02/20/22 08:01 13:34 WBC 15.9 H RBC 4.51 Hgb 13.0 Hct 40.3 MCV 89.4 D MCH 28.8 MCHC 32.3 RDW 12.6 Plt Count 375 MPV 8.8 L Immature Gran % (Auto) 0.6 H Neut % (Auto) 72.0 Lymph % (Auto) 17.2 L [place] % (Auto) 6.1 Eos % (Auto) 3.5 Baso % (Auto) 0.6 Lymph # (Auto) 2.7 Cook # (Auto) 1.0 Eos # (Auto) 0.6 H Baso # (Auto) 0.1 Abs Immat Gran (auto) 0.10 H Absolute Neuts (auto) 11.5 H Absolute Nucleated RBC 0.000 Nucleated RBC % (auto) 0.0 Sodium Potassium Chloride Carbon Dioxide Anion Gap BUN Creatinine Estim Creat Clear Calc Estimated GFR Random Glucose Estimat Average Glucose Hemoglobin A1c % Lactic Acid Calcium Magnesium Total Bilirubin AST ALT Alkaline Phosphatase Total Protein Albumin Triglycerides Cholesterol LDL Cholesterol, Calc HDL Cholesterol Vitamin B12 415 Folate 14.2 TSH Free T4 Urine Color Urine Appearance Urine pH Ur Specific Archer Urine Protein Urine Glucose (UA) Urine Ketones Urine Blood Urine Nitrite Ur Leukocyte Esterase Urine RBC Urine WBC Ur Squamous Epith Cells Urine Bacteria Urine Opiates Screen Urine Fentanyl Screen Ur Barbiturates Screen Ur Phencyclidine Scrn Ur Amphetamines Screen U Benzodiazepines Scrn Urine Cocaine Screen U Marijuana (THC) Screen Ethyl Alcohol COVID-19 ([facility]) COVID-19 Clin Com Airway Mallampati Class: I TM Dist: >3cm Neck ROM: Full Loose/Missing/Broken Teeth: No Heart: ok Lungs: ok Assessment and Plan Assessment Anesthesia Assessment: Anesthesia Plan Discussed and Chart Reviewed Final Anesthetic Review Family History of Problems with Anesthesia: No History of Problems with Anesthesia: No NPO: Yes ASA Class: III Final Preanesthetic Review: No Changes in Pt Med Stat, Meds/Allgs Chart Reviewed, Consent Obtained/Reviewed and Anes Risks/Benef Reviewed Patient Risk: Intermediate Procedure Risk: Low Anesthetic Plan Anesthetic Plan: GA and Agree w/ Assess. and Plan Disposition: Standard PACU
--- NOTE | 2022-02-21 08:27 | MHC.SHP ---
Pre-Procedural Eval Section A Date of Service: 02/21/22 The patient is an INPATIENT: Yes Changes since office visit: No Cold of Flu in the past 2 weeks, No New Medical Problems, No Changes in Medication and No Patient answered all questions The History & Physical has been completed within 30 days and I have reviewed it.: Yes Section B Chief Complaint: ref by doc SI Details of Present Illness: Hx of depression, improved wiht ECT, failed TMS and Esketamine Relevant Family History (Specify if Yes): No Relevant Social History: None Present Medications: None Medical History: No relevant PMH History of Previous Operations: No relevant previous surgery Allergies: Allergies Allergy/AdvReac Type Severity Reaction Status Date / Time No Known Allergies Allergy Mild NOT Verified 12/10/21 13:07 APPLICABLE Review of Systems Sugical H&P ROS: Negative: Constitution, Cardiovascular, Respiratory, Neurological, Psychiatric, Hem-Onc, Allergic/Immunologic, Gastrointestinal, Genitourinary, Musculoskeletal, Integumentary, Endocrine and Eyes/Ears/Nose/Throat Exam Surgical H&P Exam: Normal: HEENT, Normal: Heart, Normal: Lungs, Normal: Extremities, Normal: Abdomen, Normal: Skin and Normal: Neurological Plan Diagnosis/Plan: Unchanged I have reviewed the history and physical and performed a pertinent physical examination on my patient. No changes have occurred unless specified.
--- NOTE | 2022-02-21 08:34 | HO.ECTPROC ---
ECT Procedure Note Diagnosis/Treatment Date of Service: 02/21/22 Diagnosis: Bipolar disorder Previous ECT Date: 02/21/22 Current Treatment Number: 1 Treatment: Series Interval Clinical Notes: The patient has been very dysphoric and anxious. Historically, she did well on ECT. Last ECT in 2013 ECT Settings Device: THYMATRON DGx Electrode Placement: Right Unilateral Program/Pulse Width: 0.25 Energy Percent: 100 Seizure Duration By EEG (in seconds): 41 By Motor Observation (in seconds): 31 Medications Administration General Anesthetic: Etomidate (12) Muscle Relaxant: Succinylcholine (100) Ancillary Medications Anti-emetics: Zofran - Pre ECT Miscillaneous Medications: Propofol and Other (Roncuronium 5 mg) Airway Management Airway Management: Bag Mask Ventilation Treatment Recommendations No Changes Recommended: No change Pt Tolerated Procedure w/o Issue: Yes
--- NOTE | 2022-02-21 09:12 | HO.POSTANES ---
Post Anesthesia Evaluation Post Anesthesia Evaluation Vital Signs: Vital Signs Temp Pulse Resp BP Pulse Ox 02/21/22 08:50 99 12 111/60 97 02/21/22 08:45 99.1 F 95 16 120/70 96 02/21/22 06:37 97.7 F 83 18 123/73 96 Anesthesia: General Mental Status: Awake Pain Control: Satisfactory Nausea/Vomiting: None Hydration: Adequate Anesthesia-Related Issues: No Anes. Related Issues
[2022-02-21] MEDS: Sertraline HCL 100 MG TABLET PO (10:11)
[2022-02-21] MEDS: buPROPion HCl XL 300 MG TAB.ER.24H PO (10:12)
--- NOTE | 2022-02-21 14:18 | HO.PSYCHPN ---
Subjective Subjective Date of Service: 02/21/22 Reason For Visit: recurrent major depression Interim History: Pt seen x 3 in brief intervals after ECT with improving clarity, brighter affect. Initially, confused, no recall of meeting with tw on 02/20, but reporting she was pleased that she came in for treatment and that she was able to begin promptly. On second meeting, she reports recalling our meeting yesterday and that another ECT pt had been very supportive of her upon her return, telling her that he saw her there and not to worry. She felt supported by this she states. On our third meeting pt was in her room, reading, relaxing, offering support to her room-mate who was in distress. She discussed her concern about having her FMLA coming to an end and asks that we discuss MRC next week, when I am feeling clearer which we agreed to do. Tearful at times during this conversation, but reports she is feeling improved. Medication Compliance: Yes Side effects from medications: No Attending Groups: No Review of Systems Acute medical concerns: No Medical Review of Systems: unchanged Review of Systems Psychiatric: Reports abnormal sleep pattern, Reports anxiety, Reports depression, Reports difficulty concentrating, Reports hopelessness, Reports irritability, Reports anhedonia and Reports suicidal ideation (denies) Mental Status Exam Mental Status Exam Patient Appearance: Disheveled Patient Orientation: Person, Place, Time and Situation Level of Consciousness: Alert Patient Behavior: Talkative, Good Eye Contact and Crying Mood Description: Depressed and Anxious Affect Description: Flat Patient Cognition Impaired: No Ability to Follow Directions: Good Speech Pattern: Spontaneous Speech Memory Description: Episodic Impaired Hallucinations: None Thought Process: Rumination Thought Content: positive for Perseveration and positive for Suicidal Ideation (denies) Depressive Symptoms: Increased Anxiety, Diff. Making Decisions, Increased Irritability, Difficulty Sleeping, Crying Spells, Loss of Int. in Activity, Feelings of Worthlessness, Hopelessness, Isolating-Friends/Family, Unhappiness, Increased Fatigue, Thoughts of /Suicide (denies), Low Self Esteem, Loss of Energy and Difficulty Concentrating Judgement: Fair Diagnostics Vital Signs (24Hr): Vital Signs - 24 hr 02/20/22 18:00 02/21/22 06:37 02/21/22 08:45 Temperature 98.2 F 97.7 F 99.1 F Pulse Rate 85 83 95 Respiratory Rate 16 18 16 Blood Pressure 148/56 H 123/73 120/70 Pulse Oximetry 98 96 96 02/21/22 08:50 02/21/22 08:55 02/21/22 09:00 Temperature 98.9 F Pulse Rate 99 95 92 Respiratory Rate 12 14 12 Blood Pressure 111/60 123/63 102/69 Pulse Oximetry 97 96 98 02/21/22 09:15 02/21/22 09:43 Temperature 98.9 F 97.0 F Pulse Rate 89 82 Respiratory Rate 14 16 Blood Pressure 113/65 105/66 Pulse Oximetry 98 97 BMI result Body Mass Index 32.5 Labs Results: 02/20/22 13:34 02/18/22 18:23 Labs: Laboratory Results - last 48 hr 02/20/22 02/20/22 02/20/22 08:01 08:01 08:01 WBC RBC Hgb Hct MCV MCH MCHC RDW Plt Count MPV Immature Gran % (Auto) Neut % (Auto) Lymph % (Auto) [place] % (Auto) Eos % (Auto) Baso % (Auto) Lymph # (Auto) [place] # (Auto) Eos # (Auto) Baso # (Auto) Abs Immat Gran (auto) Absolute Neuts (auto) Absolute Nucleated RBC Nucleated RBC % (auto) Estimat Average Glucose 105 Hemoglobin A1c % 5.3 Magnesium 2.3 Triglycerides 151 Cholesterol 242 LDL Cholesterol, Calc 159 HDL Cholesterol 53 Vitamin B12 415 Folate 14.2 TSH 2.34 Free T4 0.90 02/20/22 13:34 WBC 15.9 H RBC 4.51 Hgb 13.0 Hct 40.3 MCV 89.4 D MCH 28.8 MCHC 32.3 RDW 12.6 Plt Count 375 MPV 8.8 L Immature Gran % (Auto) 0.6 H Neut % (Auto) 72.0 Lymph % (Auto) 17.2 L [place] % (Auto) 6.1 Eos % (Auto) 3.5 Baso % (Auto) 0.6 Lymph # (Auto) 2.7 [place] # (Auto) 1.0 Eos # (Auto) 0.6 H Baso # (Auto) 0.1 Abs Immat Gran (auto) 0.10 H Absolute Neuts (auto) 11.5 H Absolute Nucleated RBC 0.000 Nucleated RBC % (auto) 0.0 Estimat Average Glucose Hemoglobin A1c % Magnesium Triglycerides Cholesterol LDL Cholesterol, Calc HDL Cholesterol Vitamin B12 Folate TSH Free T4 Imaging Radiology Impressions: ITS Impressions Chest X-Ray 02/18/22 22:10 IMPRESSION: Unremarkable examination. Medications Medications Current Medications Acetaminophen (Acetaminophen 325 Mg Tablet) 650 mg PO Q6H PRN PRN Reason: Headache/Pain Mild Scale (1-3) Acetaminophen (Acetaminophen 325 Mg Tablet) 650 mg PO ONCE PRN PRN Reason: Pain, Mild (Pain Scale 1-3) Al Hydroxide/Mg Hydroxide (Magnesium Hydrox/Alum Hydrox 30 Ml Oral.Susp) 30 ml PO Q6H PRN PRN Reason: Heartburn/Nausea Bupropion HCl (Bupropion Hcl Xl 300 Mg Tab.Er.24h) 300 mg PO DAILY [facility] Last Admin: 02/21/22 10:12 Dose: 300 mg Documented by: Hydroxyzine HCl (Hydroxyzine Hcl 25 Mg Tablet) 25 mg PO BEDTIME PRN PRN Reason: Anxiety Last Admin: 02/20/22 20:30 Dose: 25 mg Documented by: Magnesium Hydroxide (Milk Of Magnesia 30 Ml Oral.Susp) 30 ml PO DAILY PRN PRN Reason: Constipation Nicotine Polacrilex (Nicotine Polacrilex 2 Mg Gum) 2 mg BUCCAL Q2H PRN PRN Reason: Nicotine Cravings Last Admin: 02/20/22 11:55 Dose: 2 mg Documented by: Ondansetron HCl (Ondansetron Hcl 4 Mg/2 Ml Vial) 4 mg IVPUSH ONCE PRN PRN Reason: Nausea and Vomiting Quetiapine Fumarate (Quetiapine Fumarate 100 Mg Tablet) 100 mg PO BEDTIME PRN PRN Reason: insomnia Last Admin: 02/20/22 20:30 Dose: 100 mg Documented by: Quetiapine Fumarate (Quetiapine Fumarate 25 Mg Tablet) 25 mg PO MoWeFr@0530 [facility] Last Admin: 02/21/22 07:38 Dose: Not Given Documented by: Sertraline HCl (Sertraline Hcl 100 Mg Tablet) 100 mg PO DAILY [facility] Last Admin: 02/21/22 10:11 Dose: 100 mg Documented by: Trazodone HCl (Trazodone Hcl 50 Mg Tablet) 50 mg PO BEDTIME PRN PRN Reason: Insomnia Last Admin: 02/20/22 20:29 Dose: 50 mg Documented by: Allergies Allergies Allergy/AdvReac Type Severity Reaction Status Date / Time No Known Allergies Allergy Mild NOT Verified 12/10/21 13:07 APPLICABLE Assessment & Plan Assessment & Plan (1) MDD (major depressive disorder), recurrent severe, without psychosis: Status: Acute Code(s): F33.2 - Major depressive disorder, recurrent severe without psychotic features (2) Alcohol use disorder, moderate, in early remission: Status: Acute Code(s): F10.21 - Alcohol dependence, in remission Plan 51 yo female, history of recurrent severe major depression, currently in her sixth month of acute symptoms without relief. Episode began Sep 2021, pt was using alcohol to sleep-attended [facility] [place] and has had no relief since with medication changes. By history ECT has been effective and she returns for consideration for this treatment. Plan: Medical Clearance, labs, EKG for ECT are completed. First treatment 02/21/22. Continue current regime. 02/21/22 ECT #1 completed. Continue current plan of care I spent minutes with the patient and/or on the patient floor today, greater than?50% of which was spent counseling/coordinating care. Patient educated on: therapeutic strategies Informed Consent: understands Reason for contiued inpatient stay Substantial Risk for: inability to function and rapid decompensation
[2022-02-21] MEDS: hydrOXYzine HCL 25 MG TABLET PO (20:47)
[2022-02-21] MEDS: QUEtiapine Fumarate 100 MG TABLET PO (20:47)
[2022-02-22 06:00] VITALS: BP 113/66; PULSE 77; RESP 15; TEMP 37.2; O2SAT 99
[2022-02-22] MEDS: buPROPion HCl XL 300 MG TAB.ER.24H PO (09:22)
[2022-02-22] MEDS: Sertraline HCL 100 MG TABLET PO (09:22)
[2022-02-22] MEDS: Nicotine Polacrilex 2 MG GUM BUCCAL (15:30)
--- NOTE | 2022-02-22 16:46 | P.PNPSI_ITS ---
Subjective Subjective Date of Service: 02/22/22 Reason For Visit: recurrent major depression Interim History: Patient seen and discussed with team. Pt has been going to group, had her first ECT 02/21/22. Patient evaluated today and upon interview she reports her ECT went okay, had felt nervous. Says she is concerned that she doesnt have transportation for ECT when she leaves. At home pt says she sleeps and watches tv, sometimes cant leave the house due to anxiety. Signed a 3 day notice. Has ECT Thursday. Interested in [facility] disability but needs help with paperwork.? In the milieu, patient is safe and appropriate in behavior. Denies SI/SIB/HI upon inquiry. Denies irritability or assaultive ideation. Says she feels safe. Medication Compliance: Yes Side effects from medications: No Attending Groups: Yes Review of Systems Acute medical concerns: No Medical Review of Systems: unchanged Mental Status Exam Mental Status Exam Narrative: Patient Appearance:?Disheveled Patient Orientation:?Person, Place, Time and Situation Level of Consciousness:?Alert Patient Behavior:?Talkative, Good Eye Contact and Crying Mood Description:?Depressed and Anxious Affect Description:?Flat Patient Cognition Impaired:?No Ability to Follow Directions:?Good Speech Pattern:?Spontaneous Speech Memory Description:?Episodic Impaired Hallucinations:?None Thought Process:?Rumination Thought Content:?positive for Perseveration and positive for Suicidal Ideation (denies) Depressive Symptoms:?Increased Anxiety, Diff. Making Decisions, Increased Irritability, Difficulty Sleeping, Crying Spells, Loss of Int. in Activity, Feelings of Worthlessness, Hopelessness, Isolating-Friends/Family, Unhappiness, Increased Fatigue, Thoughts of /Suicide (denies), Low Self Esteem, Loss of Energy and Difficulty Concentrating Judgement:?Fair Diagnostics Vital Signs (24Hr): Vital Signs - 24 hr 02/23/22 18:59 02/24/22 06:05 Temperature 98.9 F 97.2 F Pulse Rate 87 86 Respiratory Rate 18 Blood Pressure 114/56 L 115/61 Pulse Oximetry 98 BMI result Body Mass Index 32.5 Labs Results: 02/20/22 13:34 02/18/22 18:23 Imaging Radiology Impressions: ITS Impressions Chest X-Ray 02/18/22 22:10 IMPRESSION: Unremarkable examination. Medications Medications Current Medications Acetaminophen (Acetaminophen 325 Mg Tablet) 650 mg PO Q6H PRN PRN Reason: Headache/Pain Mild Scale (1-3) Acetaminophen (Acetaminophen 325 Mg Tablet) 650 mg PO ONCE PRN PRN Reason: Pain, Mild (Pain Scale 1-3) Al Hydroxide/Mg Hydroxide (Magnesium Hydrox/Alum Hydrox 30 Ml Oral.Susp) 30 ml PO Q6H PRN PRN Reason: Heartburn/Nausea Bupropion HCl (Bupropion Hcl Xl 300 Mg Tab.Er.24h) 300 mg PO DAILY [facility] Last Admin: 02/23/22 08:39 Dose: 300 mg Documented by: Hydroxyzine HCl (Hydroxyzine Hcl 25 Mg Tablet) 25 mg PO BEDTIME PRN PRN Reason: Anxiety Last Admin: 02/21/22 20:47 Dose: 25 mg Documented by: Magnesium Hydroxide (Milk Of Magnesia 30 Ml Oral.Susp) 30 ml PO DAILY PRN PRN Reason: Constipation Nicotine Polacrilex (Nicotine Polacrilex 2 Mg Gum) 2 mg BUCCAL Q2H PRN PRN Reason: Nicotine Cravings Last Admin: 02/22/22 15:30 Dose: 2 mg Documented by: Ondansetron HCl (Ondansetron Hcl 4 Mg/2 Ml Vial) 4 mg IVPUSH ONCE PRN PRN Reason: Nausea and Vomiting Quetiapine Fumarate (Quetiapine Fumarate 100 Mg Tablet) 100 mg PO BEDTIME PRN PRN Reason: insomnia Last Admin: 02/23/22 21:20 Dose: 100 mg Documented by: Quetiapine Fumarate (Quetiapine Fumarate 25 Mg Tablet) 25 mg PO MoWeFr@0530 [facility] Last Admin: 02/24/22 05:31 Dose: 25 mg Documented by: Sertraline HCl (Sertraline Hcl 100 Mg Tablet) 100 mg PO DAILY [facility] Last Admin: 02/23/22 08:39 Dose: 100 mg Documented by: Trazodone HCl (Trazodone Hcl 50 Mg Tablet) 50 mg PO BEDTIME PRN PRN Reason: Insomnia Last Admin: 02/23/22 21:20 Dose: 50 mg Documented by: Allergies Allergies Allergy/AdvReac Type Severity Reaction Status Date / Time No Known Allergies Allergy Mild NOT Verified 12/10/21 13:07 APPLICABLE Assessment & Plan Assessment & Plan (1) MDD (major depressive disorder), recurrent severe, without psychosis: Status: Acute Code(s): F33.2 - Major depressive disorder, recurrent severe without psychotic features (2) Alcohol use disorder, moderate, in early remission: Status: Acute Code(s): F10.21 - Alcohol dependence, in remission Plan 51 yo female, history of recurrent severe major depression, currently in her sixth month of acute symptoms without relief. Episode began Sep 2021, pt was using alcohol to sleep-attended RCA [place] and has had no relief since with medication changes. By history ECT has been effective and she returns for consideration for this treatment. Plan: Medical Clearance, labs, EKG for ECT are completed. First treatment 02/21/22. Continue current regime. 02/21/22 ECT #1 completed. Continue current plan of care 02/22/22 No medication changes I spent minutes with the patient and/or on the patient floor today, greater than?50% of which was spent counseling/coordinating care. Reason for contiued inpatient stay Substantial Risk for: rapid decompensation and med/psych decompensation
[2022-02-22 18:00] VITALS: BP 113/55; PULSE 88; TEMP 37.4; O2SAT 99
[2022-02-22] MEDS: QUEtiapine Fumarate 100 MG TABLET PO (21:43)
[2022-02-22] MEDS: traZODone HCL 50 MG TABLET PO (21:43)
[2022-02-23 06:00] VITALS: BP 109/62; PULSE 80; TEMP 36.7; O2SAT 99
[2022-02-23] MEDS: Sertraline HCL 100 MG TABLET PO (08:39)
[2022-02-23] MEDS: buPROPion HCl XL 300 MG TAB.ER.24H PO (08:39)
[2022-02-23 18:59] VITALS: BP 114/56; PULSE 87; TEMP 37.2
--- NOTE | 2022-02-23 19:55 | HO.PSYCHPN ---
Subjective Subjective Date of Service: 02/23/22 Reason For Visit: recurrent major depression Subjective Notes: Moy Warning, Conditional Voluntary and 3 Day Interim History: Patient seen and discussed with team. Patient evaluated today and upon interview she reports she is starting to worry about tomorrow due to having ECT but she is coping with this, reading in the milieu, playing board game with peers. Says she found her detention disability paperwork. Continues to worry about transportation for ECT upon discharge. Says her mood is a little bit lower. Slept really well. In the milieu, patient is safe and appropriate in behavior. Denies SI/SIB/HI upon inquiry. Denies irritability or assaultive ideation. Says she feels safe. Medication Compliance: Yes Side effects from medications: No Attending Groups: Yes Review of Systems Acute medical concerns: No Medical Review of Systems: unchanged Mental Status Exam Mental Status Exam Narrative: Patient Appearance:?Disheveled Patient Orientation:?Person, Place, Time and Situation Level of Consciousness:?Alert Patient Behavior:?Talkative, Good Eye Contact and Crying Mood Description:?Depressed and Anxious Affect Description:?Flat Patient Cognition Impaired:?No Ability to Follow Directions:?Good Speech Pattern:?Spontaneous Speech Memory Description:?Episodic Impaired Hallucinations:?None Thought Process:?Rumination Thought Content:?positive for Perseveration and positive for Suicidal Ideation (denies) Depressive Symptoms:?Increased Anxiety, Diff. Making Decisions, Increased Irritability, Difficulty Sleeping, Crying Spells, Loss of Int. in Activity, Feelings of Worthlessness, Hopelessness, Isolating-Friends/Family, Unhappiness, Increased Fatigue, Thoughts of /Suicide (denies), Low Self Esteem, Loss of Energy and Difficulty Concentrating Judgement:?Fair Diagnostics Vital Signs (24Hr): Vital Signs - 24 hr 02/23/22 18:59 02/24/22 06:00 02/24/22 06:05 Temperature 98.9 F 97.2 F 97.2 F Pulse Rate 87 86 86 Respiratory Rate 18 Blood Pressure 114/56 L 115/61 115/61 Pulse Oximetry 98 98 BMI result Body Mass Index 32.5 Labs Results: 02/20/22 13:34 02/18/22 18:23 Imaging Radiology Impressions: ITS Impressions Chest X-Ray 02/18/22 22:10 IMPRESSION: Unremarkable examination. Medications Medications Current Medications Acetaminophen (Acetaminophen 325 Mg Tablet) 650 mg PO Q6H PRN PRN Reason: Headache/Pain Mild Scale (1-3) Acetaminophen (Acetaminophen 325 Mg Tablet) 650 mg PO ONCE PRN PRN Reason: Pain, Mild (Pain Scale 1-3) Al Hydroxide/Mg Hydroxide (Magnesium Hydrox/Alum Hydrox 30 Ml Oral.Susp) 30 ml PO Q6H PRN PRN Reason: Heartburn/Nausea Bupropion HCl (Bupropion Hcl Xl 300 Mg Tab.Er.24h) 300 mg PO DAILY [facility] Last Admin: 02/23/22 08:39 Dose: 300 mg Documented by: Hydroxyzine HCl (Hydroxyzine Hcl 25 Mg Tablet) 25 mg PO BEDTIME PRN PRN Reason: Anxiety Last Admin: 02/21/22 20:47 Dose: 25 mg Documented by: Magnesium Hydroxide (Milk Of Magnesia 30 Ml Oral.Susp) 30 ml PO DAILY PRN PRN Reason: Constipation Nicotine Polacrilex (Nicotine Polacrilex 2 Mg Gum) 2 mg BUCCAL Q2H PRN PRN Reason: Nicotine Cravings Last Admin: 02/22/22 15:30 Dose: 2 mg Documented by: Ondansetron HCl (Ondansetron Hcl 4 Mg/2 Ml Vial) 4 mg IVPUSH ONCE PRN PRN Reason: Nausea and Vomiting Quetiapine Fumarate (Quetiapine Fumarate 100 Mg Tablet) 100 mg PO BEDTIME PRN PRN Reason: insomnia Last Admin: 02/23/22 21:20 Dose: 100 mg Documented by: Quetiapine Fumarate (Quetiapine Fumarate 25 Mg Tablet) 25 mg PO MoWeFr@0530 [facility] Last Admin: 02/24/22 05:31 Dose: 25 mg Documented by: Sertraline HCl (Sertraline Hcl 100 Mg Tablet) 100 mg PO DAILY [facility] Last Admin: 02/23/22 08:39 Dose: 100 mg Documented by: Trazodone HCl (Trazodone Hcl 50 Mg Tablet) 50 mg PO BEDTIME PRN PRN Reason: Insomnia Last Admin: 02/23/22 21:20 Dose: 50 mg Documented by: Allergies Allergies Allergy/AdvReac Type Severity Reaction Status Date / Time No Known Allergies Allergy Mild NOT Verified 12/10/21 13:07 APPLICABLE Assessment & Plan Assessment & Plan (1) MDD (major depressive disorder), recurrent severe, without psychosis: Status: Acute Code(s): F33.2 - Major depressive disorder, recurrent severe without psychotic features (2) Alcohol use disorder, moderate, in early remission: Status: Acute Code(s): F10.21 - Alcohol dependence, in remission Plan 51 yo female, history of recurrent severe major depression, currently in her sixth month of acute symptoms without relief. Episode began Sep 2021, pt was using alcohol to sleep-attended RCA [place] and has had no relief since with medication changes. By history ECT has been effective and she returns for consideration for this treatment. Plan: Medical Clearance, labs, EKG for ECT are completed. First treatment 02/21/22. Continue current regime. 02/21/22 ECT #1 completed. Continue current plan of care 02/22/22 No medication changes 02/23/22 no medication changes, ECT tomorrow I spent minutes with the patient and/or on the patient floor today, greater than?50% of which was spent counseling/coordinating care. Reason for contiued inpatient stay Substantial Risk for: harm to self and med/psych decompensation
[2022-02-23] MEDS: traZODone HCL 50 MG TABLET PO (21:20)
[2022-02-23] MEDS: QUEtiapine Fumarate 100 MG TABLET PO (21:20)
[2022-02-24] VITALS (12 sets, daily range): BP systolic 88–130; BP diastolic 57–77; PULSE 69–96; RESP 12–18; TEMP 36.2–37.7; O2SAT 91–98
[2022-02-24] MEDS: QUEtiapine Fumarate 25 MG TABLET PO (05:31)
--- NOTE | 2022-02-24 14:24 | HO.ANESPROP2 ---
[facility] Active Problems Active Problems: All Active Problems (Updated 02/20/22 @ 16:22 by Mojgan Mena MD) Pre-op evaluation (Acute) Leukocytosis (Acute) Alcohol use disorder, moderate, in early remission (Acute) MDD (major depressive disorder), recurrent severe, without psychosis (Acute) HUMBERTO (generalized anxiety disorder) (Acute) Past Medical History Medical History Basal cell carcinoma H/O hidradenitis suppurativa History of fracture of left ankle Family History Family history of problems with anesthesia: No Surgical History History of Problems with Anesthesia: No Social History Social History Household Members: None Household Members Other:: N/A Housing: Condominium Do you presently have visiting nurse or other home services: No Unable to assess alcohol history related to: Unable to respond Patient Tobacco Use Status: Current everyday Tobacco user Tobacco use type: Cigarette Cigarette Packs Per Day: 0.25 Cigarettes Per Day: 5.0 Smoked in Last 30 Days: Yes e-Cigarette/Vaping Use: Currently Using Patient Interested in Nicotine Replacement: Yes Patient Given Instructions on How to Stop Smoking: No Use of substances other than those prescribed or required for medical reasons: Yes Substance Use Type: Marijuana and Caffiene Substance Use Frequency: Occasionally Last Used Substance Other:: July 2021 Currently Displaying Signs/Symptoms of Drug Intoxication Withdrawal: No Any prior treatment program specific to substance use: Yes ([facility]) Have you been hit, kicked, punched, or otherwise hurt by someone within the past year? If so, by whom?: No Do you feel safe in your current relationship?: No Is there a partner from a previous relationship who is making you feel unsafe now?: No Are you made to feel afraid or neglected: No Advance Directives: No Advance Directives Information Provided: No Guardian: No Do you have thoughts of harming others: None Do you have a plan to hurt others: No Plan Recently lost weight without trying: No Nutrition Risks: No Nutritional Risk Patient : No : No Poor oral hygiene: No service: No Sexual orientation: Straight/Heterosexual Meds Allergies Allergy/AdvReac Type Severity Reaction Status Date / Time No Known Allergies Allergy Mild NOT Verified 12/10/21 13:07 APPLICABLE Active Medications: Current Medications Acetaminophen (Acetaminophen 325 Mg Tablet) 650 mg PO Q6H PRN PRN Reason: Headache/Pain Mild Scale (1-3) Acetaminophen (Acetaminophen 325 Mg Tablet) 650 mg PO ONCE PRN PRN Reason: Pain, Mild (Pain Scale 1-3) Al Hydroxide/Mg Hydroxide (Magnesium Hydrox/Alum Hydrox 30 Ml Oral.Susp) 30 ml PO Q6H PRN PRN Reason: Heartburn/Nausea Bupropion HCl (Bupropion Hcl Xl 300 Mg Tab.Er.24h) 300 mg PO DAILY [facility] Last Admin: 02/23/22 08:39 Dose: 300 mg Documented by: Hydroxyzine HCl (Hydroxyzine Hcl 25 Mg Tablet) 25 mg PO BEDTIME PRN PRN Reason: Anxiety Last Admin: 02/21/22 20:47 Dose: 25 mg Documented by: Magnesium Hydroxide (Milk Of Magnesia 30 Ml Oral.Susp) 30 ml PO DAILY PRN PRN Reason: Constipation Nicotine Polacrilex (Nicotine Polacrilex 2 Mg Gum) 2 mg BUCCAL Q2H PRN PRN Reason: Nicotine Cravings Last Admin: 02/22/22 15:30 Dose: 2 mg Documented by: Ondansetron HCl (Ondansetron Hcl 4 Mg/2 Ml Vial) 4 mg IVPUSH ONCE PRN PRN Reason: Nausea and Vomiting Quetiapine Fumarate (Quetiapine Fumarate 100 Mg Tablet) 100 mg PO BEDTIME PRN PRN Reason: insomnia Last Admin: 02/23/22 21:20 Dose: 100 mg Documented by: Quetiapine Fumarate (Quetiapine Fumarate 25 Mg Tablet) 25 mg PO MoWeFr@0530 [facility] Last Admin: 02/24/22 05:31 Dose: 25 mg Documented by: Sertraline HCl (Sertraline Hcl 100 Mg Tablet) 100 mg PO DAILY [facility] Last Admin: 02/23/22 08:39 Dose: 100 mg Documented by: Trazodone HCl (Trazodone Hcl 50 Mg Tablet) 50 mg PO BEDTIME PRN PRN Reason: Insomnia Last Admin: 02/23/22 21:20 Dose: 50 mg Documented by: Home Medications Medication Instructions Recorded Confirmed Last Taken Type bupropion HCl 150 mg 24 hr tablet, 300 mg PO QAM 02/18/22 02/18/22 Unknown History extended release quetiapine 100 mg tablet 1 - 3 tab PO BEDTIME PRN 02/18/22 02/18/22 Unknown History sertraline 100 mg tablet 100 mg PO QAM 02/18/22 02/18/22 Unknown History Exam Exam Date and Time: February 24, 2022 1424 Height,Weight and Vital Signs: Height 5 ft 5 in Weight 88.8 kg Last Vital Signs Temp 97.2 F 02/24/22 06:05 Pulse 86 02/24/22 06:05 Resp 18 02/24/22 06:05 BP 115/61 02/24/22 06:05 Pulse Ox 98 02/24/22 06:05 Pertinent Lab Results Pertinent Lab Results: Laboratory Tests 02/18/22 02/18/22 02/18/22 18:23 18:23 18:23 WBC 19.1 H RBC 4.54 Hgb 13.3 Hct 43.8 MCV 96.5 MCH 29.3 MCHC 30.4 L RDW 12.8 Plt Count 385 MPV 9.5 Immature Gran % (Auto) 0.8 H Neut % (Auto) 71.9 Lymph % (Auto) 18.2 L [place] % (Auto) 6.2 Eos % (Auto) 2.4 Baso % (Auto) 0.5 Lymph # (Auto) 3.5 [place] # (Auto) 1.2 Eos # (Auto) 0.5 H Baso # (Auto) 0.1 Abs Immat Gran (auto) 0.16 H Absolute Neuts (auto) 13.8 H Absolute Nucleated RBC 0.000 Nucleated RBC % (auto) 0.0 Sodium 137 Potassium 4.4 Chloride 104 Carbon Dioxide 20 L Anion Gap 17 BUN 10 Creatinine 0.85 Estim Creat Clear Calc 87.0 Estimated GFR > 60 Random Glucose 102 Estimat Average Glucose Hemoglobin A1c % Lactic Acid Calcium 10.2 Magnesium 2.2 Total Bilirubin 0.4 AST 24 ALT 34 H Alkaline Phosphatase 82 Total Protein 7.4 Albumin 4.3 Triglycerides Cholesterol LDL Cholesterol, Calc HDL Cholesterol Vitamin B12 Folate TSH Free T4 Urine Color Urine Appearance Urine pH Ur Specific [place] Urine Protein Urine Glucose (UA) Urine Ketones Urine Blood Urine Nitrite Ur Leukocyte Esterase Urine RBC Urine WBC Ur Squamous Epith Cells Urine Bacteria Urine Opiates Screen Urine Fentanyl Screen Ur Barbiturates Screen Ur Phencyclidine Scrn Ur Amphetamines Screen U Benzodiazepines Scrn Urine Cocaine Screen U Marijuana (THC) Screen Ethyl Alcohol < 10 COVID-19 ([facility]) COVID-19 Clin Com 02/18/22 02/18/22 02/18/22 18:56 20:04 20:04 WBC RBC Hgb Hct MCV MCH MCHC RDW Plt Count MPV Immature Gran % (Auto) Neut % (Auto) Lymph % (Auto) [place] % (Auto) Eos % (Auto) Baso % (Auto) Lymph # (Auto) [place] # (Auto) Eos # (Auto) Baso # (Auto) Abs Immat Gran (auto) Absolute Neuts (auto) Absolute Nucleated RBC Nucleated RBC % (auto) Sodium Potassium Chloride Carbon Dioxide Anion Gap BUN Creatinine Estim Creat Clear Calc Estimated GFR Random Glucose Estimat Average Glucose Hemoglobin A1c % Lactic Acid Calcium Magnesium Total Bilirubin AST ALT Alkaline Phosphatase Total Protein Albumin Triglycerides Cholesterol LDL Cholesterol, Calc HDL Cholesterol Vitamin B12 Folate TSH Free T4 Urine Color YELLOW Urine Appearance CLEAR Urine pH 5.5 Ur Specific [place] 1.020 Urine Protein NEG Urine Glucose (UA) NEG Urine Ketones NEG Urine Blood 2+ H Urine Nitrite NEG Ur Leukocyte Esterase NEG Urine RBC 10-14 H Urine WBC 0 Ur Squamous Epith Cells 2+ Urine Bacteria 3+ Urine Opiates Screen Not Detected Urine Fentanyl Screen Not Detected Ur Barbiturates Screen Not Detected Ur Phencyclidine Scrn Not Detected Ur Amphetamines Screen Not Detected U Benzodiazepines Scrn Not Detected Urine Cocaine Screen Not Detected U Marijuana (THC) Screen Not Detected Ethyl Alcohol COVID-19 ([facility]) Negative COVID-19 [employer] See Note 02/19/22 02/20/22 02/20/22 01:48 08:01 08:01 WBC RBC Hgb Hct MCV MCH MCHC RDW Plt Count MPV Immature Gran % (Auto) Neut % (Auto) Lymph % (Auto) [place] % (Auto) Eos % (Auto) Baso % (Auto) Lymph # (Auto) [place] # (Auto) Eos # (Auto) Baso # (Auto) Abs Immat Gran (auto) Absolute Neuts (auto) Absolute Nucleated RBC Nucleated RBC % (auto) Sodium Potassium Chloride Carbon Dioxide Anion Gap BUN Creatinine Estim Creat Clear Calc Estimated GFR Random Glucose Estimat Average Glucose 105 Hemoglobin A1c % 5.3 Lactic Acid 0.9 Calcium Magnesium 2.3 Total Bilirubin AST ALT Alkaline Phosphatase Total Protein Albumin Triglycerides 151 Cholesterol 242 LDL Cholesterol, Calc 159 HDL Cholesterol 53 Vitamin B12 Folate TSH 2.34 Free T4 0.90 Urine Color Urine Appearance Urine pH Ur Specific [place] Urine Protein Urine Glucose (UA) Urine Ketones Urine Blood Urine Nitrite Ur Leukocyte Esterase Urine RBC Urine WBC Ur Squamous Epith Cells Urine Bacteria Urine Opiates Screen Urine Fentanyl Screen Ur Barbiturates Screen Ur Phencyclidine Scrn Ur Amphetamines Screen U Benzodiazepines Scrn Urine Cocaine Screen U Marijuana (THC) Screen Ethyl Alcohol COVID-19 ([facility]NA) COVID-19 [employer] Com 02/20/22 02/20/22 08:01 13:34 WBC 15.9 H RBC 4.51 Hgb 13.0 Hct 40.3 MCV 89.4 D MCH 28.8 MCHC 32.3 RDW 12.6 Plt Count 375 MPV 8.8 L Immature Gran % (Auto) 0.6 H Neut % (Auto) 72.0 Lymph % (Auto) 17.2 L [place] % (Auto) 6.1 Eos % (Auto) 3.5 Baso % (Auto) 0.6 Lymph # (Auto) 2.7 [place] # (Auto) 1.0 Eos # (Auto) 0.6 H Baso # (Auto) 0.1 Abs Immat Gran (auto) 0.10 H Absolute Neuts (auto) 11.5 H Absolute Nucleated RBC 0.000 Nucleated RBC % (auto) 0.0 Sodium Potassium Chloride Carbon Dioxide Anion Gap BUN Creatinine Estim Creat Clear Calc Estimated GFR Random Glucose Estimat Average Glucose Hemoglobin A1c % Lactic Acid Calcium Magnesium Total Bilirubin AST ALT Alkaline Phosphatase Total Protein Albumin Triglycerides Cholesterol LDL Cholesterol, Calc HDL Cholesterol Vitamin B12 415 Folate 14.2 TSH Free T4 Urine Color Urine Appearance Urine pH Ur Specific [place] Urine Protein Urine Glucose (UA) Urine Ketones Urine Blood Urine Nitrite Ur Leukocyte Esterase Urine RBC Urine WBC Ur Squamous Epith Cells Urine Bacteria Urine Opiates Screen Urine Fentanyl Screen Ur Barbiturates Screen Ur Phencyclidine Scrn Ur Amphetamines Screen U Benzodiazepines Scrn Urine Cocaine Screen U Marijuana (THC) Screen Ethyl Alcohol COVID-19 ([facility]) COVID-19 Clin Com Assessment and Plan Final Anesthetic Review Family History of Problems with Anesthesia: No History of Problems with Anesthesia: No NPO: Yes ASA Class: II Final Preanesthetic Review: Meds/Allgs Chart Reviewed, Consent Obtained/Reviewed and Anes Risks/Benef Reviewed Patient Risk: Low Procedure Risk: Intermediate Anesthetic Plan Anesthetic Plan: GA Disposition: Standard PACU
--- NOTE | 2022-02-24 14:44 | MHC.SHP ---
Pre-Procedural Eval Section A Date of Service: 02/24/22 The patient is an INPATIENT: Yes Changes since office visit: No Cold of Flu in the past 2 weeks, No New Medical Problems, No Changes in Medication and No Patient answered all questions The History & Physical has been completed within 30 days and I have reviewed it.: Yes Section B Chief Complaint: recurrent major depression Allergies: Allergies Allergy/AdvReac Type Severity Reaction Status Date / Time No Known Allergies Allergy Mild NOT Verified 12/10/21 13:07 APPLICABLE Plan I have reviewed the history and physical and performed a pertinent physical examination on my patient. No changes have occurred unless specified.
--- NOTE | 2022-02-24 14:55 | HO.ECTPROC ---
ECT Procedure Note Diagnosis/Treatment Date of Service: 02/24/22 Diagnosis: Major Depressive Disorder Previous ECT Date: 02/21/22 Current Treatment Number: 2 Treatment: Series Interval Clinical Notes: The patient was very anxious and tearful before the procedure, she was able to calm herself only wiht verbal intervention and reassurance. She stated that she felt good after the first ECT last Thursday, still depressed but hopeful of getting better pretty soon. ECT Settings Device: THYMATRON DGx Electrode Placement: Right Unilateral Program/Pulse Width: 0.25 Energy Percent: 100 Seizure Duration By EEG (in seconds): 59 By Motor Observation (in seconds): 0 Medications Administration General Anesthetic: Etomidate (12) Muscle Relaxant: Succinylcholine (100) Ancillary Medications Analgesics: Torodol - Pre ECT Anti-emetics: Zofran - Pre ECT Miscillaneous Medications: Propofol Airway Management Airway Management: Bag Mask Ventilation Treatment Recommendations No Changes Recommended: No change Pt Tolerated Procedure w/o Issue: Yes
[2022-02-24] MEDS: Sertraline HCL 100 MG TABLET PO (17:17)
--- NOTE | 2022-02-24 17:24 | PC.NURSE ---
Patient arrived back on M5 from PACU post ECT AAOX4, no c/o pain or nausea. Clarice Durán was notified of patient's return. Okayed to hold Wellbutrin 300 mg XL and Zoloft 100 mg was given.
--- NOTE | 2022-02-24 17:34 | HO.PSYCHPN ---
Subjective Subjective Date of Service: 02/24/22 Reason For Visit: recurrent major depression Subjective Notes: Conditional Voluntary Healthcare Proxy: No Guardianship: No Medical Problems Affecting Mental Status: No Interim History: Pt scheduled later in the day for ECT today. Visable in milieu. Wanting to move her ECT to out patient, however, does not have supportive transportation to assist her at this time. Concerned about prison disability application-will ask her out patient team for assistance after discharge as short term coverage ends this week she reports. Medication Compliance: Yes Side effects from medications: No Attending Groups: No Review of Systems Acute medical concerns: No Review of Systems Psychiatric: Reports abnormal sleep pattern, Reports anxiety, Reports depression, Reports difficulty concentrating, Reports hopelessness, Reports irritability, Reports anhedonia and Reports suicidal ideation (denies) Mental Status Exam Mental Status Exam Narrative: Patient Appearance:?Disheveled Patient Orientation:?Person, Place, Time and Situation Level of Consciousness:?Alert Patient Behavior:?Talkative, Good Eye Contact and Crying Mood Description:?Depressed and Anxious Affect Description:?Flat Patient Cognition Impaired:?No Ability to Follow Directions:?Good Speech Pattern:?Spontaneous Speech Memory Description:?Episodic Impaired Hallucinations:?None Thought Process:?Rumination Thought Content:?positive for Perseveration and positive for Suicidal Ideation (denies) Depressive Symptoms:?Increased Anxiety, Diff. Making Decisions, Increased Irritability, Difficulty Sleeping, Crying Spells, Loss of Int. in Activity, Feelings of Worthlessness, Hopelessness, Isolating-Friends/Family, Unhappiness, Increased Fatigue, Thoughts of /Suicide (denies), Low Self Esteem, Loss of Energy and Difficulty Concentrating Judgement:?Fair Diagnostics Vital Signs (24Hr): Vital Signs - 24 hr 02/23/22 18:59 02/24/22 06:00 02/24/22 06:05 Temperature 98.9 F 97.2 F 97.2 F Pulse Rate 87 86 86 Respiratory Rate 18 Blood Pressure 114/56 L 115/61 115/61 Pulse Oximetry 98 98 02/24/22 14:38 02/24/22 15:00 02/24/22 15:05 Temperature 99.6 F 100 F Pulse Rate 82 69 86 Respiratory Rate 18 18 18 Blood Pressure 88/62 L 130/77 113/66 Pulse Oximetry 95 97 92 02/24/22 15:10 02/24/22 15:15 02/24/22 15:30 Temperature 98.7 F Pulse Rate 94 96 93 Respiratory Rate 18 12 16 Blood Pressure 117/67 126/67 106/61 Pulse Oximetry 94 94 95 02/24/22 15:35 02/24/22 15:45 02/24/22 16:00 Temperature 99.4 F Pulse Rate 92 87 Respiratory Rate 16 14 Blood Pressure 103/58 L 113/66 Pulse Oximetry 91 L 98 94 02/24/22 16:33 Temperature 98 F Pulse Rate 88 Respiratory Rate 16 Blood Pressure 98/57 L Pulse Oximetry 97 BMI result Body Mass Index 32.5 Labs Results: 02/20/22 13:34 02/18/22 18:23 Imaging Radiology Impressions: ITS Impressions Chest X-Ray 02/18/22 22:10 IMPRESSION: Unremarkable examination. Medications Medications Current Medications Acetaminophen (Acetaminophen 325 Mg Tablet) 650 mg PO Q6H PRN PRN Reason: Headache/Pain Mild Scale (1-3) Acetaminophen (Acetaminophen 325 Mg Tablet) 650 mg PO ONCE PRN PRN Reason: Pain, Mild (Pain Scale 1-3) Acetaminophen (Acetaminophen 325 Mg Tablet) 650 mg PO ONCE PRN PRN Reason: Pain, Mild (Pain Scale 1-3) Al Hydroxide/Mg Hydroxide (Magnesium Hydrox/Alum Hydrox 30 Ml Oral.Susp) 30 ml PO Q6H PRN PRN Reason: Heartburn/Nausea Bupropion HCl (Bupropion Hcl Xl 300 Mg Tab.Er.24h) 300 mg PO DAILY [facility] Last Admin: 02/24/22 16:39 Dose: Not Given Documented by: Hydroxyzine HCl (Hydroxyzine Hcl 25 Mg Tablet) 25 mg PO BEDTIME PRN PRN Reason: Anxiety Last Admin: 02/21/22 20:47 Dose: 25 mg Documented by: Magnesium Hydroxide (Milk Of Magnesia 30 Ml Oral.Susp) 30 ml PO DAILY PRN PRN Reason: Constipation Nicotine Polacrilex (Nicotine Polacrilex 2 Mg Gum) 2 mg BUCCAL Q2H PRN PRN Reason: Nicotine Cravings Last Admin: 02/22/22 15:30 Dose: 2 mg Documented by: Ondansetron HCl (Ondansetron Hcl 4 Mg/2 Ml Vial) 4 mg IVPUSH ONCE PRN PRN Reason: Nausea and Vomiting Quetiapine Fumarate (Quetiapine Fumarate 100 Mg Tablet) 100 mg PO BEDTIME PRN PRN Reason: insomnia Last Admin: 02/23/22 21:20 Dose: 100 mg Documented by: Quetiapine Fumarate (Quetiapine Fumarate 25 Mg Tablet) 25 mg PO [id number] [facility] Last Admin: 02/24/22 05:31 Dose: 25 mg Documented by: Sertraline HCl (Sertraline Hcl 100 Mg Tablet) 100 mg PO DAILY [facility] Last Admin: 02/24/22 17:17 Dose: 100 mg Documented by: Trazodone HCl (Trazodone Hcl 50 Mg Tablet) 50 mg PO BEDTIME PRN PRN Reason: Insomnia Last Admin: 02/23/22 21:20 Dose: 50 mg Documented by: Allergies Allergies Allergy/AdvReac Type Severity Reaction Status Date / Time No Known Allergies Allergy Mild NOT Verified 12/10/21 13:07 APPLICABLE Assessment & Plan Assessment & Plan (1) MDD (major depressive disorder), recurrent severe, without psychosis: Status: Acute Code(s): F33.2 - Major depressive disorder, recurrent severe without psychotic features (2) Alcohol use disorder, moderate, in early remission: Status: Acute Code(s): F10.21 - Alcohol dependence, in remission Plan 51 yo female, history of recurrent severe major depression, currently in her sixth month of acute symptoms without relief. Episode began Sep 2021, pt was using alcohol to sleep-attended [facility] and has had no relief since with medication changes. By history ECT has been effective and she returns for consideration for this treatment. Plan: Medical Clearance, labs, EKG for ECT are completed. First treatment 02/21/22. Continue current regime. 02/21/22 ECT #1 completed. Continue current plan of care 02/22/22 No medication changes 02/23/22 no medication changes, ECT tomorrow 02/24/22- Continue current plan of care I spent minutes with the patient and/or on the patient floor today, greater than?50% of which was spent counseling/coordinating care. Patient educated on: ECT Informed Consent: understands Reason for contiued inpatient stay Substantial Risk for: inability to function and rapid decompensation
[2022-02-24] MEDS: hydrOXYzine HCL 25 MG TABLET PO (22:07)
[2022-02-24] MEDS: traZODone HCL 50 MG TABLET PO (22:07)
[2022-02-24] MEDS: QUEtiapine Fumarate 100 MG TABLET PO (22:08)
[2022-02-25 06:00] VITALS: BP 111/64; PULSE 94; RESP 18; TEMP 36.8; O2SAT 96
[2022-02-25 08:05] VITALS: BP 111/64; PULSE 94; TEMP 36.8; O2SAT 96
[2022-02-25] MEDS: buPROPion HCl XL 300 MG TAB.ER.24H PO (08:40)
[2022-02-25] MEDS: Sertraline HCL 100 MG TABLET PO (08:40)
[2022-02-25] MEDS: Milk of Magnesia 30 ML ORAL.SUSP PO (16:27)
--- NOTE | 2022-02-25 18:27 | HO.PSYCHPN ---
Subjective Subjective Date of Service: 02/25/22 Reason For Visit: recurrent major depression Interim History: Christie is having symptoms of intermittent constipation. Discussed initiating colace 100 mg bid. Reports sleep and appetite are intact-wishing she could be home for ECT, but does not have transportation assistance. Review of [facility], application for senior living disability and maintenance treatments for ECT. Medication Compliance: Yes Side effects from medications: No Attending Groups: Intermittent Review of Systems Acute medical concerns: No Medical Review of Systems: unchanged Review of Systems Psychiatric: Reports abnormal sleep pattern, Reports anxiety, Reports depression, Reports difficulty concentrating, Reports hopelessness, Reports irritability, Reports anhedonia and Reports suicidal ideation (denies) Mental Status Exam Mental Status Exam Narrative: Patient Appearance:?Disheveled Patient Orientation:?Person, Place, Time and Situation Level of Consciousness:?Alert Patient Behavior:?Talkative, Good Eye Contact and Crying Mood Description:?Depressed and Anxious Affect Description:?Flat Patient Cognition Impaired:?No Ability to Follow Directions:?Good Speech Pattern:?Spontaneous Speech Memory Description:?Episodic Impaired Hallucinations:?None Thought Process:?Rumination Thought Content:?positive for Perseveration and positive for Suicidal Ideation (denies) Depressive Symptoms:?Increased Anxiety, Diff. Making Decisions, Increased Irritability, Difficulty Sleeping, Crying Spells, Loss of Int. in Activity, Feelings of Worthlessness, Hopelessness, Isolating-Friends/Family, Unhappiness, Increased Fatigue, Thoughts of /Suicide (denies), Low Self Esteem, Loss of Energy and Difficulty Concentrating Judgement:?Fair Diagnostics Vital Signs (24Hr): Vital Signs - 24 hr 02/25/22 06:00 02/25/22 08:05 Temperature 98.2 F 98.2 F Pulse Rate 94 94 Respiratory Rate 18 Blood Pressure 111/64 111/64 Pulse Oximetry 96 96 BMI result Body Mass Index 32.5 Labs Results: 02/20/22 13:34 02/18/22 18:23 Imaging Radiology Impressions: ITS Impressions Chest X-Ray 02/18/22 22:10 IMPRESSION: Unremarkable examination. Medications Medications Current Medications Acetaminophen (Acetaminophen 325 Mg Tablet) 650 mg PO Q6H PRN PRN Reason: Headache/Pain Mild Scale (1-3) Acetaminophen (Acetaminophen 325 Mg Tablet) 650 mg PO ONCE PRN PRN Reason: Pain, Mild (Pain Scale 1-3) Acetaminophen (Acetaminophen 325 Mg Tablet) 650 mg PO ONCE PRN PRN Reason: Pain, Mild (Pain Scale 1-3) Al Hydroxide/Mg Hydroxide (Magnesium Hydrox/Alum Hydrox 30 Ml Oral.Susp) 30 ml PO Q6H PRN PRN Reason: Heartburn/Nausea Bupropion HCl (Bupropion Hcl Xl 300 Mg Tab.Er.24h) 300 mg PO DAILY [facility] Last Admin: 02/25/22 08:40 Dose: 300 mg Documented by: Hydroxyzine HCl (Hydroxyzine Hcl 25 Mg Tablet) 25 mg PO BEDTIME PRN PRN Reason: Anxiety Last Admin: 02/24/22 22:07 Dose: 25 mg Documented by: Magnesium Hydroxide (Milk Of Magnesia 30 Ml Oral.Susp) 30 ml PO DAILY PRN PRN Reason: Constipation Last Admin: 02/25/22 16:27 Dose: 30 ml Documented by: Nicotine Polacrilex (Nicotine Polacrilex 2 Mg Gum) 2 mg BUCCAL Q2H PRN PRN Reason: Nicotine Cravings Last Admin: 02/22/22 15:30 Dose: 2 mg Documented by: Ondansetron HCl (Ondansetron Hcl 4 Mg/2 Ml Vial) 4 mg IVPUSH ONCE PRN PRN Reason: Nausea and Vomiting Quetiapine Fumarate (Quetiapine Fumarate 100 Mg Tablet) 100 mg PO BEDTIME PRN PRN Reason: insomnia Last Admin: 02/24/22 22:08 Dose: 100 mg Documented by: Quetiapine Fumarate (Quetiapine Fumarate 25 Mg Tablet) 25 mg PO MoWeFr@[id number] [facility] Last Admin: 02/24/22 05:31 Dose: 25 mg Documented by: Sertraline HCl (Sertraline Hcl 100 Mg Tablet) 100 mg PO DAILY [facility] Last Admin: 02/25/22 08:40 Dose: 100 mg Documented by: Trazodone HCl (Trazodone Hcl 50 Mg Tablet) 50 mg PO BEDTIME PRN PRN Reason: Insomnia Last Admin: 02/24/22 22:07 Dose: 50 mg Documented by: Allergies Allergies Allergy/AdvReac Type Severity Reaction Status Date / Time No Known Allergies Allergy Mild NOT Verified 12/10/21 13:07 APPLICABLE Assessment & Plan Assessment & Plan (1) MDD (major depressive disorder), recurrent severe, without psychosis: Status: Acute Code(s): F33.2 - Major depressive disorder, recurrent severe without psychotic features (2) Alcohol use disorder, moderate, in early remission: Status: Acute Code(s): F10.21 - Alcohol dependence, in remission Plan 51 yo female, history of recurrent severe major depression, currently in her sixth month of acute symptoms without relief. Episode began Sep 2021, pt was using alcohol to sleep-attended [facility] and has had no relief since with medication changes. By history ECT has been effective and she returns for consideration for this treatment. Plan: Medical Clearance, labs, EKG for ECT are completed. First treatment 02/21/22. Continue current regime. 02/21/22 ECT #1 completed. Continue current plan of care 02/22/22 No medication changes 02/23/22 no medication changes, ECT tomorrow 02/24/22- Continue current plan of care 02/25/22- Continue current plan I spent minutes with the patient and/or on the patient floor today, greater than?50% of which was spent counseling/coordinating care. Patient educated on: medication risk/benefits and therapeutic strategies Informed Consent: understands and further education needed Reason for contiued inpatient stay Substantial Risk for: inability to function and rapid decompensation
[2022-02-25 19:25] VITALS: BP 118/56; PULSE 87; TEMP 36.9
[2022-02-25] MEDS: Docusate Sodium 100 MG CAPSULE PO (21:14)
[2022-02-25] MEDS: QUEtiapine Fumarate 100 MG TABLET PO (21:15)
[2022-02-25] MEDS: traZODone HCL 50 MG TABLET PO (21:16)
[2022-02-26] VITALS (11 sets, daily range): BP systolic 101–134; BP diastolic 56–73; PULSE 81–92; RESP 14–18; TEMP 36.4–36.9; O2SAT 92–98
[2022-02-26] MEDS: QUEtiapine Fumarate 25 MG TABLET PO (05:31)
--- NOTE | 2022-02-26 06:58 | P.CONAN_ITS ---
[facility] Active Problems Active Problems: All Active Problems (Updated 02/20/22 @ 16:22 by Mojgan Mena MD) Pre-op evaluation (Acute) Leukocytosis (Acute) Alcohol use disorder, moderate, in early remission (Acute) MDD (major depressive disorder), recurrent severe, without psychosis (Acute) HUMBERTO (generalized anxiety disorder) (Acute) Past Medical History Medical History Basal cell carcinoma H/O hidradenitis suppurativa History of fracture of left ankle Family History Family history of problems with anesthesia: No Surgical History History of Problems with Anesthesia: No Social History Social History Household Members: None Household Members Other:: N/A Housing: Condominium Do you presently have visiting nurse or other home services: No Unable to assess alcohol history related to: Unable to respond Patient Tobacco Use Status: Current everyday Tobacco user Tobacco use type: Cigarette Cigarette Packs Per Day: 0.25 Cigarettes Per Day: 5.0 Smoked in Last 30 Days: Yes e-Cigarette/Vaping Use: Currently Using Patient Interested in Nicotine Replacement: Yes Patient Given Instructions on How to Stop Smoking: No Use of substances other than those prescribed or required for medical reasons: Yes Substance Use Type: Marijuana and Caffiene Substance Use Frequency: Occasionally Last Used Substance Other:: July 2021 Currently Displaying Signs/Symptoms of Drug Intoxication Withdrawal: No Any prior treatment program specific to substance use: Yes ([facility]) Have you been hit, kicked, punched, or otherwise hurt by someone within the past year? If so, by whom?: No Do you feel safe in your current relationship?: No Is there a partner from a previous relationship who is making you feel unsafe now?: No Are you made to feel afraid or neglected: No Advance Directives: No Advance Directives Information Provided: No Guardian: No Do you have thoughts of harming others: None Do you have a plan to hurt others: No Plan Recently lost weight without trying: No Nutrition Risks: No Nutritional Risk Patient : No : No Poor oral hygiene: No service: No Sexual orientation: Straight/Heterosexual Meds Allergies Allergy/AdvReac Type Severity Reaction Status Date / Time No Known Allergies Allergy Mild NOT Verified 12/10/21 13:07 APPLICABLE Active Medications: Current Medications Acetaminophen (Acetaminophen 325 Mg Tablet) 650 mg PO Q6H PRN PRN Reason: Headache/Pain Mild Scale (1-3) Acetaminophen (Acetaminophen 325 Mg Tablet) 650 mg PO ONCE PRN PRN Reason: Pain, Mild (Pain Scale 1-3) Acetaminophen (Acetaminophen 325 Mg Tablet) 650 mg PO ONCE PRN PRN Reason: Pain, Mild (Pain Scale 1-3) Al Hydroxide/Mg Hydroxide (Magnesium Hydrox/Alum Hydrox 30 Ml Oral.Susp) 30 ml PO Q6H PRN PRN Reason: Heartburn/Nausea Bupropion HCl (Bupropion Hcl Xl 300 Mg Tab.Er.24h) 300 mg PO DAILY [facility] Last Admin: 02/25/22 08:40 Dose: 300 mg Documented by: Docusate Sodium (Docusate Sodium 100 Mg Capsule) 100 mg PO BID [facility] Last Admin: 02/25/22 21:14 Dose: 100 mg Documented by: Hydroxyzine HCl (Hydroxyzine Hcl 25 Mg Tablet) 25 mg PO BEDTIME PRN PRN Reason: Anxiety Last Admin: 02/24/22 22:07 Dose: 25 mg Documented by: Lactated Ringer's (Lr) 1,000 mls @ 50 mls/hr IVCONT .Q20H [facility] Magnesium Hydroxide (Milk Of Magnesia 30 Ml Oral.Susp) 30 ml PO DAILY PRN PRN Reason: Constipation Last Admin: 02/25/22 16:27 Dose: 30 ml Documented by: Nicotine Polacrilex (Nicotine Polacrilex 2 Mg Gum) 2 mg BUCCAL Q2H PRN PRN Reason: Nicotine Cravings Last Admin: 02/22/22 15:30 Dose: 2 mg Documented by: Ondansetron HCl (Ondansetron Hcl 4 Mg/2 Ml Vial) 4 mg IVPUSH ONCE PRN PRN Reason: Nausea and Vomiting Quetiapine Fumarate (Quetiapine Fumarate 100 Mg Tablet) 100 mg PO BEDTIME PRN PRN Reason: insomnia Last Admin: 02/25/22 21:15 Dose: 100 mg Documented by: Quetiapine Fumarate (Quetiapine Fumarate 25 Mg Tablet) 25 mg PO MoWeFr@0530 [facility] Last Admin: 02/26/22 05:31 Dose: 25 mg Documented by: Sertraline HCl (Sertraline Hcl 100 Mg Tablet) 100 mg PO DAILY [facility] Last Admin: 02/25/22 08:40 Dose: 100 mg Documented by: Trazodone HCl (Trazodone Hcl 50 Mg Tablet) 50 mg PO BEDTIME PRN PRN Reason: Insomnia Last Admin: 02/25/22 21:16 Dose: 50 mg Documented by: Home Medications Medication Instructions Recorded Confirmed Last Taken Type bupropion HCl 150 mg 24 hr tablet, 300 mg PO QAM 02/18/22 02/18/22 Unknown History extended release quetiapine 100 mg tablet 1 - 3 tab PO BEDTIME PRN 02/18/22 02/18/22 Unknown History sertraline 100 mg tablet 100 mg PO QAM 02/18/22 02/18/22 Unknown History Exam Exam Date and Time: February 26, 2022 0658 Height,Weight and Vital Signs: Height 5 ft 5 in Weight 88.8 kg Last Vital Signs Temp 97.6 F 02/26/22 06:51 Pulse 91 02/26/22 06:51 Resp 14 02/26/22 06:51 BP 108/62 02/26/22 06:51 Pulse Ox 98 02/26/22 06:51 Pertinent Lab Results Pertinent Lab Results: Laboratory Tests 02/18/22 02/18/22 02/18/22 18:23 18:23 18:23 WBC 19.1 H RBC 4.54 Hgb 13.3 Hct 43.8 MCV 96.5 MCH 29.3 MCHC 30.4 L RDW 12.8 Plt Count 385 MPV 9.5 Immature Gran % (Auto) 0.8 H Neut % (Auto) 71.9 Lymph % (Auto) 18.2 L [place] % (Auto) 6.2 Eos % (Auto) 2.4 Baso % (Auto) 0.5 Lymph # (Auto) 3.5 [place] # (Auto) 1.2 Eos # (Auto) 0.5 H Baso # (Auto) 0.1 Abs Immat Gran (auto) 0.16 H Absolute Neuts (auto) 13.8 H Absolute Nucleated RBC 0.000 Nucleated RBC % (auto) 0.0 Sodium 137 Potassium 4.4 Chloride 104 Carbon Dioxide 20 L Anion Gap 17 BUN 10 Creatinine 0.85 Estim Creat Clear Calc 87.0 Estimated GFR > 60 Random Glucose 102 Estimat Average Glucose Hemoglobin A1c % Lactic Acid Calcium 10.2 Magnesium 2.2 Total Bilirubin 0.4 AST 24 ALT 34 H Alkaline Phosphatase 82 Total Protein 7.4 Albumin 4.3 Triglycerides Cholesterol LDL Cholesterol, Calc HDL Cholesterol Vitamin B12 Folate TSH Free T4 Urine Color Urine Appearance Urine pH Ur Specific [place] Urine Protein Urine Glucose (UA) Urine Ketones Urine Blood Urine Nitrite Ur Leukocyte Esterase Urine RBC Urine WBC Ur Squamous Epith Cells Urine Bacteria Urine Opiates Screen Urine Fentanyl Screen Ur Barbiturates Screen Ur Phencyclidine Scrn Ur Amphetamines Screen U Benzodiazepines Scrn Urine Cocaine Screen U Marijuana (THC) Screen Ethyl Alcohol < 10 COVID-19 ([facility]ILIANA) COVID-19 XGraph 02/18/22 02/18/22 02/18/22 18:56 20:04 20:04 WBC RBC Hgb Hct MCV MCH MCHC RDW Plt Count MPV Immature Gran % (Auto) Neut % (Auto) Lymph % (Auto) [place] % (Auto) Eos % (Auto) Baso % (Auto) Lymph # (Auto) [place] # (Auto) Eos # (Auto) Baso # (Auto) Abs Immat Gran (auto) Absolute Neuts (auto) Absolute Nucleated RBC Nucleated RBC % (auto) Sodium Potassium Chloride Carbon Dioxide Anion Gap BUN Creatinine Estim Creat Clear Calc Estimated GFR Random Glucose Estimat Average Glucose Hemoglobin A1c % Lactic Acid Calcium Magnesium Total Bilirubin AST ALT Alkaline Phosphatase Total Protein Albumin Triglycerides Cholesterol LDL Cholesterol, Calc HDL Cholesterol Vitamin B12 Folate TSH Free T4 Urine Color YELLOW Urine Appearance CLEAR Urine pH 5.5 Ur Specific [place] 1.020 Urine Protein NEG Urine Glucose (UA) NEG Urine Ketones NEG Urine Blood 2+ H Urine Nitrite NEG Ur Leukocyte Esterase NEG Urine RBC 10-14 H Urine WBC 0 Ur Squamous Epith Cells 2+ Urine Bacteria 3+ Urine Opiates Screen Not Detected Urine Fentanyl Screen Not Detected Ur Barbiturates Screen Not Detected Ur Phencyclidine Scrn Not Detected Ur Amphetamines Screen Not Detected U Benzodiazepines Scrn Not Detected Urine Cocaine Screen Not Detected U Marijuana (THC) Screen Not Detected Ethyl Alcohol COVID-19 ([facility]ILIANA) Negative COVID-19 Navent Com See Note 02/19/22 02/20/22 02/20/22 01:48 08:01 08:01 WBC RBC Hgb Hct MCV MCH MCHC RDW Plt Count MPV Immature Gran % (Auto) Neut % (Auto) Lymph % (Auto) [place] % (Auto) Eos % (Auto) Baso % (Auto) Lymph # (Auto) [place] # (Auto) Eos # (Auto) Baso # (Auto) Abs Immat Gran (auto) Absolute Neuts (auto) Absolute Nucleated RBC Nucleated RBC % (auto) Sodium Potassium Chloride Carbon Dioxide Anion Gap BUN Creatinine Estim Creat Clear Calc Estimated GFR Random Glucose Estimat Average Glucose 105 Hemoglobin A1c % 5.3 Lactic Acid 0.9 Calcium Magnesium 2.3 Total Bilirubin AST ALT Alkaline Phosphatase Total Protein Albumin Triglycerides 151 Cholesterol 242 LDL Cholesterol, Calc 159 HDL Cholesterol 53 Vitamin B12 Folate TSH 2.34 Free T4 0.90 Urine Color Urine Appearance Urine pH Ur Specific [place] Urine Protein Urine Glucose (UA) Urine Ketones Urine Blood Urine Nitrite Ur Leukocyte Esterase Urine RBC Urine WBC Ur Squamous Epith Cells Urine Bacteria Urine Opiates Screen Urine Fentanyl Screen Ur Barbiturates Screen Ur Phencyclidine Scrn Ur Amphetamines Screen U Benzodiazepines Scrn Urine Cocaine Screen U Marijuana (THC) Screen Ethyl Alcohol COVID-19 ([facility]ILIANA) COVID-19 Navent Com 02/20/22 02/20/22 08:01 13:34 WBC 15.9 H RBC 4.51 Hgb 13.0 Hct 40.3 MCV 89.4 D MCH 28.8 MCHC 32.3 RDW 12.6 Plt Count 375 MPV 8.8 L Immature Gran % (Auto) 0.6 H Neut % (Auto) 72.0 Lymph % (Auto) 17.2 L [place] % (Auto) 6.1 Eos % (Auto) 3.5 Baso % (Auto) 0.6 Lymph # (Auto) 2.7 [place] # (Auto) 1.0 Eos # (Auto) 0.6 H Baso # (Auto) 0.1 Abs Immat Gran (auto) 0.10 H Absolute Neuts (auto) 11.5 H Absolute Nucleated RBC 0.000 Nucleated RBC % (auto) 0.0 Sodium Potassium Chloride Carbon Dioxide Anion Gap BUN Creatinine Estim Creat Clear Calc Estimated GFR Random Glucose Estimat Average Glucose Hemoglobin A1c % Lactic Acid Calcium Magnesium Total Bilirubin AST ALT Alkaline Phosphatase Total Protein Albumin Triglycerides Cholesterol LDL Cholesterol, Calc HDL Cholesterol Vitamin B12 415 Folate 14.2 TSH Free T4 Urine Color Urine Appearance Urine pH Ur Specific [place] Urine Protein Urine Glucose (UA) Urine Ketones Urine Blood Urine Nitrite Ur Leukocyte Esterase Urine RBC Urine WBC Ur Squamous Epith Cells Urine Bacteria Urine Opiates Screen Urine Fentanyl Screen Ur Barbiturates Screen Ur Phencyclidine Scrn Ur Amphetamines Screen U Benzodiazepines Scrn Urine Cocaine Screen U Marijuana (THC) Screen Ethyl Alcohol COVID-19 (LILIANA) COVID-19 Clin Com Airway Mallampati Class: II (Root canal bottom right) TM Dist: >3cm Neck ROM: Full Heart: rrr Lungs: cta Assessment and Plan Assessment Anesthesia Assessment: Anesthesia Plan Discussed and Chart Reviewed Final Anesthetic Review Family History of Problems with Anesthesia: No History of Problems with Anesthesia: No NPO: Yes ASA Class: III Final Preanesthetic Review: No Changes in Pt Med Stat, Meds/Allgs Chart Reviewed and Consent Obtained/Reviewed Patient Risk: Intermediate Procedure Risk: Intermediate Anesthetic Plan Anesthetic Plan: GA Disposition: Standard PACU
--- NOTE | 2022-02-26 07:45 | MHC.SHP ---
Pre-Procedural Eval Section A Date of Service: 02/26/22 The patient is an INPATIENT: Yes Changes since office visit: Yes Patient answered all questions; No Cold of Flu in the past 2 weeks, No New Medical Problems and No Changes in Medication The History & Physical has been completed within 30 days and I have reviewed it.: Yes Section B Chief Complaint: recurrent major depression Allergies: Allergies Allergy/AdvReac Type Severity Reaction Status Date / Time No Known Allergies Allergy Mild NOT Verified 12/10/21 13:07 APPLICABLE Plan I have reviewed the history and physical and performed a pertinent physical examination on my patient. No changes have occurred unless specified.
--- NOTE | 2022-02-26 08:01 | HO.ECTPROC ---
ECT Procedure Note Diagnosis/Treatment Date of Service: 02/26/22 Diagnosis: Major Depressive Disorder Previous ECT Date: 02/24/22 Current Treatment Number: 3 Treatment: Series Interval Clinical Notes: pt with ? some improvement ECT Settings Device: THYMATRON DGx Electrode Placement: Right Unilateral Program/Pulse Width: 0.25 Energy Percent: 100 Seizure Duration By EEG (in seconds): 37 Medications Administration General Anesthetic: Etomidate (12) Muscle Relaxant: Succinylcholine (100) Ancillary Medications Analgesics: Torodol - Pre ECT Anti-emetics: Zofran - Pre ECT Cardiovascular Medications: Labetolol (30) Airway Management Airway Management: Bag Mask Ventilation Treatment Recommendations No Changes Recommended: No change Pt Tolerated Procedure w/o Issue: Yes
[2022-02-26] MEDS: Docusate Sodium 100 MG CAPSULE PO ×2 (09:33→20:54)
[2022-02-26] MEDS: buPROPion HCl XL 300 MG TAB.ER.24H PO (09:34)
[2022-02-26] MEDS: Sertraline HCL 100 MG TABLET PO (09:34)
--- NOTE | 2022-02-26 17:46 | P.PNPSI_ITS ---
Subjective Subjective Date of Service: 02/26/22 Reason For Visit: recurrent major depression Medical Problems Affecting Mental Status: No Interim History: Reports sleep is improved. ECT without SE pt reports-involved in milieu, reading a book she has wanted to read for a while with good retention which she said- that feels really good . Remains tearful at times when talking, but reports some improvement overall. Discussed feeling guilty about taking up space . Some people here are really sick and I hope that I am not keeping someone from getting help by being here. Medication Compliance: Yes Side effects from medications: No Attending Groups: Intermittent Review of Systems Acute medical concerns: No Medical Review of Systems: unchanged Review of Systems Psychiatric: Reports abnormal sleep pattern, Reports anxiety, Reports depression, Reports difficulty concentrating, Reports hopelessness, Reports irritability, Reports anhedonia and Reports suicidal ideation (denies) Mental Status Exam Mental Status Exam Narrative: Patient Appearance:?Disheveled Patient Orientation:?Person, Place, Time and Situation Level of Consciousness:?Alert Patient Behavior:?Talkative, Good Eye Contact and Crying Mood Description:?Depressed and Anxious Affect Description:?Flat Patient Cognition Impaired:?No Ability to Follow Directions:?Good Speech Pattern:?Spontaneous Speech Memory Description:?Episodic Impaired Hallucinations:?None Thought Process:?Rumination Thought Content:?positive for Perseveration and positive for Suicidal Ideation (denies) Depressive Symptoms:?Increased Anxiety, Diff. Making Decisions, Increased Irritability, Difficulty Sleeping, Crying Spells, Loss of Int. in Activity, Feelings of Worthlessness, Hopelessness, Isolating-Friends/Family, Unhappiness, Increased Fatigue, Thoughts of /Suicide (denies), Low Self Esteem, Loss of Energy and Difficulty Concentrating Judgement:?Fair Diagnostics Vital Signs (24Hr): Vital Signs - 24 hr 02/25/22 19:25 02/26/22 06:00 02/26/22 06:18 Temperature 98.4 F 97.8 F 97.8 F Pulse Rate 87 86 86 Respiratory Rate 17 17 Blood Pressure 118/56 L 106/62 106/62 Pulse Oximetry 95 95 02/26/22 06:51 02/26/22 08:11 02/26/22 08:16 Temperature 97.6 F 98.4 F Pulse Rate 91 82 88 Respiratory Rate 14 17 18 Blood Pressure 108/62 134/73 118/73 Pulse Oximetry 98 92 92 02/26/22 08:21 02/26/22 08:26 02/26/22 08:41 Temperature Pulse Rate 92 87 92 Respiratory Rate 15 15 17 Blood Pressure 120/72 115/70 106/62 Pulse Oximetry 92 93 96 02/26/22 08:56 02/26/22 09:36 Temperature 98.4 F 98.2 F Pulse Rate 85 86 Respiratory Rate 16 16 Blood Pressure 101/63 118/56 L Pulse Oximetry 95 BMI result Body Mass Index 32.5 Labs Results: 02/20/22 13:34 02/18/22 18:23 Imaging Radiology Impressions: ITS Impressions Chest X-Ray 02/18/22 22:10 IMPRESSION: Unremarkable examination. Medications Medications Current Medications Acetaminophen (Acetaminophen 325 Mg Tablet) 650 mg PO Q6H PRN PRN Reason: Headache/Pain Mild Scale (1-3) Acetaminophen (Acetaminophen 325 Mg Tablet) 650 mg PO ONCE PRN PRN Reason: Pain, Mild (Pain Scale 1-3) Al Hydroxide/Mg Hydroxide (Magnesium Hydrox/Alum Hydrox 30 Ml Oral.Susp) 30 ml PO Q6H PRN PRN Reason: Heartburn/Nausea Bupropion HCl (Bupropion Hcl Xl 300 Mg Tab.Er.24h) 300 mg PO DAILY [facility] Last Admin: 02/26/22 09:34 Dose: 300 mg Documented by: Docusate Sodium (Docusate Sodium 100 Mg Capsule) 100 mg PO BID [facility] Last Admin: 02/26/22 09:33 Dose: 100 mg Documented by: Hydroxyzine HCl (Hydroxyzine Hcl 25 Mg Tablet) 25 mg PO BEDTIME PRN PRN Reason: Anxiety Last Admin: 02/24/22 22:07 Dose: 25 mg Documented by: Magnesium Hydroxide (Milk Of Magnesia 30 Ml Oral.Susp) 30 ml PO DAILY PRN PRN Reason: Constipation Last Admin: 02/25/22 16:27 Dose: 30 ml Documented by: Nicotine Polacrilex (Nicotine Polacrilex 2 Mg Gum) 2 mg BUCCAL Q2H PRN PRN Reason: Nicotine Cravings Last Admin: 02/22/22 15:30 Dose: 2 mg Documented by: Ondansetron HCl (Ondansetron Hcl 4 Mg/2 Ml Vial) 4 mg IVPUSH ONCE PRN PRN Reason: Nausea and Vomiting Quetiapine Fumarate (Quetiapine Fumarate 100 Mg Tablet) 100 mg PO BEDTIME PRN PRN Reason: insomnia Last Admin: 02/25/22 21:15 Dose: 100 mg Documented by: Quetiapine Fumarate (Quetiapine Fumarate 25 Mg Tablet) 25 mg PO MoWeFr@0530 [facility] Last Admin: 02/26/22 05:31 Dose: 25 mg Documented by: Sertraline HCl (Sertraline Hcl 100 Mg Tablet) 100 mg PO DAILY [facility] Last Admin: 02/26/22 09:34 Dose: 100 mg Documented by: Trazodone HCl (Trazodone Hcl 50 Mg Tablet) 50 mg PO BEDTIME PRN PRN Reason: Insomnia Last Admin: 02/25/22 21:16 Dose: 50 mg Documented by: Allergies Allergies Allergy/AdvReac Type Severity Reaction Status Date / Time No Known Allergies Allergy Mild NOT Verified 12/10/21 13:07 APPLICABLE Assessment & Plan Assessment & Plan (1) MDD (major depressive disorder), recurrent severe, without psychosis: Status: Acute Code(s): F33.2 - Major depressive disorder, recurrent severe without psychotic features (2) Alcohol use disorder, moderate, in early remission: Status: Acute Code(s): F10.21 - Alcohol dependence, in remission Plan 51 yo female, history of recurrent severe major depression, currently in her sixth month of acute symptoms without relief. Episode began Sep 2021, pt was using alcohol to sleep-attended [facility] and has had no relief since with med ication changes. By history ECT has been effective and she returns for consideration for this treatment. Plan: Medical Clearance, labs, EKG for ECT are completed. First treatment 02/21/22. Continue current regime. 02/21/22 ECT #1 completed. Continue current plan of care 02/22/22 No medication changes 02/23/22 no medication changes, ECT tomorrow 02/24/22- Continue current plan of care 02/26/22- Continue current plan of care. I spent minutes with the patient and/or on the patient floor today, greater than?50% of which was spent counseling/coordinating care. Patient educated on: other Informed Consent: understands Reason for contiued inpatient stay Substantial Risk for: inability to function and rapid decompensation
[2022-02-26] MEDS: traZODone HCL 50 MG TABLET PO (20:54)
[2022-02-26] MEDS: QUEtiapine Fumarate 100 MG TABLET PO (20:54)
[2022-02-27 06:45] VITALS: BP 92/59; PULSE 75; RESP 17; TEMP 36.1; O2SAT 95
[2022-02-27] MEDS: Sertraline HCL 100 MG TABLET PO (09:38)
[2022-02-27] MEDS: buPROPion HCl XL 300 MG TAB.ER.24H PO (09:38)
[2022-02-27] MEDS: Docusate Sodium 100 MG CAPSULE PO ×2 (09:38→20:17)
--- NOTE | 2022-02-27 16:47 | HO.PSYCHPN ---
Subjective Subjective Date of Service: 02/27/22 Reason For Visit: recurrent major depression Interim History: Reports some relief with ECT. Able to read a book today with improved concentration Next treatment 02/28. She discussed not having resources to provide a ride so out patient treatments would be an option. Work is on her mind. As her short term benefits end this week, she is looking to apply for longer term disability, but does have intereste in [facility] for training to return to work when symptoms are improved. Medication Compliance: Yes Side effects from medications: No Attending Groups: Yes Review of Systems Acute medical concerns: No Medical Review of Systems: unchanged Review of Systems Psychiatric: Reports abnormal sleep pattern, Reports anxiety, Reports depression, Reports difficulty concentrating, Reports hopelessness, Reports irritability, Reports anhedonia and Reports suicidal ideation (denies) Mental Status Exam Mental Status Exam Narrative: Patient Appearance:?Disheveled Patient Orientation:?Person, Place, Time and Situation Level of Consciousness:?Alert Patient Behavior:?Talkative, Good Eye Contact and Crying Mood Description:?Depressed and Anxious Affect Description:?Flat Patient Cognition Impaired:?No Ability to Follow Directions:?Good Speech Pattern:?Spontaneous Speech Memory Description:?Episodic Impaired Hallucinations:?None Thought Process:?Rumination Thought Content:?positive for Perseveration and positive for Suicidal Ideation (denies) Depressive Symptoms:?Increased Anxiety, Diff. Making Decisions, Increased Irritability, Difficulty Sleeping, Crying Spells, Loss of Int. in Activity, Feelings of Worthlessness, Hopelessness, Isolating-Friends/Family, Unhappiness, Increased Fatigue, Thoughts of /Suicide (denies), Low Self Esteem, Loss of Energy and Difficulty Concentrating Judgement:?Fair Diagnostics Vital Signs (24Hr): Vital Signs - 24 hr 02/26/22 18:00 02/27/22 06:45 Temperature 98.5 F 97 F Pulse Rate 81 75 Respiratory Rate 17 Blood Pressure 125/64 92/59 L Pulse Oximetry 98 95 BMI result Body Mass Index 32.5 Labs Results: 02/20/22 13:34 02/18/22 18:23 Imaging Radiology Impressions: ITS Impressions Chest X-Ray 02/18/22 22:10 IMPRESSION: Unremarkable examination. Medications Medications Current Medications Acetaminophen (Acetaminophen 325 Mg Tablet) 650 mg PO Q6H PRN PRN Reason: Headache/Pain Mild Scale (1-3) Acetaminophen (Acetaminophen 325 Mg Tablet) 650 mg PO ONCE PRN PRN Reason: Pain, Mild (Pain Scale 1-3) Al Hydroxide/Mg Hydroxide (Magnesium Hydrox/Alum Hydrox 30 Ml Oral.Susp) 30 ml PO Q6H PRN PRN Reason: Heartburn/Nausea Bupropion HCl (Bupropion Hcl Xl 300 Mg Tab.Er.24h) 300 mg PO DAILY [facility] Last Admin: 02/27/22 09:38 Dose: 300 mg Documented by: Docusate Sodium (Docusate Sodium 100 Mg Capsule) 100 mg PO BID [facility] Last Admin: 02/27/22 09:38 Dose: 100 mg Documented by: Hydroxyzine HCl (Hydroxyzine Hcl 25 Mg Tablet) 25 mg PO BEDTIME PRN PRN Reason: Anxiety Last Admin: 02/24/22 22:07 Dose: 25 mg Documented by: Magnesium Hydroxide (Milk Of Magnesia 30 Ml Oral.Susp) 30 ml PO DAILY PRN PRN Reason: Constipation Last Admin: 02/25/22 16:27 Dose: 30 ml Documented by: Nicotine Polacrilex (Nicotine Polacrilex 2 Mg Gum) 2 mg BUCCAL Q2H PRN PRN Reason: Nicotine Cravings Last Admin: 02/22/22 15:30 Dose: 2 mg Documented by: Ondansetron HCl (Ondansetron Hcl 4 Mg/2 Ml Vial) 4 mg IVPUSH ONCE PRN PRN Reason: Nausea and Vomiting Quetiapine Fumarate (Quetiapine Fumarate 100 Mg Tablet) 100 mg PO BEDTIME PRN PRN Reason: insomnia Last Admin: 02/26/22 20:54 Dose: 100 mg Documented by: Quetiapine Fumarate (Quetiapine Fumarate 25 Mg Tablet) 25 mg PO MoWeFr@0530 [facility] Last Admin: 02/26/22 05:31 Dose: 25 mg Documented by: Sertraline HCl (Sertraline Hcl 100 Mg Tablet) 100 mg PO DAILY [facility] Last Admin: 02/27/22 09:38 Dose: 100 mg Documented by: Trazodone HCl (Trazodone Hcl 50 Mg Tablet) 50 mg PO BEDTIME PRN PRN Reason: Insomnia Last Admin: 02/26/22 20:54 Dose: 50 mg Documented by: Allergies Allergies Allergy/AdvReac Type Severity Reaction Status Date / Time No Known Allergies Allergy Mild NOT Verified 12/10/21 13:07 APPLICABLE Assessment & Plan Assessment & Plan (1) MDD (major depressive disorder), recurrent severe, without psychosis: Status: Acute Code(s): F33.2 - Major depressive disorder, recurrent severe without psychotic features (2) Alcohol use disorder, moderate, in early remission: Status: Acute Code(s): F10.21 - Alcohol dependence, in remission Plan 51 yo female, history of recurrent severe major depression, currently in her sixth month of acute symptoms without relief. Episode began Sep 2021, pt was using alcohol to sleep-attended [facility] and has had no relief since with medication changes. By history ECT has been effective and she returns for consideration for this treatment. Plan: Medical Clearance, labs, EKG for ECT are completed. First treatment 02/21/22. Continue current regime. 02/21/22 ECT #1 completed. Continue current plan of care 02/22/22 No medication changes 02/23/22 no medication changes, ECT tomorrow 02/24/22- Continue current plan of care 02/26/22- Continue current plan of care. 02/27/22- Continue current plan of care. I spent minutes with the patient and/or on the patient floor today, greater than?50% of which was spent counseling/coordinating care. Patient educated on: ECT Informed Consent: understands Reason for contiued inpatient stay Substantial Risk for: inability to function and rapid decompensation
[2022-02-27 19:01] VITALS: BP 102/64; PULSE 70; RESP 17; TEMP 36.5; O2SAT 99
[2022-02-27] MEDS: QUEtiapine Fumarate 100 MG TABLET PO (20:17)
[2022-02-27] MEDS: traZODone HCL 50 MG TABLET PO (20:19)
[2022-02-28] VITALS (10 sets, daily range): BP systolic 107–160; BP diastolic 56–91; PULSE 79–92; RESP 14–18; TEMP 36.7–37.3; O2SAT 93–100
[2022-02-28] MEDS: QUEtiapine Fumarate 25 MG TABLET PO (06:02)
[2022-02-28 07:37] LABS: COVID-19 Test Negative (Negative)
--- NOTE | 2022-02-28 13:54 | MHC.SHP ---
Pre-Procedural Eval Section A Date of Service: 02/28/22 The patient is an INPATIENT: Yes Changes since office visit: No Cold of Flu in the past 2 weeks, No New Medical Problems, No Changes in Medication and No Patient answered all questions The History & Physical has been completed within 30 days and I have reviewed it.: Yes Section B Chief Complaint: recurrent major depression Allergies: Allergies Allergy/AdvReac Type Severity Reaction Status Date / Time No Known Allergies Allergy Mild NOT Verified 12/10/21 13:07 APPLICABLE Plan I have reviewed the history and physical and performed a pertinent physical examination on my patient. No changes have occurred unless specified.
--- NOTE | 2022-02-28 13:55 | HO.ECTPROC ---
ECT Procedure Note Diagnosis/Treatment Date of Service: 02/28/22 Diagnosis: Major Depressive Disorder Previous ECT Date: 02/26/22 Current Treatment Number: 4 Treatment: Series Interval Clinical Notes: The patient remains dysphoric and anxious. No side effects ECT Settings Device: THYMATRON DGx Program/Pulse Width: 0.25 Energy Percent: 100 Seizure Duration By EEG (in seconds): 47 By Motor Observation (in seconds): 27 Medications Administration General Anesthetic: Etomidate (12) Muscle Relaxant: Succinylcholine (100) Ancillary Medications Analgesics: Torodol - Pre ECT Anti-emetics: Zofran - Pre ECT Miscillaneous Medications: Propofol Airway Management Airway Management: Bag Mask Ventilation Treatment Recommendations No Changes Recommended: No change Pt Tolerated Procedure w/o Issue: Yes
[2022-02-28] MEDS: Sertraline HCL 100 MG TABLET PO (16:05)
[2022-02-28] MEDS: Docusate Sodium 100 MG CAPSULE PO (16:05)
[2022-02-28] MEDS: buPROPion HCl XL 300 MG TAB.ER.24H PO (16:05)
--- NOTE | 2022-02-28 17:02 | P.PNPSI_ITS ---
Subjective Subjective Date of Service: 02/28/22 Reason For Visit: recurrent major depression Interim History: ECT completed today. Pt was scheduled later which she reports can cause her to feel anxious. Affect somewhat flat. Reports some improvement in mood. Still concerned about work. Medication Compliance: Yes Side effects from medications: No Attending Groups: Yes Review of Systems Acute medical concerns: No Medical Review of Systems: unchanged Review of Systems Psychiatric: Reports abnormal sleep pattern, Reports anxiety, Reports depression, Reports difficulty concentrating, Reports hopelessness, Reports irritability, Reports anhedonia and Reports suicidal ideation (denies) Mental Status Exam Mental Status Exam Narrative: Patient Appearance:?Disheveled Patient Orientation:?Person, Place, Time and Situation Level of Consciousness:?Alert Patient Behavior:?Talkative, Good Eye Contact and Crying Mood Description:?Depressed and Anxious Affect Description:?Flat Patient Cognition Impaired:?No Ability to Follow Directions:?Good Speech Pattern:?Spontaneous Speech Memory Description:?Episodic Impaired Hallucinations:?None Thought Process:?Rumination Thought Content:?positive for Perseveration and positive for Suicidal Ideation (denies) Depressive Symptoms:?Increased Anxiety, Diff. Making Decisions, Increased Irritability, Difficulty Sleeping, Crying Spells, Loss of Int. in Activity, Feelings of Worthlessness, Hopelessness, Isolating-Friends/Family, Unhappiness, Increased Fatigue, Thoughts of /Suicide (denies), Low Self Esteem, Loss of Energy and Difficulty Concentrating Judgement:?Fair Diagnostics Vital Signs (24Hr): Vital Signs - 24 hr 02/27/22 19:01 02/28/22 06:00 02/28/22 08:46 Temperature 97.7 F 98.5 F 99.1 F Pulse Rate 70 85 79 Respiratory Rate 17 14 Blood Pressure 102/64 114/68 107/65 Pulse Oximetry 99 98 98 02/28/22 13:35 02/28/22 14:43 02/28/22 14:48 Temperature 98.1 F 98.4 F Pulse Rate 91 87 87 Respiratory Rate 18 15 16 Blood Pressure 118/68 144/86 H 126/91 H Pulse Oximetry 100 93 94 02/28/22 14:53 02/28/22 14:58 02/28/22 15:16 Temperature Pulse Rate 92 91 88 Respiratory Rate 17 16 16 Blood Pressure 149/81 H 139/89 141/76 H Pulse Oximetry 95 96 97 02/28/22 15:32 Temperature Pulse Rate 89 Respiratory Rate 16 Blood Pressure 160/86 H Pulse Oximetry 95 BMI result Body Mass Index 32.5 Labs Results: 02/20/22 13:34 02/18/22 18:23 Labs: Laboratory Results - last 48 hr 02/28/22 07:00 COVID-19 ([facility]) Negative COVID-19 Clin Com See Note Imaging Radiology Impressions: ITS Impressions Chest X-Ray 02/18/22 22:10 IMPRESSION: Unremarkable examination. Medications Medications Current Medications Acetaminophen (Acetaminophen 325 Mg Tablet) 650 mg PO Q6H PRN PRN Reason: Headache/Pain Mild Scale (1-3) Acetaminophen (Acetaminophen 325 Mg Tablet) 650 mg PO ONCE PRN PRN Reason: Pain, Mild (Pain Scale 1-3) Al Hydroxide/Mg Hydroxide (Magnesium Hydrox/Alum Hydrox 30 Ml Oral.Susp) 30 ml PO Q6H PRN PRN Reason: Heartburn/Nausea Bupropion HCl (Bupropion Hcl Xl 300 Mg Tab.Er.24h) 300 mg PO DAILY [facility] Last Admin: 02/28/22 16:05 Dose: 300 mg Documented by: Docusate Sodium (Docusate Sodium 100 Mg Capsule) 100 mg PO BID [facility] Last Admin: 02/28/22 16:05 Dose: 100 mg Documented by: Hydroxyzine HCl (Hydroxyzine Hcl 25 Mg Tablet) 25 mg PO BEDTIME PRN PRN Reason: Anxiety Last Admin: 02/24/22 22:07 Dose: 25 mg Documented by: Magnesium Hydroxide (Milk Of Magnesia 30 Ml Oral.Susp) 30 ml PO DAILY PRN PRN Reason: Constipation Last Admin: 02/25/22 16:27 Dose: 30 ml Documented by: Nicotine Polacrilex (Nicotine Polacrilex 2 Mg Gum) 2 mg BUCCAL Q2H PRN PRN Reason: Nicotine Cravings Last Admin: 02/22/22 15:30 Dose: 2 mg Documented by: Ondansetron HCl (Ondansetron Hcl 4 Mg/2 Ml Vial) 4 mg IVPUSH ONCE PRN PRN Reason: Nausea and Vomiting Quetiapine Fumarate (Quetiapine Fumarate 100 Mg Tablet) 100 mg PO BEDTIME PRN PRN Reason: insomnia Last Admin: 02/27/22 20:17 Dose: 100 mg Documented by: Quetiapine Fumarate (Quetiapine Fumarate 25 Mg Tablet) 25 mg PO MoWeFr@0530 [facility] Last Admin: 02/28/22 06:02 Dose: 25 mg Documented by: Sertraline HCl (Sertraline Hcl 100 Mg Tablet) 100 mg PO DAILY [facility] Last Admin: 02/28/22 16:05 Dose: 100 mg Documented by: Trazodone HCl (Trazodone Hcl 50 Mg Tablet) 50 mg PO BEDTIME PRN PRN Reason: Insomnia Last Admin: 02/27/22 20:19 Dose: 50 mg Documented by: Allergies Allergies Allergy/AdvReac Type Severity Reaction Status Date / Time No Known Allergies Allergy Mild NOT Verified 12/10/21 13:07 APPLICABLE Assessment & Plan Assessment & Plan (1) MDD (major depressive disorder), recurrent severe, without psychosis: Status: Acute Code(s): F33.2 - Major depressive disorder, recurrent severe without psychotic features (2) Alcohol use disorder, moderate, in early remission: Status: Acute Code(s): F10.21 - Alcohol dependence, in remission Plan 51 yo female, history of recurrent severe major depression, currently in her sixth month of acute symptoms without relief. Episode began Sep 2021, pt was using alcohol to sleep-attended [facility] and has had no relief since with medication changes. By history ECT has been effective and she returns for c onsideration for this treatment. Plan: Medical Clearance, labs, EKG for ECT are completed. First treatment 02/21/22. Continue current regime. 02/21/22 ECT #1 completed. Continue current plan of care 02/22/22 No medication changes 02/23/22 no medication changes, ECT tomorrow 02/24/22- Continue current plan of care 02/26/22- Continue current plan of care. 02/27/22- Continue current plan of care. 02/28/22-Continue current plan of care. I spent minutes with the patient and/or on the patient floor today, greater than?50% of which was spent counseling/coordinating care. Informed Consent: understands Reason for contiued inpatient stay Substantial Risk for: inability to function and rapid decompensation
[2022-02-28] MEDS: QUEtiapine Fumarate 100 MG TABLET PO (21:39)
[2022-02-28] MEDS: traZODone HCL 50 MG TABLET PO (21:39)
--- NOTE | 2022-02-28 23:26 | PC.NURSE ---
Pt returned from ECT treatment in PACU at 1545. Pt denies pain and is oriented fully, momentarily unsure of date and then remembered. Pt reports feeling tired and hungry. VS as follows: 124/57 left arm seated, 80, 98.2 degrees temporal.
[2022-03-01 06:50] VITALS: BP 102/59; PULSE 72; RESP 18; TEMP 36.1; O2SAT 97
[2022-03-01] MEDS: Sertraline HCL 100 MG TABLET PO (08:44)
[2022-03-01] MEDS: Docusate Sodium 100 MG CAPSULE PO ×2 (08:44→20:39)
[2022-03-01] MEDS: buPROPion HCl XL 300 MG TAB.ER.24H PO (08:44)
[2022-03-01 16:45] VITALS: BP 90/58; PULSE 84; TEMP 37.1
--- NOTE | 2022-03-01 17:06 | HO.PSYCHPN ---
Subjective Subjective Date of Service: 03/01/22 Reason For Visit: recurrent major depression Interim History: Patient seen and discussed. She had 4 ECT treatments so far. She reports she has not had side effects. Staff report she is more engaged. She says other than having a hard time finding her veins, no other problems with ECT. She has a reactive affect. She is pleasant. Affect more reactive. Reports some improvement in mood. Still concerned about work. Review of Systems Review of Systems General no headache , no dizziness no fever chills. CVS no chest pain, no palpitation. Respiratory no cough, no sputum production, no respiratory distress. Gastrointestinal no nausea no vomiting, no abdominal pain Yes all other systems are reviewed and are negative Musculoskeletal: Reports other (R Foot pain, s/p injury 2019) Psychiatric: Reports abnormal sleep pattern, Reports anxiety, Reports depression, Reports difficulty concentrating, Reports hopelessness, Reports irritability, Reports anhedonia, Reports mood swings and Reports suicidal ideation (denies) Mental Status Exam Mental Status Exam Narrative: Patient Appearance:?Disheveled Patient Orientation:?Person, Place, Time and Situation Level of Consciousness:?Alert Patient Behavior:?Talkative, Good Eye Contact and Crying Mood Description:?Depressed and Anxious Affect Description:?Flat Patient Cognition Impaired:?No Ability to Follow Directions:?Good Speech Pattern:?Spontaneous Speech Memory Description:?Episodic Impaired Hallucinations:?None Thought Process:?Rumination Thought Content:?positive for Perseveration and positive for Suicidal Ideation (denies) Depressive Symptoms:?Increased Anxiety, Diff. Making Decisions, Increased Irritability, Difficulty Sleeping, Crying Spells, Loss of Int. in Activity, Feelings of Worthlessness, Hopelessness, Isolating-Friends/Family, Unhappiness, Increased Fatigue, Thoughts of /Suicide (denies), Low Self Esteem, Loss of Energy and Difficulty Concentrating Judgement:?Fair Patient Appearance: Disheveled Patient Orientation: Person, Place, Time and Situation Level of Consciousness: Alert Patient Behavior: Talkative, Good Eye Contact and Crying Mood Description: Depressed and Anxious Affect Description: Flat Patient Cognition Impaired: No Ability to Follow Directions: Good Speech Pattern: Spontaneous Speech Memory Description: Episodic Impaired Diagnostics Vital Signs (24Hr): Vital Signs - 24 hr 03/01/22 06:50 Temperature 97 F Pulse Rate 72 Respiratory Rate 18 Blood Pressure 102/59 L Pulse Oximetry 97 BMI result Body Mass Index 32.5 Labs Results: 02/20/22 13:34 02/18/22 18:23 Labs: Laboratory Results - last 48 hr 02/28/22 07:00 COVID-19 ([facility]) Negative COVID-19 Clin Com See Note Imaging Radiology Impressions: ITS Impressions Chest X-Ray 02/18/22 22:10 IMPRESSION: Unremarkable examination. Medications Medications Current Medications Acetaminophen (Acetaminophen 325 Mg Tablet) 650 mg PO Q6H PRN PRN Reason: Headache/Pain Mild Scale (1-3) Acetaminophen (Acetaminophen 325 Mg Tablet) 650 mg PO ONCE PRN PRN Reason: Pain, Mild (Pain Scale 1-3) Al Hydroxide/Mg Hydroxide (Magnesium Hydrox/Alum Hydrox 30 Ml Oral.Susp) 30 ml PO Q6H PRN PRN Reason: Heartburn/Nausea Bupropion HCl (Bupropion Hcl Xl 300 Mg Tab.Er.24h) 300 mg PO DAILY [facility] Last Admin: 03/01/22 08:44 Dose: 300 mg Documented by: Docusate Sodium (Docusate Sodium 100 Mg Capsule) 100 mg PO BID [facility] Last Admin: 03/01/22 08:44 Dose: 100 mg Documented by: Hydroxyzine HCl (Hydroxyzine Hcl 25 Mg Tablet) 25 mg PO BEDTIME PRN PRN Reason: Anxiety Last Admin: 02/24/22 22:07 Dose: 25 mg Documented by: Magnesium Hydroxide (Milk Of Magnesia 30 Ml Oral.Susp) 30 ml PO DAILY PRN PRN Reason: Constipation Last Admin: 02/25/22 16:27 Dose: 30 ml Documented by: Nicotine Polacrilex (Nicotine Polacrilex 2 Mg Gum) 2 mg BUCCAL Q2H PRN PRN Reason: Nicotine Cravings Last Admin: 02/22/22 15:30 Dose: 2 mg Documented by: Ondansetron HCl (Ondansetron Hcl 4 Mg/2 Ml Vial) 4 mg IVPUSH ONCE PRN PRN Reason: Nausea and Vomiting Quetiapine Fumarate (Quetiapine Fumarate 100 Mg Tablet) 100 mg PO BEDTIME PRN PRN Reason: insomnia Last Admin: 02/28/22 21:39 Dose: 100 mg Documented by: Quetiapine Fumarate (Quetiapine Fumarate 25 Mg Tablet) 25 mg PO MoWeFr@0530 [facility] Last Admin: 02/28/22 06:02 Dose: 25 mg Documented by: Sertraline HCl (Sertraline Hcl 100 Mg Tablet) 100 mg PO DAILY [facility] Last Admin: 03/01/22 08:44 Dose: 100 mg Documented by: Trazodone HCl (Trazodone Hcl 50 Mg Tablet) 50 mg PO BEDTIME PRN PRN Reason: Insomnia Last Admin: 02/28/22 21:39 Dose: 50 mg Documented by: Allergies Allergies Allergy/AdvReac Type Severity Reaction Status Date / Time No Known Allergies Allergy Mild NOT Verified 12/10/21 13:07 APPLICABLE Assessment & Plan Assessment & Plan (1) MDD (major depressive disorder), recurrent severe, without psychosis: Status: Acute Code(s): F33.2 - Major depressive disorder, recurrent severe without psychotic features (2) Alcohol use disorder, moderate, in early remission: Status: Acute Code(s): F10.21 - Alcohol dependence, in remission Plan 51 yo female, history of recurrent severe major depression, currently in her sixth month of acute symptoms without relief. 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 By history ECT has been effective and she returns for consideration for this treatment. Plan: Medical Clearance, labs, EKG for ECT are completed. First treatment 02/21/22. Continue current regime. 02/21/22 ECT #1 completed. Continue current plan of care 02/22/22 No medication changes 02/23/22 no medication changes, ECT tomorrow 02/24/22- Continue current plan of care 02/26/22- Continue current plan of care. 02/27/22- Continue current plan of care. 02/28/22-Continue current plan of care. 03/01 Continue ECT I spent minutes with the patient and/or on the patient floor today, greater than?50% of which was spent counseling/coordinating care. Reason for contiued inpatient stay Substantial Risk for: harm to self and inability to function
[2022-03-01] MEDS: QUEtiapine Fumarate 100 MG TABLET PO (20:39)
[2022-03-01] MEDS: traZODone HCL 50 MG TABLET PO (20:39)
[2022-03-02 06:45] VITALS: BP 107/67; PULSE 74; RESP 16; TEMP 36.8; O2SAT 99
[2022-03-02] MEDS: Sertraline HCL 100 MG TABLET PO (08:59)
[2022-03-02] MEDS: Docusate Sodium 100 MG CAPSULE PO ×2 (08:59→20:57)
[2022-03-02] MEDS: buPROPion HCl XL 300 MG TAB.ER.24H PO (08:59)
--- NOTE | 2022-03-02 13:28 | HO.PSYCHPN ---
Subjective Subjective Date of Service: 03/02/22 Reason For Visit: recurrent major depression Interim History: Patient seen and discussed. She was seen in her room. She was reading a book. She says she is able to concentrate well on reading it and able to remember events in the book and follow the plot. She appeared in a good mood. She is aware she has to stay NPO after MN for ECT tomorrow. Affect more reactive. Reports some improvement in mood. Review of Systems Review of Systems General no headache , no dizziness no fever chills. CVS no chest pain, no palpitation. Respiratory no cough, no sputum production, no respiratory distress. Gastrointestinal no nausea no vomiting, no abdominal pain Yes all other systems are reviewed and are negative Musculoskeletal: Reports other (R Foot pain, s/p injury 2019) Psychiatric: Reports abnormal sleep pattern, Reports anxiety, Reports depression, Reports difficulty concentrating, Reports hopelessness, Reports irritability, Reports anhedonia, Reports mood swings and Reports suicidal ideation (denies) Mental Status Exam Mental Status Exam Narrative: Patient Appearance:?casual appropriate Patient Orientation:?Person, Place, Time and Situation Level of Consciousness:?Alert Patient Behavior:?Talkative, Good Eye Contact and Crying Mood Description:?Depressed and Anxious Affect Description:?more reactive Patient Cognition Impaired:?No Ability to Follow Directions:?Good Speech Pattern:?Spontaneous Speech Memory Description:?No impairment Hallucinations:?None Thought Process:?Rumination Thought Content:?positive for Perseveration No SI Depressive Symptoms:?Increased Anxiety, Diff. Making Decisions, Increased Irritability, Difficulty Sleeping, Crying Spells, Loss of Int. in Activity, Feelings of Worthlessness, Hopelessness, Isolating-Friends/Family, Unhappiness, Increased Fatigue, Thoughts of /Suicide (denies), Low Self Esteem, Loss of Energy Judgement:?Improved Patient Orientation: Person, Place, Time and Situation Level of Consciousness: Alert Patient Behavior: Talkative and Good Eye Contact Mood Description: Depressed and Anxious Affect Description: Calm (more reactive) Patient Cognition Impaired: No Ability to Follow Directions: Good Speech Pattern: Spontaneous Speech Diagnostics Vital Signs (24Hr): Vital Signs - 24 hr 03/01/22 16:45 03/02/22 06:45 Temperature 98.8 F 98.2 F Pulse Rate 84 74 Respiratory Rate 16 Blood Pressure 90/58 L 107/67 Pulse Oximetry 99 BMI result Body Mass Index 32.5 Labs Results: 02/20/22 13:34 02/18/22 18:23 Imaging Radiology Impressions: ITS Impressions Chest X-Ray 02/18/22 22:10 IMPRESSION: Unremarkable examination. Medications Medications Current Medications Acetaminophen (Acetaminophen 325 Mg Tablet) 650 mg PO Q6H PRN PRN Reason: Headache/Pain Mild Scale (1-3) Acetaminophen (Acetaminophen 325 Mg Tablet) 650 mg PO ONCE PRN PRN Reason: Pain, Mild (Pain Scale 1-3) Al Hydroxide/Mg Hydroxide (Magnesium Hydrox/Alum Hydrox 30 Ml Oral.Susp) 30 ml PO Q6H PRN PRN Reason: Heartburn/Nausea Bupropion HCl (Bupropion Hcl Xl 300 Mg Tab.Er.24h) 300 mg PO DAILY [facility] Last Admin: 03/02/22 08:59 Dose: 300 mg Documented by: Docusate Sodium (Docusate Sodium 100 Mg Capsule) 100 mg PO BID [facility] Last Admin: 03/02/22 08:59 Dose: 100 mg Documented by: Hydroxyzine HCl (Hydroxyzine Hcl 25 Mg Tablet) 25 mg PO BEDTIME PRN PRN Reason: Anxiety Last Admin: 02/24/22 22:07 Dose: 25 mg Documented by: Magnesium Hydroxide (Milk Of Magnesia 30 Ml Oral.Susp) 30 ml PO DAILY PRN PRN Reason: Constipation Last Admin: 02/25/22 16:27 Dose: 30 ml Documented by: Nicotine Polacrilex (Nicotine Polacrilex 2 Mg Gum) 2 mg BUCCAL Q2H PRN PRN Reason: Nicotine Cravings Last Admin: 02/22/22 15:30 Dose: 2 mg Documented by: Ondansetron HCl (Ondansetron Hcl 4 Mg/2 Ml Vial) 4 mg IVPUSH ONCE PRN PRN Reason: Nausea and Vomiting Quetiapine Fumarate (Quetiapine Fumarate 100 Mg Tablet) 100 mg PO BEDTIME PRN PRN Reason: insomnia Last Admin: 03/01/22 20:39 Dose: 100 mg Documented by: Quetiapine Fumarate (Quetiapine Fumarate 25 Mg Tablet) 25 mg PO [id number]@0530 [facility] Last Admin: 02/28/22 06:02 Dose: 25 mg Documented by: Sertraline HCl (Sertraline Hcl 100 Mg Tablet) 100 mg PO DAILY [facility] Last Admin: 03/02/22 08:59 Dose: 100 mg Documented by: Trazodone HCl (Trazodone Hcl 50 Mg Tablet) 50 mg PO BEDTIME PRN PRN Reason: Insomnia Last Admin: 03/01/22 20:39 Dose: 50 mg Documented by: Allergies Allergies Allergy/AdvReac Type Severity Reaction Status Date / Time No Known Allergies Allergy Mild NOT Verified 12/10/21 13:07 APPLICABLE Assessment & Plan Assessment & Plan (1) MDD (major depressive disorder), recurrent severe, without psychosis: Status: Acute Code(s): F33.2 - Major depressive disorder, recurrent severe without psychotic features (2) Alcohol use disorder, moderate, in early remission: Status: Acute Code(s): F10.21 - Alcohol dependence, in remission Plan 51 yo female, history of recurrent severe major depression, currently in her sixth month of acute symptoms without relief. Episode began Sep 2021, pt was using alcohol to sleep-attended RCA [place] and has had no relief since with medication changes. By history ECT has been effective and she returns for consideration for this treatment. Plan: Medical Clearance, labs, EKG for ECT are completed. First treatment 02/21/22. Continue current regime. 02/21/22 ECT #1 completed. Continue current plan of care 02/22/22 No medication changes 02/23/22 no medication changes, ECT tomorrow 02/24/22- Continue current plan of care 02/26/22- Continue current plan of care. 02/27/22- Continue current plan of care. 02/28/22-Continue current plan of care. 03/01 Continue ECT 03/02 Continue ECT I spent minutes with the patient and/or on the patient floor today, greater than?50% of which was spent counseling/coordinating care. Reason for contiued inpatient stay Substantial Risk for: harm to self and inability to function
--- NOTE | 2022-03-02 13:33 | HO.PSYCHPN ---
Subjective Subjective Reason For Visit: recurrent major depression Diagnostics Vital Signs (24Hr): Vital Signs - 24 hr 03/01/22 16:45 03/02/22 06:45 Temperature 98.8 F 98.2 F Pulse Rate 84 74 Respiratory Rate 16 Blood Pressure 90/58 L 107/67 Pulse Oximetry 99 BMI result Body Mass Index 32.5 Labs Results: 02/20/22 13:34 02/18/22 18:23 Imaging Radiology Impressions: ITS Impressions Chest X-Ray 02/18/22 22:10 IMPRESSION: Unremarkable examination. Medications Medications Current Medications Acetaminophen (Acetaminophen 325 Mg Tablet) 650 mg PO Q6H PRN PRN Reason: Headache/Pain Mild Scale (1-3) Acetaminophen (Acetaminophen 325 Mg Tablet) 650 mg PO ONCE PRN PRN Reason: Pain, Mild (Pain Scale 1-3) Al Hydroxide/Mg Hydroxide (Magnesium Hydrox/Alum Hydrox 30 Ml Oral.Susp) 30 ml PO Q6H PRN PRN Reason: Heartburn/Nausea Bupropion HCl (Bupropion Hcl Xl 300 Mg Tab.Er.24h) 300 mg PO DAILY [facility] Last Admin: 03/02/22 08:59 Dose: 300 mg Documented by: Docusate Sodium (Docusate Sodium 100 Mg Capsule) 100 mg PO BID [facility] Last Admin: 03/02/22 08:59 Dose: 100 mg Documented by: Hydroxyzine HCl (Hydroxyzine Hcl 25 Mg Tablet) 25 mg PO BEDTIME PRN PRN Reason: Anxiety Last Admin: 02/24/22 22:07 Dose: 25 mg Documented by: Magnesium Hydroxide (Milk Of Magnesia 30 Ml Oral.Susp) 30 ml PO DAILY PRN PRN Reason: Constipation Last Admin: 02/25/22 16:27 Dose: 30 ml Documented by: Nicotine Polacrilex (Nicotine Polacrilex 2 Mg Gum) 2 mg BUCCAL Q2H PRN PRN Reason: Nicotine Cravings Last Admin: 02/22/22 15:30 Dose: 2 mg Documented by: Ondansetron HCl (Ondansetron Hcl 4 Mg/2 Ml Vial) 4 mg IVPUSH ONCE PRN PRN Reason: Nausea and Vomiting Quetiapine Fumarate (Quetiapine Fumarate 100 Mg Tablet) 100 mg PO BEDTIME PRN PRN Reason: insomnia Last Admin: 03/01/22 20:39 Dose: 100 mg Documented by: Quetiapine Fumarate (Quetiapine Fumarate 25 Mg Tablet) 25 mg PO MoWeFr@0530 [facility] Last Admin: 02/28/22 06:02 Dose: 25 mg Documented by: Sertraline HCl (Sertraline Hcl 100 Mg Tablet) 100 mg PO DAILY [facility] Last Admin: 03/02/22 08:59 Dose: 100 mg Documented by: Trazodone HCl (Trazodone Hcl 50 Mg Tablet) 50 mg PO BEDTIME PRN PRN Reason: Insomnia Last Admin: 03/01/22 20:39 Dose: 50 mg Documented by: Allergies Allergies Allergy/AdvReac Type Severity Reaction Status Date / Time No Known Allergies Allergy Mild NOT Verified 12/10/21 13:07 APPLICABLE Assessment & Plan Assessment & Plan (1) MDD (major depressive disorder), recurrent severe, without psychosis: Status: Acute Code(s): F33.2 - Major depressive disorder, recurrent severe without psychotic features (2) Alcohol use disorder, moderate, in early remission: Status: Acute Code(s): F10.21 - Alcohol dependence, in remission Plan 51 yo female, history of recurrent severe major depression, currently in her sixth month of acute symptoms without relief. 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 By history ECT has been effective and she returns for consideration for this treatment. Plan: Medical Clearance, labs, EKG for ECT are completed. First treatment 02/21/22. Continue current regime. 02/21/22 ECT #1 completed. Continue current plan of care 02/22/22 No medication changes 02/23/22 no medication changes, ECT tomorrow 02/24/22- Continue current plan of care 02/26/22- Continue current plan of care. 02/27/22- Continue current plan of care. 02/28/22-Continue current plan of care. 03/01 Continue ECT 03/02 Continue ECT I spent minutes with the patient and/or on the patient floor today, greater than?50% of which was spent counseling/coordinating care.
[2022-03-02 19:15] VITALS: BP 111/63; PULSE 89; TEMP 36.8
[2022-03-02] MEDS: QUEtiapine Fumarate 100 MG TABLET PO (20:57)
[2022-03-02] MEDS: traZODone HCL 50 MG TABLET PO (20:57)
[2022-03-03] VITALS (10 sets, daily range): BP systolic 95–118; BP diastolic 50–76; PULSE 70–99; RESP 14–19; TEMP 36.2–37.4; O2SAT 90–97
[2022-03-03] MEDS: QUEtiapine Fumarate 25 MG TABLET PO (05:40)
--- NOTE | 2022-03-03 08:06 | HO.ECTPROC ---
ECT Procedure Note Diagnosis/Treatment Date of Service: 03/04/22 Diagnosis: Major Depressive Disorder Current Treatment Number: 5 Treatment: Series Interval Clinical Notes: pt having pre ect anxiety sec to room change having to wait for tx otherwise responding ECT Settings Device: THYMATRON DGx Electrode Placement: Right Unilateral Program/Pulse Width: 0.50 Energy Percent: 100 Seizure Duration By EEG (in seconds): 46 Medications Administration General Anesthetic: Etomidate (12) Muscle Relaxant: Succinylcholine (100) Ancillary Medications Analgesics: Torodol - Pre ECT Anti-emetics: Zofran - Pre ECT Miscillaneous Medications: Midazolam (2mg) Airway Management Airway Management: Bag Mask Ventilation Treatment Recommendations Pt Tolerated Procedure w/o Issue: Yes
--- NOTE | 2022-03-03 12:37 | HO.ANESPROP2 ---
[facility] Active Problems Active Problems: All Active Problems (Updated 02/20/22 @ 16:22 by Mojgan Mena MD) Pre-op evaluation (Acute) Leukocytosis (Acute) Alcohol use disorder, moderate, in early remission (Acute) MDD (major depressive disorder), recurrent severe, without psychosis (Acute) HUMBERTO (generalized anxiety disorder) (Acute) Past Medical History Medical History Basal cell carcinoma H/O hidradenitis suppurativa History of fracture of left ankle Family History Family history of problems with anesthesia: No Surgical History History of Problems with Anesthesia: No Social History Social History Household Members: None Household Members Other:: N/A Housing: Condominium Do you presently have visiting nurse or other home services: No Unable to assess alcohol history related to: Unable to respond Patient Tobacco Use Status: Current everyday Tobacco user Tobacco use type: Cigarette Cigarette Packs Per Day: 0.25 Cigarettes Per Day: 5.0 Smoked in Last 30 Days: Yes e-Cigarette/Vaping Use: Currently Using Patient Interested in Nicotine Replacement: Yes Patient Given Instructions on How to Stop Smoking: No Use of substances other than those prescribed or required for medical reasons: Yes Substance Use Type: Marijuana and Caffiene Substance Use Frequency: Occasionally Last Used Substance Other:: July 2021 Currently Displaying Signs/Symptoms of Drug Intoxication Withdrawal: No Any prior treatment program specific to substance use: Yes ([facility]) Have you been hit, kicked, punched, or otherwise hurt by someone within the past year? If so, by whom?: No Do you feel safe in your current relationship?: No Is there a partner from a previous relationship who is making you feel unsafe now?: No Are you made to feel afraid or neglected: No Advance Directives: No Advance Directives Information Provided: No Guardian: No Do you have thoughts of harming others: None Do you have a plan to hurt others: No Plan Recently lost weight without trying: No Nutrition Risks: No Nutritional Risk Patient : No : No Poor oral hygiene: No service: No Sexual orientation: Straight/Heterosexual Meds Allergies Allergy/AdvReac Type Severity Reaction Status Date / Time No Known Allergies Allergy Mild NOT Verified 12/10/21 13:07 APPLICABLE Active Medications: Current Medications Acetaminophen (Acetaminophen 325 Mg Tablet) 650 mg PO Q6H PRN PRN Reason: Headache/Pain Mild Scale (1-3) Acetaminophen (Acetaminophen 325 Mg Tablet) 650 mg PO ONCE PRN PRN Reason: Pain, Mild (Pain Scale 1-3) Al Hydroxide/Mg Hydroxide (Magnesium Hydrox/Alum Hydrox 30 Ml Oral.Susp) 30 ml PO Q6H PRN PRN Reason: Heartburn/Nausea Bupropion HCl (Bupropion Hcl Xl 300 Mg Tab.Er.24h) 300 mg PO DAILY [facility] Last Admin: 03/02/22 08:59 Dose: 300 mg Documented by: Docusate Sodium (Docusate Sodium 100 Mg Capsule) 100 mg PO BID [facility] Last Admin: 03/02/22 20:57 Dose: 100 mg Documented by: Hydroxyzine HCl (Hydroxyzine Hcl 25 Mg Tablet) 25 mg PO BEDTIME PRN PRN Reason: Anxiety Last Admin: 02/24/22 22:07 Dose: 25 mg Documented by: Lactated Ringer's (Lr) 1,000 mls @ 50 mls/hr IVCONT .Q20H [facility] Magnesium Hydroxide (Milk Of Magnesia 30 Ml Oral.Susp) 30 ml PO DAILY PRN PRN Reason: Constipation Last Admin: 02/25/22 16:27 Dose: 30 ml Documented by: Nicotine Polacrilex (Nicotine Polacrilex 2 Mg Gum) 2 mg BUCCAL Q2H PRN PRN Reason: Nicotine Cravings Last Admin: 02/22/22 15:30 Dose: 2 mg Documented by: Ondansetron HCl (Ondansetron Hcl 4 Mg/2 Ml Vial) 4 mg IVPUSH ONCE PRN PRN Reason: Nausea and Vomiting Quetiapine Fumarate (Quetiapine Fumarate 100 Mg Tablet) 100 mg PO BEDTIME PRN PRN Reason: insomnia Last Admin: 03/02/22 20:57 Dose: 100 mg Documented by: Quetiapine Fumarate (Quetiapine Fumarate 25 Mg Tablet) 25 mg PO [id number]@[id number] [facility] Last Admin: 03/03/22 05:40 Dose: 25 mg Documented by: Sertraline HCl (Sertraline Hcl 100 Mg Tablet) 100 mg PO DAILY [facility] Last Admin: 03/02/22 08:59 Dose: 100 mg Documented by: Trazodone HCl (Trazodone Hcl 50 Mg Tablet) 50 mg PO BEDTIME PRN PRN Reason: Insomnia Last Admin: 03/02/22 20:57 Dose: 50 mg Documented by: Home Medications Medication Instructions Recorded Confirmed Last Taken Type bupropion HCl 150 mg 24 hr tablet, 300 mg PO QAM 02/18/22 02/18/22 Unknown History extended release quetiapine 100 mg tablet 1 - 3 tab PO BEDTIME PRN 02/18/22 02/18/22 Unknown History sertraline 100 mg tablet 100 mg PO QAM 02/18/22 02/18/22 Unknown History Exam Exam Date and Time: March 03, 2022 1237 Height,Weight and Vital Signs: Height 5 ft 5 in Weight 88.8 kg Last Vital Signs Temp 99.3 F 03/03/22 12:04 Pulse 84 03/03/22 12:04 Resp 18 03/03/22 12:04 BP 109/62 03/03/22 12:04 Pulse Ox 96 03/03/22 12:04 Pertinent Lab Results Pertinent Lab Results: Laboratory Tests 02/18/22 02/18/22 02/18/22 18:23 18:23 18:23 WBC 19.1 H RBC 4.54 Hgb 13.3 Hct 43.8 MCV 96.5 MCH 29.3 MCHC 30.4 L RDW 12.8 Plt Count 385 MPV 9.5 Immature Gran % (Auto) 0.8 H Neut % (Auto) 71.9 Lymph % (Auto) 18.2 L Swain % (Auto) 6.2 Eos % (Auto) 2.4 Baso % (Auto) 0.5 Lymph # (Auto) 3.5 Swain # (Auto) 1.2 Eos # (Auto) 0.5 H Baso # (Auto) 0.1 Abs Immat Gran (auto) 0.16 H Absolute Neuts (auto) 13.8 H Absolute Nucleated RBC 0.000 Nucleated RBC % (auto) 0.0 Sodium 137 Potassium 4.4 Chloride 104 Carbon Dioxide 20 L Anion Gap 17 BUN 10 Creatinine 0.85 Estim Creat Clear Calc 87.0 Estimated GFR > 60 Random Glucose 102 Estimat Average Glucose Hemoglobin A1c % Lactic Acid Calcium 10.2 Magnesium 2.2 Total Bilirubin 0.4 AST 24 ALT 34 H Alkaline Phosphatase 82 Total Protein 7.4 Albumin 4.3 Triglycerides Cholesterol LDL Cholesterol, Calc HDL Cholesterol Vitamin B12 Folate TSH Free T4 Urine Color Urine Appearance Urine pH Ur Specific Thornton Urine Protein Urine Glucose (UA) Urine Ketones Urine Blood Urine Nitrite Ur Leukocyte Esterase Urine RBC Urine WBC Ur Squamous Epith Cells Urine Bacteria Urine Opiates Screen Urine Fentanyl Screen Ur Barbiturates Screen Ur Phencyclidine Scrn Ur Amphetamines Screen U Benzodiazepines Scrn Urine Cocaine Screen U Marijuana (THC) Screen Ethyl Alcohol < 10 COVID-19 ([facility]) COVID-19 Clin Com 02/18/22 02/18/22 02/18/22 18:56 20:04 20:04 WBC RBC Hgb Hct MCV MCH MCHC RDW Plt Count MPV Immature Gran % (Auto) Neut % (Auto) Lymph % (Auto) Swain % (Auto) Eos % (Auto) Baso % (Auto) Lymph # (Auto) Swain # (Auto) Eos # (Auto) Baso # (Auto) Abs Immat Gran (auto) Absolute Neuts (auto) Absolute Nucleated RBC Nucleated RBC % (auto) Sodium Potassium Chloride Carbon Dioxide Anion Gap BUN Creatinine Estim Creat Clear Calc Estimated GFR Random Glucose Estimat Average Glucose Hemoglobin A1c % Lactic Acid Calcium Magnesium Total Bilirubin AST ALT Alkaline Phosphatase Total Protein Albumin Triglycerides Cholesterol LDL Cholesterol, Calc HDL Cholesterol Vitamin B12 Folate TSH Free T4 Urine Color YELLOW Urine Appearance CLEAR Urine pH 5.5 Ur Specific [place] 1.020 Urine Protein NEG Urine Glucose (UA) NEG Urine Ketones NEG Urine Blood 2+ H Urine Nitrite NEG Ur Leukocyte Esterase NEG Urine RBC 10-14 H Urine WBC 0 Ur Squamous Epith Cells 2+ Urine Bacteria 3+ Urine Opiates Screen Not Detected Urine Fentanyl Screen Not Detected Ur Barbiturates Screen Not Detected Ur Phencyclidine Scrn Not Detected Ur Amphetamines Screen Not Detected U Benzodiazepines Scrn Not Detected Urine Cocaine Screen Not Detected U Marijuana (THC) Screen Not Detected Ethyl Alcohol COVID-19 ([facility]) Negative COVID-19 Clin Com See Note 02/19/22 02/20/22 02/20/22 01:48 08:01 08:01 WBC RBC Hgb Hct MCV MCH MCHC RDW Plt Count MPV Immature Gran % (Auto) Neut % (Auto) Lymph % (Auto) Swain % (Auto) Eos % (Auto) Baso % (Auto) Lymph # (Auto) Swain # (Auto) Eos # (Auto) Baso # (Auto) Abs Immat Gran (auto) Absolute Neuts (auto) Absolute Nucleated RBC Nucleated RBC % (auto) Sodium Potassium Chloride Carbon Dioxide Anion Gap BUN Creatinine Estim Creat Clear Calc Estimated GFR Random Glucose Estimat Average Glucose 105 Hemoglobin A1c % 5.3 Lactic Acid 0.9 Calcium Magnesium 2.3 Total Bilirubin AST ALT Alkaline Phosphatase Total Protein Albumin Triglycerides 151 Cholesterol 242 LDL Cholesterol, Calc 159 HDL Cholesterol 53 Vitamin B12 Folate TSH 2.34 Free T4 0.90 Urine Color Urine Appearance Urine pH Ur Specific Thornton Urine Protein Urine Glucose (UA) Urine Ketones Urine Blood Urine Nitrite Ur Leukocyte Esterase Urine RBC Urine WBC Ur Squamous Epith Cells Urine Bacteria Urine Opiates Screen Urine Fentanyl Screen Ur Barbiturates Screen Ur Phencyclidine Scrn Ur Amphetamines Screen U Benzodiazepines Scrn Urine Cocaine Screen U Marijuana (THC) Screen Ethyl Alcohol COVID-19 ([facility]) COVID-19 Clin Com 02/20/22 02/20/22 02/28/22 08:01 13:34 07:00 WBC 15.9 H RBC 4.51 Hgb 13.0 Hct 40.3 MCV 89.4 D MCH 28.8 MCHC 32.3 RDW 12.6 Plt Count 375 MPV 8.8 L Immature Gran % (Auto) 0.6 H Neut % (Auto) 72.0 Lymph % (Auto) 17.2 L Swain % (Auto) 6.1 Eos % (Auto) 3.5 Baso % (Auto) 0.6 Lymph # (Auto) 2.7 Swain # (Auto) 1.0 Eos # (Auto) 0.6 H Baso # (Auto) 0.1 Abs Immat Gran (auto) 0.10 H Absolute Neuts (auto) 11.5 H Absolute Nucleated RBC 0.000 Nucleated RBC % (auto) 0.0 Sodium Potassium Chloride Carbon Dioxide Anion Gap BUN Creatinine Estim Creat Clear Calc Estimated GFR Random Glucose Estimat Average Glucose Hemoglobin A1c % Lactic Acid Calcium Magnesium Total Bilirubin AST ALT Alkaline Phosphatase Total Protein Albumin Triglycerides Cholesterol LDL Cholesterol, Calc HDL Cholesterol Vitamin B12 415 Folate 14.2 TSH Free T4 Urine Color Urine Appearance Urine pH Ur Specific Thornton Urine Protein Urine Glucose (UA) Urine Ketones Urine Blood Urine Nitrite Ur Leukocyte Esterase Urine RBC Urine WBC Ur Squamous Epith Cells Urine Bacteria Urine Opiates Screen Urine Fentanyl Screen Ur Barbiturates Screen Ur Phencyclidine Scrn Ur Amphetamines Screen U Benzodiazepines Scrn Urine Cocaine Screen U Marijuana (THC) Screen Ethyl Alcohol COVID-19 ([facility]) Negative COVID-19 Clin Com See Note Airway Mallampati Class: II TM Dist: >3cm Neck ROM: Full Heart: rrr Lungs: cta Assessment and Plan Assessment Anesthesia Assessment: Anesthesia Plan Discussed and Chart Reviewed Final Anesthetic Review Family History of Problems with Anesthesia: No History of Problems with Anesthesia: No NPO: Yes ASA Class: III Final Preanesthetic Review: No Changes in Pt Med Stat, Meds/Allgs Chart Reviewed and Consent Obtained/Reviewed Patient Risk: Intermediate Procedure Risk: Intermediate Anesthetic Plan Anesthetic Plan: GA Disposition: Standard PACU
--- NOTE | 2022-03-03 14:03 | MHC.SHP ---
Pre-Procedural Eval Section A Date of Service: 03/03/22 The patient is an INPATIENT: Yes Changes since office visit: Yes Patient answered all questions; No Cold of Flu in the past 2 weeks, No New Medical Problems and No Changes in Medication The History & Physical has been completed within 30 days and I have reviewed it.: Yes Section B Chief Complaint: recurrent major depression Allergies: Allergies Allergy/AdvReac Type Severity Reaction Status Date / Time No Known Allergies Allergy Mild NOT Verified 12/10/21 13:07 APPLICABLE Plan I have reviewed the history and physical and performed a pertinent physical examination on my patient. No changes have occurred unless specified.
--- NOTE | 2022-03-03 15:33 | P.PNPSI_ITS ---
Subjective Subjective Date of Service: 03/03/22 Reason For Visit: recurrent major depression Interim History: pt reports she has just returned from ECT and it seems to have gone well. it is treatment number 5. she has no requests or complaints other than that she is hungry. she is directed to the milieu and staff is informed of her request. per staff, pleasant but appeared sedated today. just transferred from in the night. Mental Status Exam Mental Status Exam Narrative: Patient Appearance:?casual appropriate Patient Orientation:?Person, Place, Time and Situation Level of Consciousness:?Alert Patient Behavior:?Talkative, Good Eye Contact Mood Description:?Depressed and Anxious Affect Description:?constricted, normo-intense Patient Cognition Impaired:?No Ability to Follow Directions:?Good Speech Pattern:?Spontaneous Speech Memory Description:?No impairment Hallucinations:?None Thought Process:?Rumination Thought Content:?positive for Perseveration No SI Patient Orientation: Person, Place, Time and Situation Level of Consciousness: Alert Patient Behavior: Talkative and Good Eye Contact Mood Description: Depressed and Anxious Affect Description: Calm (more reactive) Patient Cognition Impaired: No Ability to Follow Directions: Good Speech Pattern: Spontaneous Speech Diagnostics Vital Signs (24Hr): Vital Signs - 24 hr 03/02/22 19:15 03/03/22 05:47 03/03/22 11:40 Temperature 98.3 F 97.8 F 97.2 F Pulse Rate 89 70 82 Respiratory Rate 16 16 Blood Pressure 111/63 103/59 L 111/68 Pulse Oximetry 94 97 03/03/22 12:04 03/03/22 14:24 03/03/22 14:29 Temperature 99.3 F 98.9 F Pulse Rate 84 88 88 Respiratory Rate 18 14 16 Blood Pressure 109/62 118/76 112/67 Pulse Oximetry 96 92 92 03/03/22 14:34 03/03/22 14:39 03/03/22 14:54 Temperature 98.0 F Pulse Rate 87 93 97 Respiratory Rate 16 19 18 Blood Pressure 114/71 109/70 101/50 L Pulse Oximetry 93 94 95 03/03/22 15:15 Temperature 97.6 F Pulse Rate 99 Respiratory Rate 16 Blood Pressure 105/56 L Pulse Oximetry 90 L BMI result Body Mass Index 32.5 Labs Results: 02/20/22 13:34 02/18/22 18:23 Imaging Radiology Impressions: ITS Impressions Chest X-Ray 02/18/22 22:10 IMPRESSION: Unremarkable examination. Medications Medications Current Medications Acetaminophen (Acetaminophen 325 Mg Tablet) 650 mg PO Q6H PRN PRN Reason: Headache/Pain Mild Scale (1-3) Acetaminophen (Acetaminophen 325 Mg Tablet) 650 mg PO ONCE PRN PRN Reason: Pain, Mild (Pain Scale 1-3) Al Hydroxide/Mg Hydroxide (Magnesium Hydrox/Alum Hydrox 30 Ml Oral.Susp) 30 ml PO Q6H PRN PRN Reason: Heartburn/Nausea Bupropion HCl (Bupropion Hcl Xl 300 Mg Tab.Er.24h) 300 mg PO DAILY [facility] Last Admin: 03/03/22 15:21 Dose: Not Given Documented by: Docusate Sodium (Docusate Sodium 100 Mg Capsule) 100 mg PO BID [facility] Last Admin: 03/03/22 15:21 Dose: Not Given Documented by: Hydroxyzine HCl (Hydroxyzine Hcl 25 Mg Tablet) 25 mg PO BEDTIME PRN PRN Reason: Anxiety Last Admin: 02/24/22 22:07 Dose: 25 mg Documented by: Lactated Ringer's (Lr) 1,000 mls @ 50 mls/hr IVCONT .Q20H [facility] Lactated Ringer's (Lr) 1,000 mls @ 50 mls/hr IVCONT .Q20H [facility] Magnesium Hydroxide (Milk Of Magnesia 30 Ml Oral.Susp) 30 ml PO DAILY PRN PRN Reason: Constipation Last Admin: 02/25/22 16:27 Dose: 30 ml Documented by: Nicotine Polacrilex (Nicotine Polacrilex 2 Mg Gum) 2 mg BUCCAL Q2H PRN PRN Reason: Nicotine Cravings Last Admin: 02/22/22 15:30 Dose: 2 mg Documented by: Ondansetron HCl (Ondansetron Hcl 4 Mg/2 Ml Vial) 4 mg IVPUSH ONCE PRN PRN Reason: Nausea and Vomiting Quetiapine Fumarate (Quetiapine Fumarate 100 Mg Tablet) 100 mg PO BEDTIME PRN PRN Reason: insomnia Last Admin: 03/02/22 20:57 Dose: 100 mg Documented by: Quetiapine Fumarate (Quetiapine Fumarate 25 Mg Tablet) 25 mg PO [id number]@0530 [facility] Last Admin: 03/03/22 05:40 Dose: 25 mg Documented by: Sertraline HCl (Sertraline Hcl 100 Mg Tablet) 100 mg PO DAILY [facility] Last Admin: 03/03/22 15:21 Dose: Not Given Documented by: Trazodone HCl (Trazodone Hcl 50 Mg Tablet) 50 mg PO BEDTIME PRN PRN Reason: Insomnia Last Admin: 03/02/22 20:57 Dose: 50 mg Documented by: Allergies Allergies Allergy/AdvReac Type Severity Reaction Status Date / Time No Known Allergies Allergy Mild NOT Verified 12/10/21 13:07 APPLICABLE Assessment & Plan Assessment & Plan (1) MDD (major depressive disorder), recurrent severe, without psychosis: Status: Acute Code(s): F33.2 - Major depressive disorder, recurrent severe without psychotic features (2) Alcohol use disorder, moderate, in early remission: Status: Acute Code(s): F10.21 - Alcohol dependence, in remission Plan 51 yo female, history of recurrent severe major depression, currently in her sixth month of acute symptoms without relief. Episode began Sep 2021, pt was using alcohol to sleep-attended RCA [place] and has had no relief since with medication changes. By history ECT has been effective and she returns for consideration for this treatment. Plan: Medical Clearance, labs, EKG for ECT are completed. First treatment 02/21/22. Continue current regime. 02/21/22 ECT #1 completed. Continue current plan of care 02/22/22 No medication changes 02/23/22 no medication changes, ECT tomorrow 02/24/22- Continue current plan of care 02/26/22- Continue current plan of care. 02/27/22- Continue current plan of care. 02/28/22-Continue current plan of care. 03/03 - ECT #5 completed. I spent ___15___ minutes with the patient and/or on the patient floor today, greater than?50% of which was spent counseling/coordinating care. Reason for contiued inpatient stay Substantial Risk for: inability to function and rapid decompensation
[2022-03-03] MEDS: traZODone HCL 50 MG TABLET PO (21:01)
[2022-03-03] MEDS: Docusate Sodium 100 MG CAPSULE PO (21:01)
[2022-03-03] MEDS: QUEtiapine Fumarate 100 MG TABLET PO (21:01)
[2022-03-04 08:13] VITALS: BP 104/54; PULSE 79; RESP 16; TEMP 36.6; O2SAT 98
[2022-03-04] MEDS: Docusate Sodium 100 MG CAPSULE PO ×2 (08:24→21:28)
[2022-03-04] MEDS: buPROPion HCl XL 300 MG TAB.ER.24H PO (08:24)
[2022-03-04] MEDS: Sertraline HCL 100 MG TABLET PO (08:24)
--- NOTE | 2022-03-04 14:47 | P.PNPSI_ITS ---
Subjective Subjective Date of Service: 03/04/22 Reason For Visit: recurrent major depression Interim History: Patient seen and discussed with team. Patient evaluated today and upon interview pt reports that ECT treatments have been okay. Says sleep and appetite are okay. Doesnt want med changes. Denies feeling depressed but states its soha hard to tell here as the hospital does not have the same stressors as home. Continues to report feeling anxious before ECT, otherwise denies SE from treatment. In the milieu, patient is safe and appropriate in behavior. Denies SI/SIB/HI up on inquiry. Denies irritability or assaultive ideation. Says she feels safe. Medication Compliance: Yes Side effects from medications: No Attending Groups: Yes Review of Systems Acute medical concerns: No Medical Review of Systems: unchanged Mental Status Exam Mental Status Exam Narrative: Patient Appearance:?casual appropriate Patient Orientation:?Person, Place, Time and Situation Level of Consciousness:?Alert Patient Behavior:?Talkative, Good Eye Contact Mood Description:?Depressed and Anxious Affect Description:?constricted, normo-intense Patient Cognition Impaired:?No Ability to Follow Directions:?Good Speech Pattern:?Spontaneous Speech Memory Description:?No impairment Hallucinations:?None Thought Process:?Rumination Thought Content:?positive for Perseveration No SI Patient Orientation:?Person, Place, Time and Situation Level of Consciousness:?Alert Patient Behavior:?Talkative and Good Eye Contact Mood Description:?Depressed and Anxious Affect Description:?Calm (more reactive) Patient Cognition Impaired:?No Ability to Follow Directions:?Good Speech Pattern:?Spontaneous Speech Diagnostics Vital Signs (24Hr): Vital Signs - 24 hr 03/03/22 14:54 03/03/22 15:15 03/03/22 18:00 Temperature 98.0 F 97.6 F 98.1 F Pulse Rate 97 99 84 Respiratory Rate 18 16 18 Blood Pressure 101/50 L 105/56 L 95/54 L Pulse Oximetry 95 90 L 97 03/04/22 08:13 Temperature 97.8 F Pulse Rate 79 Respiratory Rate 16 Blood Pressure 104/54 L Pulse Oximetry 98 BMI result Body Mass Index 32.5 Labs Results: 02/20/22 13:34 02/18/22 18:23 Imaging Radiology Impressions: ITS Impressions Chest X-Ray 02/18/22 22:10 IMPRESSION: Unremarkable examination. Medications Medications Current Medications Acetaminophen (Acetaminophen 325 Mg Tablet) 650 mg PO Q6H PRN PRN Reason: Headache/Pain Mild Scale (1-3) Acetaminophen (Acetaminophen 325 Mg Tablet) 650 mg PO ONCE PRN PRN Reason: Pain, Mild (Pain Scale 1-3) Al Hydroxide/Mg Hydroxide (Magnesium Hydrox/Alum Hydrox 30 Ml Oral.Susp) 30 ml PO Q6H PRN PRN Reason: Heartburn/Nausea Bupropion HCl (Bupropion Hcl Xl 300 Mg Tab.Er.24h) 300 mg PO DAILY [facility] Last Admin: 03/04/22 08:24 Dose: 300 mg Documented by: Docusate Sodium (Docusate Sodium 100 Mg Capsule) 100 mg PO BID [facility] Last Admin: 03/04/22 08:24 Dose: 100 mg Documented by: Hydroxyzine HCl (Hydroxyzine Hcl 25 Mg Tablet) 25 mg PO BEDTIME PRN PRN Reason: Anxiety Last Admin: 02/24/22 22:07 Dose: 25 mg Documented by: Lactated Ringer's (Lr) 1,000 mls @ 50 mls/hr IVCONT .Q20H [facility] Last Admin: 03/04/22 08:25 Dose: Not Given Documented by: Lactated Ringer's (Lr) 1,000 mls @ 50 mls/hr IVCONT .Q20H [facility] Last Admin: 03/04/22 08:25 Dose: Not Given Documented by: Magnesium Hydroxide (Milk Of Magnesia 30 Ml Oral.Susp) 30 ml PO DAILY PRN PRN Reason: Constipation Last Admin: 02/25/22 16:27 Dose: 30 ml Documented by: Nicotine Polacrilex (Nicotine Polacrilex 2 Mg Gum) 2 mg BUCCAL Q2H PRN PRN Reason: Nicotine Cravings Last Admin: 02/22/22 15:30 Dose: 2 mg Documented by: Ondansetron HCl (Ondansetron Hcl 4 Mg/2 Ml Vial) 4 mg IVPUSH ONCE PRN PRN Reason: Nausea and Vomiting Quetiapine Fumarate (Quetiapine Fumarate 100 Mg Tablet) 100 mg PO BEDTIME PRN PRN Reason: insomnia Last Admin: 03/03/22 21:01 Dose: 100 mg Documented by: Quetiapine Fumarate (Quetiapine Fumarate 25 Mg Tablet) 25 mg PO MoWeFr@0530 [facility] Last Admin: 03/03/22 05:40 Dose: 25 mg Documented by: Sertraline HCl (Sertraline Hcl 100 Mg Tablet) 100 mg PO DAILY [facility] Last Admin: 03/04/22 08:24 Dose: 100 mg Documented by: Trazodone HCl (Trazodone Hcl 50 Mg Tablet) 50 mg PO BEDTIME PRN PRN Reason: Insomnia Last Admin: 03/03/22 21:01 Dose: 50 mg Documented by: Allergies Allergies Allergy/AdvReac Type Severity Reaction Status Date / Time No Known Allergies Allergy Mild NOT Verified 12/10/21 13:07 APPLICABLE Assessment & Plan Assessment & Plan (1) MDD (major depressive disorder), recurrent severe, without psychosis: Status: Acute Code(s): F33.2 - Major depressive disorder, recurrent severe without psychotic features (2) Alcohol use disorder, moderate, in early remission: Status: Acute Code(s): F10.21 - Alcohol dependence, in remission Plan 51 yo female, history of recurrent severe major depression, currently in her sixth month of acute symptoms without relief. Episode began Sep 2021, pt was using alcohol to sleep-attended RCA [place] and has had no relief since with medication changes. By history ECT has been effective and she returns for consideration for this treatment. Plan: Medical Clearance, labs, EKG for ECT are completed. First treatment 02/21/22. Continue current regime. 02/21/22 ECT #1 completed. Continue current plan of care 02/22/22 No medication changes 02/23/22 no medication changes, ECT tomorrow 02/24/22- Continue current plan of care 02/26/22- Continue current plan of care. 02/27/22- Continue current plan of care. 02/28/22-Continue current plan of care. 03/03 - ECT #5 completed. 03/04- Continue current plan of care. I spent minutes with the patient and/or on the patient floor today, greater than?50% of which was spent counseling/coordinating care. Reason for contiued inpatient stay Substantial Risk for: med/psych decompensation
[2022-03-04 20:40] VITALS: BP 113/63; PULSE 88; RESP 18; TEMP 37; O2SAT 97
[2022-03-04] MEDS: QUEtiapine Fumarate 100 MG TABLET PO (21:28)
[2022-03-04] MEDS: traZODone HCL 50 MG TABLET PO (21:28)
[2022-03-05] VITALS (12 sets, daily range): BP systolic 108–172; BP diastolic 65–83; PULSE 80–92; RESP 16–18; TEMP 36.6–37.3; O2SAT 91–98
[2022-03-05] MEDS: QUEtiapine Fumarate 25 MG TABLET PO (06:13)
--- NOTE | 2022-03-05 06:50 | P.CONAN_ITS ---
[facility] Active Problems Active Problems: All Active Problems (Updated 02/20/22 @ 16:22 by Mojgan Mena MD) Pre-op evaluation (Acute) Leukocytosis (Acute) Alcohol use disorder, moderate, in early remission (Acute) MDD (major depressive disorder), recurrent severe, without psychosis (Acute) HUMBERTO (generalized anxiety disorder) (Acute) Past Medical History Medical History Basal cell carcinoma H/O hidradenitis suppurativa History of fracture of left ankle Family History Family history of problems with anesthesia: No Surgical History History of Problems with Anesthesia: No Social History Social History Household Members: None Household Members Other:: N/A Housing: Condominium Do you presently have visiting nurse or other home services: No Unable to assess alcohol history related to: Unable to respond Patient Tobacco Use Status: Current everyday Tobacco user Tobacco use type: Cigarette Cigarette Packs Per Day: 0.25 Cigarettes Per Day: 5.0 Smoked in Last 30 Days: Yes e-Cigarette/Vaping Use: Currently Using Patient Interested in Nicotine Replacement: Yes Patient Given Instructions on How to Stop Smoking: No Use of substances other than those prescribed or required for medical reasons: Yes Substance Use Type: Marijuana and Caffiene Substance Use Frequency: Occasionally Last Used Substance Other:: July 2021 Currently Displaying Signs/Symptoms of Drug Intoxication Withdrawal: No Any prior treatment program specific to substance use: Yes ([facility]) Have you been hit, kicked, punched, or otherwise hurt by someone within the past year? If so, by whom?: No Do you feel safe in your current relationship?: No Is there a partner from a previous relationship who is making you feel unsafe now?: No Are you made to feel afraid or neglected: No Are you DNR?: No Advance Directives: No Advance Directives Information Provided: No Guardian: No Do you have thoughts of harming others: None Do you have a plan to hurt others: No Plan Recently lost weight without trying: No Nutrition Risks: No Nutritional Risk Patient : No : No Poor oral hygiene: No service: No Sexual orientation: Straight/Heterosexual Meds Allergies Allergy/AdvReac Type Severity Reaction Status Date / Time No Known Allergies Allergy Mild NOT Verified 03/05/22 06:35 APPLICABLE Active Medications: Current Medications Acetaminophen (Acetaminophen 325 Mg Tablet) 650 mg PO Q6H PRN PRN Reason: Headache/Pain Mild Scale (1-3) Acetaminophen (Acetaminophen 325 Mg Tablet) 650 mg PO ONCE PRN PRN Reason: Pain, Mild (Pain Scale 1-3) Al Hydroxide/Mg Hydroxide (Magnesium Hydrox/Alum Hydrox 30 Ml Oral.Susp) 30 ml PO Q6H PRN PRN Reason: Heartburn/Nausea Bupropion HCl (Bupropion Hcl Xl 300 Mg Tab.Er.24h) 300 mg PO DAILY [facility] Last Admin: 03/04/22 08:24 Dose: 300 mg Documented by: Docusate Sodium (Docusate Sodium 100 Mg Capsule) 100 mg PO BID [facility] Last Admin: 03/04/22 21:28 Dose: 100 mg Documented by: Hydroxyzine HCl (Hydroxyzine Hcl 25 Mg Tablet) 25 mg PO BEDTIME PRN PRN Reason: Anxiety Last Admin: 02/24/22 22:07 Dose: 25 mg Documented by: Lactated Ringer's (Lr) 1,000 mls @ 50 mls/hr IVCONT .Q20H [facility] Last Admin: 03/05/22 06:11 Dose: Not Given Documented by: Lactated Ringer's (Lr) 1,000 mls @ 50 mls/hr IVCONT .Q20H [facility] Last Admin: 03/05/22 06:12 Dose: Not Given Documented by: Magnesium Hydroxide (Milk Of Magnesia 30 Ml Oral.Susp) 30 ml PO DAILY PRN PRN Reason: Constipation Last Admin: 02/25/22 16:27 Dose: 30 ml Documented by: Nicotine Polacrilex (Nicotine Polacrilex 2 Mg Gum) 2 mg BUCCAL Q2H PRN PRN Reason: Nicotine Cravings Last Admin: 02/22/22 15:30 Dose: 2 mg Documented by: Ondansetron HCl (Ondansetron Hcl 4 Mg/2 Ml Vial) 4 mg IVPUSH ONCE PRN PRN Reason: Nausea and Vomiting Quetiapine Fumarate (Quetiapine Fumarate 100 Mg Tablet) 100 mg PO BEDTIME PRN PRN Reason: insomnia Last Admin: 03/04/22 21:28 Dose: 100 mg Documented by: Quetiapine Fumarate (Quetiapine Fumarate 25 Mg Tablet) 25 mg PO MoWeFr@0530 [facility] Last Admin: 03/05/22 06:13 Dose: 25 mg Documented by: Sertraline HCl (Sertraline Hcl 100 Mg Tablet) 100 mg PO DAILY [facility] Last Admin: 03/04/22 08:24 Dose: 100 mg Documented by: Trazodone HCl (Trazodone Hcl 50 Mg Tablet) 50 mg PO BEDTIME PRN PRN Reason: Insomnia Last Admin: 03/04/22 21:28 Dose: 50 mg Documented by: Home Medications Medication Instructions Recorded Confirmed Last Taken Type bupropion HCl 150 mg 24 hr tablet, 300 mg PO QAM 02/18/22 02/18/22 Unknown History extended release quetiapine 100 mg tablet 1 - 3 tab PO BEDTIME PRN 02/18/22 02/18/22 Unknown History sertraline 100 mg tablet 100 mg PO QAM 02/18/22 02/18/22 Unknown History Exam Exam Date and Time: March 05, 2022 0650 Height,Weight and Vital Signs: Height 5 ft 5 in Weight 88.8 kg Last Vital Signs Temp 99.2 F 03/05/22 06:36 Pulse 85 03/05/22 06:36 Resp 16 03/05/22 06:36 BP 112/67 03/05/22 06:36 Pulse Ox 98 03/05/22 06:36 Pertinent Lab Results Pertinent Lab Results: Laboratory Tests 02/18/22 02/18/22 02/18/22 18:23 18:23 18:23 WBC 19.1 H RBC 4.54 Hgb 13.3 Hct 43.8 MCV 96.5 MCH 29.3 MCHC 30.4 L RDW 12.8 Plt Count 385 MPV 9.5 Immature Gran % (Auto) 0.8 H Neut % (Auto) 71.9 Lymph % (Auto) 18.2 L [place] % (Auto) 6.2 Eos % (Auto) 2.4 Baso % (Auto) 0.5 Lymph # (Auto) 3.5 [place] # (Auto) 1.2 Eos # (Auto) 0.5 H Baso # (Auto) 0.1 Abs Immat Gran (auto) 0.16 H Absolute Neuts (auto) 13.8 H Absolute Nucleated RBC 0.000 Nucleated RBC % (auto) 0.0 Sodium 137 Potassium 4.4 Chloride 104 Carbon Dioxide 20 L Anion Gap 17 BUN 10 Creatinine 0.85 Estim Creat Clear Calc 87.0 Estimated GFR > 60 Random Glucose 102 Estimat Average Glucose Hemoglobin A1c % Lactic Acid Calcium 10.2 Magnesium 2.2 Total Bilirubin 0.4 AST 24 ALT 34 H Alkaline Phosphatase 82 Total Protein 7.4 Albumin 4.3 Triglycerides Cholesterol LDL Cholesterol, Calc HDL Cholesterol Vitamin B12 Folate TSH Free T4 Urine Color Urine Appearance Urine pH Ur Specific [place] Urine Protein Urine Glucose (UA) Urine Ketones Urine Blood Urine Nitrite Ur Leukocyte Esterase Urine RBC Urine WBC Ur Squamous Epith Cells Urine Bacteria Urine Opiates Screen Urine Fentanyl Screen Ur Barbiturates Screen Ur Phencyclidine Scrn Ur Amphetamines Screen U Benzodiazepines Scrn Urine Cocaine Screen U Marijuana (THC) Screen Ethyl Alcohol < 10 COVID-19 ([facility]) COVID-19 27 [place] 02/18/22 02/18/22 02/18/22 18:56 20:04 20:04 WBC RBC Hgb Hct MCV MCH MCHC RDW Plt Count MPV Immature Gran % (Auto) Neut % (Auto) Lymph % (Auto) [place] % (Auto) Eos % (Auto) Baso % (Auto) Lymph # (Auto) [place] # (Auto) Eos # (Auto) Baso # (Auto) Abs Immat Gran (auto) Absolute Neuts (auto) Absolute Nucleated RBC Nucleated RBC % (auto) Sodium Potassium Chloride Carbon Dioxide Anion Gap BUN Creatinine Estim Creat Clear Calc Estimated GFR Random Glucose Estimat Average Glucose Hemoglobin A1c % Lactic Acid Calcium Magnesium Total Bilirubin AST ALT Alkaline Phosphatase Total Protein Albumin Triglycerides Cholesterol LDL Cholesterol, Calc HDL Cholesterol Vitamin B12 Folate TSH Free T4 Urine Color YELLOW Urine Appearance CLEAR Urine pH 5.5 Ur Specific [place] 1.020 Urine Protein NEG Urine Glucose (UA) NEG Urine Ketones NEG Urine Blood 2+ H Urine Nitrite NEG Ur Leukocyte Esterase NEG Urine RBC 10-14 H Urine WBC 0 Ur Squamous Epith Cells 2+ Urine Bacteria 3+ Urine Opiates Screen Not Detected Urine Fentanyl Screen Not Detected Ur Barbiturates Screen Not Detected Ur Phencyclidine Scrn Not Detected Ur Amphetamines Screen Not Detected U Benzodiazepines Scrn Not Detected Urine Cocaine Screen Not Detected U Marijuana (THC) Screen Not Detected Ethyl Alcohol COVID-19 ([facility]ILIANA) Negative COVID-19 [employer] Com See Note 02/19/22 02/20/22 02/20/22 01:48 08:01 08:01 WBC RBC Hgb Hct MCV MCH MCHC RDW Plt Count MPV Immature Gran % (Auto) Neut % (Auto) Lymph % (Auto) [place] % (Auto) Eos % (Auto) Baso % (Auto) Lymph # (Auto) [place] # (Auto) Eos # (Auto) Baso # (Auto) Abs Immat Gran (auto) Absolute Neuts (auto) Absolute Nucleated RBC Nucleated RBC % (auto) Sodium Potassium Chloride Carbon Dioxide Anion Gap BUN Creatinine Estim Creat Clear Calc Estimated GFR Random Glucose Estimat Average Glucose 105 Hemoglobin A1c % 5.3 Lactic Acid 0.9 Calcium Magnesium 2.3 Total Bilirubin AST ALT Alkaline Phosphatase Total Protein Albumin Triglycerides 151 Cholesterol 242 LDL Cholesterol, Calc 159 HDL Cholesterol 53 Vitamin B12 Folate TSH 2.34 Free T4 0.90 Urine Color Urine Appearance Urine pH Ur Specific [place] Urine Protein Urine Glucose (UA) Urine Ketones Urine Blood Urine Nitrite Ur Leukocyte Esterase Urine RBC Urine WBC Ur Squamous Epith Cells Urine Bacteria Urine Opiates Screen Urine Fentanyl Screen Ur Barbiturates Screen Ur Phencyclidine Scrn Ur Amphetamines Screen U Benzodiazepines Scrn Urine Cocaine Screen U Marijuana (THC) Screen Ethyl Alcohol COVID-19 ([facility]IL[facility]NA) COVID-19 Clin Com 02/20/22 02/20/22 02/28/22 08:01 13:34 07:00 WBC 15.9 H RBC 4.51 Hgb 13.0 Hct 40.3 MCV 89.4 D MCH 28.8 MCHC 32.3 RDW 12.6 Plt Count 375 MPV 8.8 L Immature Gran % (Auto) 0.6 H Neut % (Auto) 72.0 Lymph % (Auto) 17.2 L [place] % (Auto) 6.1 Eos % (Auto) 3.5 Baso % (Auto) 0.6 Lymph # (Auto) 2.7 [place] # (Auto) 1.0 Eos # (Auto) 0.6 H Baso # (Auto) 0.1 Abs Immat Gran (auto) 0.10 H Absolute Neuts (auto) 11.5 H Absolute Nucleated RBC 0.000 Nucleated RBC % (auto) 0.0 Sodium Potassium Chloride Carbon Dioxide Anion Gap BUN Creatinine Estim Creat Clear Calc Estimated GFR Random Glucose Estimat Average Glucose Hemoglobin A1c % Lactic Acid Calcium Magnesium Total Bilirubin AST ALT Alkaline Phosphatase Total Protein Albumin Triglycerides Cholesterol LDL Cholesterol, Calc HDL Cholesterol Vitamin B12 415 Folate 14.2 TSH Free T4 Urine Color Urine Appearance Urine pH Ur Specific [place] Urine Protein Urine Glucose (UA) Urine Ketones Urine Blood Urine Nitrite Ur Leukocyte Esterase Urine RBC Urine WBC Ur Squamous Epith Cells Urine Bacteria Urine Opiates Screen Urine Fentanyl Screen Ur Barbiturates Screen Ur Phencyclidine Scrn Ur Amphetamines Screen U Benzodiazepines Scrn Urine Cocaine Screen U Marijuana (THC) Screen Ethyl Alcohol COVID-19 ([facility]NA) Negative COVID-19 Clin Com See Note Airway Mallampati Class: II TM Dist: >3cm Neck ROM: Full Heart: rrr Lungs: cta Assessment and Plan Assessment Anesthesia Assessment: Anesthesia Plan Discussed and Chart Reviewed Final Anesthetic Review Family History of Problems with Anesthesia: No History of Problems with Anesthesia: No NPO: Yes ASA Class: III Final Preanesthetic Review: No Changes in Pt Med Stat, Meds/Allgs Chart Reviewed and Consent Obtained/Reviewed Patient Risk: Intermediate Procedure Risk: Intermediate Anesthetic Plan Anesthetic Plan: GA Disposition: Standard PACU
[2022-03-05] MEDS: Lactated Ringers 1,000 ML 50 ML IVCONT (06:58)
--- NOTE | 2022-03-05 07:30 | MHC.SHP ---
Pre-Procedural Eval Section A Date of Service: 03/05/22 The patient is an INPATIENT: Yes Changes since office visit: No Cold of Flu in the past 2 weeks, No New Medical Problems, No Changes in Medication and No Patient answered all questions The History & Physical has been completed within 30 days and I have reviewed it.: Yes Section B Chief Complaint: recurrent major depression Allergies: Allergies Allergy/AdvReac Type Severity Reaction Status Date / Time No Known Allergies Allergy Mild NOT Verified 03/05/22 06:35 APPLICABLE Plan I have reviewed the history and physical and performed a pertinent physical examination on my patient. No changes have occurred unless specified.
--- NOTE | 2022-03-05 07:38 | HO.ECTPROC ---
ECT Procedure Note Diagnosis/Treatment Date of Service: 03/05/22 Diagnosis: Major Depressive Disorder Previous ECT Date: 02/28/22 Current Treatment Number: 5 Interval Clinical Notes: The patient's mood has improved, her affect is brighter but she feels still dysphoric, less anxious today, ECT Settings Device: THYMATRON DGx Electrode Placement: Right Unilateral Program/Pulse Width: 0.50 Energy Percent: 100 Seizure Duration By EEG (in seconds): 37 By Motor Observation (in seconds): 25 Medications Administration General Anesthetic: Etomidate (12) Muscle Relaxant: Succinylcholine (100) Ancillary Medications Analgesics: Torodol - Pre ECT Anti-emetics: Zofran - Pre ECT Miscillaneous Medications: Propofol and Midazolam Airway Management Airway Management: Bag Mask Ventilation Treatment Recommendations No Changes Recommended: No change Pt Tolerated Procedure w/o Issue: Yes
[2022-03-05] MEDS: Sertraline HCL 100 MG TABLET PO (09:23)
[2022-03-05] MEDS: buPROPion HCl XL 300 MG TAB.ER.24H PO (09:23)
[2022-03-05] MEDS: Docusate Sodium 100 MG CAPSULE PO ×2 (09:23→21:03)
--- NOTE | 2022-03-05 18:24 | HO.PSYCHPN ---
Subjective Subjective Date of Service: 03/05/22 Reason For Visit: recurrent major depression Interim History: Patient seen and discussed with team. Patient evaluated today and upon interview pt reports she felt a little nervous prior to ECT treatment, but she is doing okay. Sleeping okay. Appetite is good. Denies having questions or concerns. In the milieu, patient is safe and appropriate in behavior, reading her book. Denies SI/SIB/HI upon inquiry. Denies irritability or assaultive ideation. Says she feels safe. Medication Compliance: Yes Side effects from medications: No Attending Groups: Yes Review of Systems Acute medical concerns: No Medical Review of Systems: unchanged Mental Status Exam Mental Status Exam Narrative: Patient Appearance:?casual appropriate Patient Orientation:?Person, Place, Time and Situation Level of Consciousness:?Alert Patient Behavior:?Talkative, Good Eye Contact Mood Description:?Depressed and Anxious Affect Description:?constricted, normo-intense Patient Cognition Impaired:?No Ability to Follow Directions:?Good Speech Pattern:?Spontaneous Speech Memory Description:?No impairment Hallucinations:?None Thought Process:?Rumination Thought Content:?positive for Perseveration No SI Patient Orientation:?Person, Place, Time and Situation Level of Consciousness:?Alert Patient Behavior:?Talkative and Good Eye Contact Mood Description:?Depressed and Anxious Affect Description:?Calm (more reactive) Patient Cognition Impaired:?No Ability to Follow Directions:?Good Speech Pattern:?Spontaneous Speech Diagnostics Vital Signs (24Hr): Vital Signs - 24 hr 03/05/22 06:36 03/05/22 07:45 03/05/22 07:50 Temperature 99.2 F 98.4 F Pulse Rate 85 89 87 Respiratory Rate 16 16 16 Blood Pressure 112/67 172/83 H 119/74 Pulse Oximetry 98 92 91 L 03/05/22 07:55 03/05/22 08:00 03/05/22 08:15 Temperature Pulse Rate 87 86 88 Respiratory Rate 16 16 16 Blood Pressure 117/73 108/78 130/80 Pulse Oximetry 92 93 95 03/05/22 08:30 03/05/22 08:51 03/05/22 09:00 Temperature 98.5 F 98.1 F 98.1 F Pulse Rate 86 81 81 Respiratory Rate 16 16 16 Blood Pressure 121/73 115/65 115/65 Pulse Oximetry 95 96 96 03/05/22 20:13 Temperature 98.0 F Pulse Rate 92 Respiratory Rate 18 Blood Pressure 126/67 Pulse Oximetry 96 BMI result Body Mass Index 32.5 Labs Results: 02/20/22 13:34 02/18/22 18:23 Imaging Radiology Impressions: ITS Impressions Chest X-Ray 02/18/22 22:10 IMPRESSION: Unremarkable examination. Medications Medications Current Medications Acetaminophen (Acetaminophen 325 Mg Tablet) 650 mg PO Q6H PRN PRN Reason: Headache/Pain Mild Scale (1-3) Acetaminophen (Acetaminophen 325 Mg Tablet) 650 mg PO ONCE PRN PRN Reason: Pain, Mild (Pain Scale 1-3) Al Hydroxide/Mg Hydroxide (Magnesium Hydrox/Alum Hydrox 30 Ml Oral.Susp) 30 ml PO Q6H PRN PRN Reason: Heartburn/Nausea Bupropion HCl (Bupropion Hcl Xl 300 Mg Tab.Er.24h) 300 mg PO DAILY [facility] Last Admin: 03/05/22 09:23 Dose: 300 mg Documented by: Docusate Sodium (Docusate Sodium 100 Mg Capsule) 100 mg PO BID [facility] [place] Last Admin: 03/05/22 21:03 Dose: 100 mg Documented by: Hydroxyzine HCl (Hydroxyzine Hcl 25 Mg Tablet) 25 mg PO BEDTIME PRN PRN Reason: Anxiety Last Admin: 02/24/22 22:07 Dose: 25 mg Documented by: Magnesium Hydroxide (Milk Of Magnesia 30 Ml Oral.Susp) 30 ml PO DAILY PRN PRN Reason: Constipation Last Admin: 02/25/22 16:27 Dose: 30 ml Documented by: Nicotine Polacrilex (Nicotine Polacrilex 2 Mg Gum) 2 mg BUCCAL Q2H PRN PRN Reason: Nicotine Cravings Last Admin: 02/22/22 15:30 Dose: 2 mg Documented by: Ondansetron HCl (Ondansetron Hcl 4 Mg/2 Ml Vial) 4 mg IVPUSH ONCE PRN PRN Reason: Nausea and Vomiting Quetiapine Fumarate (Quetiapine Fumarate 100 Mg Tablet) 100 mg PO BEDTIME PRN PRN Reason: insomnia Last Admin: 03/05/22 21:03 Dose: 100 mg Documented by: Quetiapine Fumarate (Quetiapine Fumarate 25 Mg Tablet) 25 mg PO MoWeFr@0530 [facility] [place] Last Admin: 03/05/22 06:13 Dose: 25 mg Documented by: Sertraline HCl (Sertraline Hcl 100 Mg Tablet) 100 mg PO DAILY [facility] Last Admin: 03/05/22 09:23 Dose: 100 mg Documented by: Trazodone HCl (Trazodone Hcl 50 Mg Tablet) 50 mg PO BEDTIME PRN PRN Reason: Insomnia Last Admin: 03/05/22 21:03 Dose: 50 mg Documented by: Allergies Allergies Allergy/AdvReac Type Severity Reaction Status Date / Time No Known Allergies Allergy Mild NOT Verified 03/05/22 06:35 APPLICABLE Assessment & Plan Assessment & Plan (1) MDD (major depressive disorder), recurrent severe, without psychosis: Status: Acute Code(s): F33.2 - Major depressive disorder, recurrent severe without psychotic features (2) Alcohol use disorder, moderate, in early remission: Status: Acute Code(s): F10.21 - Alcohol dependence, in remission Plan 51 yo female, history of recurrent severe major depression, currently in her sixth month of acute symptoms without relief. Episode began Sep 2021, pt was using alcohol to sleep-attended RCA [place] and has had no relief since with medication changes. By history ECT has been effective and she returns for consideration for this treatment. Plan: Medical Clearance, labs, EKG for ECT are completed. First treatment 02/21/22. Continue current regime. 02/21/22 ECT #1 completed. Continue current plan of care 02/22/22 No medication changes 02/23/22 no medication changes, ECT tomorrow 02/24/22- Continue current plan of care 02/26/22- Continue current plan of care. 02/27/22- Continue current plan of care. 02/28/22-Continue current plan of care. 03/03 - ECT #5 completed. 03/04- Continue current plan of care. 03/05- ECT #6 completed I spent minutes with the patient and/or on the patient floor today, greater than?50% of which was spent counseling/coordinating care. Patient educated on: therapeutic strategies Reason for contiued inpatient stay Substantial Risk for: med/psych decompensation
[2022-03-05] MEDS: traZODone HCL 50 MG TABLET PO (21:03)
[2022-03-05] MEDS: QUEtiapine Fumarate 100 MG TABLET PO (21:03)
[2022-03-06 07:00] VITALS: BMI 33.1
[2022-03-06 08:40] VITALS: BP 106/62; PULSE 77; RESP 16; TEMP 37.1; O2SAT 97
[2022-03-06] MEDS: Docusate Sodium 100 MG CAPSULE PO ×2 (08:40→20:58)
[2022-03-06] MEDS: Sertraline HCL 100 MG TABLET PO (08:40)
[2022-03-06] MEDS: buPROPion HCl XL 300 MG TAB.ER.24H PO (08:40)
--- NOTE | 2022-03-06 12:16 | HO.PSYCHPN ---
Subjective Subjective Date of Service: 03/06/22 Reason For Visit: recurrent major depression Subjective Notes: Conditional Voluntary Interim History: Patient seen and discussed with team. Patient reports feeling anxious, depressed, not suicidal. Pt reports she thikns she has had 3 ECT tx but that was told she has had more than that. So, far pt reports she has not noticed much difference in mood. Pt reports eating and sleeping well. Pt appears somewhat anxious. She would like to know how many more ECT tx prior to going home. Per nursing, pt has been visible, somewhat confused yesterday after ECT- which is not uncommon. Pt with some confusion as to total number of tx she has had on the unit. Medication Compliance: Yes Side effects from medications: No Review of Systems Review of Systems Yes all other systems are reviewed and are negative Musculoskeletal: Reports other (R Foot pain, s/p injury 2019) Psychiatric: Reports abnormal sleep pattern, Reports anxiety, Reports depression, Reports difficulty concentrating, Reports hopelessness, Reports irritability, Reports anhedonia, Reports mood swings and Reports suicidal ideation (denies) Mental Status Exam Mental Status Exam Narrative: Appearance: casually groomed, good hygiene, somewhat anxious Behavior: cooperative, confused as to who she should be seeing for provider Psychomotor: no agitation or retardation noted, fidgety Speech: clear, delayed in response, soft, spontaneous Tc: feeling depressed, no signs of psychosis, some poverty of thought Tp: mostly linear SI: none HI: none VH/AH: none Delusions: none Insight/judgment: fair x 2. Memory/cog: alert, oriented x 3. may benefit from MOCA. Diagnostics Vital Signs (24Hr): Vital Signs - 24 hr 03/05/22 20:13 03/06/22 08:40 Temperature 98.0 F 98.7 F Pulse Rate 92 77 Respiratory Rate 18 16 Blood Pressure 126/67 106/62 Pulse Oximetry 96 97 BMI result Body Mass Index 32.5 Labs Results: 02/20/22 13:34 02/18/22 18:23 Imaging Radiology Impressions: ITS Impressions Chest X-Ray 02/18/22 22:10 IMPRESSION: Unremarkable examination. Medications Medications Current Medications Acetaminophen (Acetaminophen 325 Mg Tablet) 650 mg PO Q6H PRN PRN Reason: Headache/Pain Mild Scale (1-3) Acetaminophen (Acetaminophen 325 Mg Tablet) 650 mg PO ONCE PRN PRN Reason: Pain, Mild (Pain Scale 1-3) Al Hydroxide/Mg Hydroxide (Magnesium Hydrox/Alum Hydrox 30 Ml Oral.Susp) 30 ml PO Q6H PRN PRN Reason: Heartburn/Nausea Bupropion HCl (Bupropion Hcl Xl 300 Mg Tab.Er.24h) 300 mg PO DAILY [facility] Last Admin: 03/06/22 08:40 Dose: 300 mg Documented by: Docusate Sodium (Docusate Sodium 100 Mg Capsule) 100 mg PO BID [facility] Last Admin: 03/06/22 08:40 Dose: 100 mg Documented by: Hydroxyzine HCl (Hydroxyzine Hcl 25 Mg Tablet) 25 mg PO BEDTIME PRN PRN Reason: Anxiety Last Admin: 02/24/22 22:07 Dose: 25 mg Documented by: Magnesium Hydroxide (Milk Of Magnesia 30 Ml Oral.Susp) 30 ml PO DAILY PRN PRN Reason: Constipation Last Admin: 02/25/22 16:27 Dose: 30 ml Documented by: Nicotine Polacrilex (Nicotine Polacrilex 2 Mg Gum) 2 mg BUCCAL Q2H PRN PRN Reason: Nicotine Cravings Last Admin: 02/22/22 15:30 Dose: 2 mg Documented by: Ondansetron HCl (Ondansetron Hcl 4 Mg/2 Ml Vial) 4 mg IVPUSH ONCE PRN PRN Reason: Nausea and Vomiting Quetiapine Fumarate (Quetiapine Fumarate 100 Mg Tablet) 100 mg PO BEDTIME PRN PRN Reason: insomnia Last Admin: 03/05/22 21:03 Dose: 100 mg Documented by: Quetiapine Fumarate (Quetiapine Fumarate 25 Mg Tablet) 25 mg PO MoWeFr@0530 [facility] Last Admin: 03/05/22 06:13 Dose: 25 mg Documented by: Sertraline HCl (Sertraline Hcl 100 Mg Tablet) 100 mg PO DAILY [facility] Last Admin: 03/06/22 08:40 Dose: 100 mg Documented by: Trazodone HCl (Trazodone Hcl 50 Mg Tablet) 50 mg PO BEDTIME PRN PRN Reason: Insomnia Last Admin: 03/05/22 21:03 Dose: 50 mg Documented by: Allergies Allergies Allergy/AdvReac Type Severity Reaction Status Date / Time No Known Allergies Allergy Mild NOT Verified 03/05/22 06:35 APPLICABLE Assessment & Plan Assessment & Plan (1) MDD (major depressive disorder), recurrent severe, without psychosis: Status: Acute Code(s): F33.2 - Major depressive disorder, recurrent severe without psychotic features (2) Alcohol use disorder, moderate, in early remission: Status: Acute Code(s): F10.21 - Alcohol dependence, in remission Plan 51 yo female, history of recurrent severe major depression, currently in her sixth month of acute symptoms without relief. Episode began Sep 2021, pt was using alcohol to sleep-attended RCA [place] and has had no relief since with medication changes. By history ECT has been effective and she returns for consideration for this treatment. Plan: Medical Clearance, labs, EKG for ECT are completed. First treatment 02/21/22. Continue current regime. 02/21/22 ECT #1 completed. Continue current plan of care 02/22/22 No medication changes 02/23/22 no medication changes, ECT tomorrow 02/24/22- Continue current plan of care 02/26/22- Continue current plan of care. 02/27/22- Continue current plan of care. 02/28/22-Continue current plan of care. 03/03 - ECT #5 completed. 03/04- Continue current plan of care. 03/05- ECT #6 completed 03/06- continue current medications. I spent minutes with the patient and/or on the patient floor today, greater than?50% of which was spent counseling/coordinating care. Reason for contiued inpatient stay Substantial Risk for: inability to function
[2022-03-06 20:51] VITALS: BP 118/73; PULSE 83; RESP 18; TEMP 36.2; O2SAT 98
[2022-03-06] MEDS: traZODone HCL 50 MG TABLET PO (20:58)
[2022-03-06] MEDS: QUEtiapine Fumarate 100 MG TABLET PO (20:58)
[2022-03-07] MEDS: QUEtiapine Fumarate 25 MG TABLET PO (05:34)
[2022-03-07 05:51] VITALS: BP 132/73; PULSE 81; RESP 18; TEMP 36.6; O2SAT 99
[2022-03-07] MEDS: buPROPion HCl XL 300 MG TAB.ER.24H PO (09:29)
[2022-03-07] MEDS: Sertraline HCL 100 MG TABLET PO (09:29)
[2022-03-07] MEDS: Docusate Sodium 100 MG CAPSULE PO ×2 (09:29→21:10)
--- NOTE | 2022-03-07 09:35 | HO.PSYCHPN ---
Subjective Subjective Date of Service: 03/07/22 Reason For Visit: recurrent major depression Subjective Notes: Conditional Voluntary Interim History: Patient seen and discussed with team. Pt appears with brighter affect and has been more visible in the unit, able to attend groups. She is somewhat fidgety, appears slightly calmer today. She describes mood as okay. She reports she slept well. She is eating better. She denies SI/HI. She was informed that Dr. Herrera to discuss one more ECT tx on Thursday with d/c on Thursday. Pt confused as to how many treatments and how long she's been on the unit, needs to see hospital wrist band to orient herself. Medication Compliance: Yes Review of Systems Review of Systems Yes all other systems are reviewed and are negative Musculoskeletal: Reports other (R Foot pain, s/p injury 2019) Psychiatric: Reports abnormal sleep pattern, Reports anxiety, Reports depression, Reports difficulty concentrating, Reports hopelessness, Reports irritability, Reports anhedonia, Reports mood swings and Reports suicidal ideation (denies) Mental Status Exam Mental Status Exam Narrative: Appearance: casually groomed, good hygiene, somewhat anxious Behavior: cooperative, confused as to who she should be seeing for provider Psychomotor: no agitation or retardation noted, fidgety Speech: clear, delayed in response, soft, spontaneous Tc: feeling depressed, no signs of psychosis, some poverty of thought Tp: mostly linear SI: none HI: none VH/AH: none Delusions: none Insight/judgment: fair x 2. Memory/cog: alert, oriented x 3. may benefit from MOCA. Diagnostics Vital Signs (24Hr): Vital Signs - 24 hr 03/06/22 20:51 03/07/22 05:51 03/07/22 09:36 Temperature 97.2 F 97.9 F Pulse Rate 83 81 74 Respiratory Rate 18 18 20 Blood Pressure 118/73 132/73 118/60 Pulse Oximetry 98 99 94 BMI result Body Mass Index 33.1 Labs Results: 02/20/22 13:34 02/18/22 18:23 Imaging Radiology Impressions: ITS Impressions Chest X-Ray 02/18/22 22:10 IMPRESSION: Unremarkable examination. Medications Medications Current Medications Acetaminophen (Acetaminophen 325 Mg Tablet) 650 mg PO Q6H PRN PRN Reason: Headache/Pain Mild Scale (1-3) Acetaminophen (Acetaminophen 325 Mg Tablet) 650 mg PO ONCE PRN PRN Reason: Pain, Mild (Pain Scale 1-3) Al Hydroxide/Mg Hydroxide (Magnesium Hydrox/Alum Hydrox 30 Ml Oral.Susp) 30 ml PO Q6H PRN PRN Reason: Heartburn/Nausea Bupropion HCl (Bupropion Hcl Xl 300 Mg Tab.Er.24h) 300 mg PO DAILY [facility] Last Admin: 03/07/22 09:29 Dose: 300 mg Documented by: Docusate Sodium (Docusate Sodium 100 Mg Capsule) 100 mg PO BID [facility] Last Admin: 03/07/22 09:29 Dose: 100 mg Documented by: Hydroxyzine HCl (Hydroxyzine Hcl 25 Mg Tablet) 25 mg PO BEDTIME PRN PRN Reason: Anxiety Last Admin: 02/24/22 22:07 Dose: 25 mg Documented by: Magnesium Hydroxide (Milk Of Magnesia 30 Ml Oral.Susp) 30 ml PO DAILY PRN PRN Reason: Constipation Last Admin: 02/25/22 16:27 Dose: 30 ml Documented by: Nicotine Polacrilex (Nicotine Polacrilex 2 Mg Gum) 2 mg BUCCAL Q2H PRN PRN Reason: Nicotine Cravings Last Admin: 02/22/22 15:30 Dose: 2 mg Documented by: Ondansetron HCl (Ondansetron Hcl 4 Mg/2 Ml Vial) 4 mg IVPUSH ONCE PRN PRN Reason: Nausea and Vomiting Quetiapine Fumarate (Quetiapine Fumarate 100 Mg Tablet) 100 mg PO BEDTIME PRN PRN Reason: insomnia Last Admin: 03/06/22 20:58 Dose: 100 mg Documented by: Quetiapine Fumarate (Quetiapine Fumarate 25 Mg Tablet) 25 mg PO [id number]@[id number] [facility] Last Admin: 03/07/22 05:34 Dose: 25 mg Documented by: Sertraline HCl (Sertraline Hcl 100 Mg Tablet) 100 mg PO DAILY [facility] Last Admin: 03/07/22 09:29 Dose: 100 mg Documented by: Thiamine HCl (Thiamine Hcl 100 Mg Tablet) 100 mg PO DAILY [facility] Trazodone HCl (Trazodone Hcl 50 Mg Tablet) 50 mg PO BEDTIME PRN PRN Reason: Insomnia Last Admin: 03/06/22 20:58 Dose: 50 mg Documented by: Allergies Allergies Allergy/AdvReac Type Severity Reaction Status Date / Time No Known Allergies Allergy Mild NOT Verified 03/05/22 06:35 APPLICABLE Assessment & Plan Assessment & Plan (1) MDD (major depressive disorder), recurrent severe, without psychosis: Status: Acute Code(s): F33.2 - Major depressive disorder, recurrent severe without psychotic features (2) Alcohol use disorder, moderate, in early remission: Status: Acute Code(s): F10.21 - Alcohol dependence, in remission Plan 51 yo female, history of recurrent severe major depression, currently in her sixth month of acute symptoms without relief. Episode began Sep 2021, pt was using alcohol to sleep-attended [facility] [place] and has had no relief since with medication changes. By history ECT has been effective and she returns for consideration for this treatment. Plan: Medical Clearance, labs, EKG for ECT are completed. First treatment 02/21/22. Continue current regime. 02/21/22 ECT #1 completed. Continue current plan of care 02/22/22 No medication changes 02/23/22 no medication changes, ECT tomorrow 02/24/22- Continue current plan of care 02/26/22- Continue current plan of care. 02/27/22- Continue current plan of care. 02/28/22-Continue current plan of care. 03/03 - ECT #5 completed. 03/04- Continue current plan of care. 03/05- ECT #6 completed 03/06- continue current medications. 03/07- continue current medications, plan to have last ECT on Thursday, 03/10 and d/c on 03/11/22. I spent minutes with the patient and/or on the patient floor today, greater than?50% of which was spent counseling/coordinating care. Reason for contiued inpatient stay Substantial Risk for: inability to function
[2022-03-07 09:36] VITALS: BP 118/60; PULSE 74; RESP 20; O2SAT 94
--- NOTE | 2022-03-07 12:19 | PC.NURSE ---
Late entry: Contacted providers in AM to clarify ECT schedule- none today. Patient resumed on regular diet, informed of current schedule.
[2022-03-07] MEDS: Thiamine HCL 100 MG TABLET PO (13:54)
[2022-03-07 20:17] VITALS: BP 109/63; PULSE 86; RESP 18; TEMP 36.7; O2SAT 98
[2022-03-07] MEDS: traZODone HCL 50 MG TABLET PO (21:10)
[2022-03-07] MEDS: QUEtiapine Fumarate 100 MG TABLET PO (21:10)
[2022-03-08 06:00] VITALS: BP 84/54; PULSE 75; RESP 17; TEMP 36.6; O2SAT 98
[2022-03-08] MEDS: Docusate Sodium 100 MG CAPSULE PO ×2 (08:50→21:22)
[2022-03-08] MEDS: buPROPion HCl XL 300 MG TAB.ER.24H PO (08:51)
[2022-03-08] MEDS: Thiamine HCL 100 MG TABLET PO (08:51)
[2022-03-08] MEDS: Sertraline HCL 100 MG TABLET PO (08:51)
--- NOTE | 2022-03-08 12:07 | P.PNPSI_ITS ---
Subjective Subjective Date of Service: 03/08/22 Reason For Visit: recurrent major depression Subjective Notes: Conditional Voluntary Interim History: Patient seen and discussed with staff Pt with bright affect and visible in the unit, able to attend groups. She de scribes mood as okay. She reports she slept well. She is eating better. She denies SI/HI. Pt feeling more optimistic. Medication Compliance: Yes Side effects from medications: No Attending Groups: Yes Review of Systems Acute medical concerns: No Medical Review of Systems: unchanged Review of Systems Review of Systems no changes Yes all other systems are reviewed and are negative Musculoskeletal: Reports other (R Foot pain, s/p injury 2019) Psychiatric: Reports abnormal sleep pattern, Reports anxiety, Reports dep ression, Reports difficulty concentrating, Reports hopelessness, Reports irritability, Reports anhedonia, Reports mood swings and Reports suicidal ideation (denies) Mental Status Exam Mental Status Exam Narrative: Appearance: casually groomed, good hygiene, somewhat anxious Behavior: cooperative, confused as to who she should be seeing for provider Psychomotor: no agitation or retardation noted, fidgety Speech: clear, delayed in response, soft, spontaneous Tc: feeling more hope, no signs of psychosis, some poverty of thought Tp: mostly linear SI: none HI: none VH/AH: none Delusions: none Insight/judgment: fair x 2. Memory/cog: alert, oriented x 3. Patient Appearance: Disheveled Patient Orientation: Person, Place, Time and Situation Level of Consciousness: Alert Patient Behavior: Talkative and Good Eye Contact Mood Description: Depressed and Anxious Affect Description: Calm (more reactive) Patient Cognition Impaired: No Ability to Follow Directions: Good Speech Pattern: Spontaneous Speech Memory Description: Episodic Impaired Diagnostics Vital Signs (24Hr): Vital Signs - 24 hr 03/07/22 20:17 03/08/22 06:00 Temperature 98.1 F 97.8 F Pulse Rate 86 75 Respiratory Rate 18 17 Blood Pressure 109/63 84/54 L Pulse Oximetry 98 98 BMI result Body Mass Index 33.1 Labs Results: 02/20/22 13:34 02/18/22 18:23 Imaging Radiology Impressions: ITS Impressions Chest X-Ray 02/18/22 22:10 IMPRESSION: Unremarkable examination. Medications Medications Current Medications Acetaminophen (Acetaminophen 325 Mg Tablet) 650 mg PO Q6H PRN PRN Reason: Headache/Pain Mild Scale (1-3) Acetaminophen (Acetaminophen 325 Mg Tablet) 650 mg PO ONCE PRN PRN Reason: Pain, Mild (Pain Scale 1-3) Al Hydroxide/Mg Hydroxide (Magnesium Hydrox/Alum Hydrox 30 Ml Oral.Susp) 30 ml PO Q6H PRN PRN Reason: Heartburn/Nausea Bupropion HCl (Bupropion Hcl Xl 300 Mg Tab.Er.24h) 300 mg PO DAILY [facility] Last Admin: 03/08/22 08:51 Dose: 300 mg Documented by: Docusate Sodium (Docusate Sodium 100 Mg Capsule) 100 mg PO BID [facility] Last Admin: 03/08/22 08:50 Dose: 100 mg Documented by: Hydroxyzine HCl (Hydroxyzine Hcl 25 Mg Tablet) 25 mg PO BEDTIME PRN PRN Reason: Anxiety Last Admin: 02/24/22 22:07 Dose: 25 mg Documented by: Magnesium Hydroxide (Milk Of Magnesia 30 Ml Oral.Susp) 30 ml PO DAILY PRN PRN Reason: Constipation Last Admin: 02/25/22 16:27 Dose: 30 ml Documented by: Nicotine Polacrilex (Nicotine Polacrilex 2 Mg Gum) 2 mg BUCCAL Q2H PRN PRN Reason: Nicotine Cravings Last Admin: 02/22/22 15:30 Dose: 2 mg Documented by: Ondansetron HCl (Ondansetron Hcl 4 Mg/2 Ml Vial) 4 mg IVPUSH ONCE PRN PRN Reason: Nausea and Vomiting Quetiapine Fumarate (Quetiapine Fumarate 100 Mg Tablet) 100 mg PO BEDTIME PRN PRN Reason: insomnia Last Admin: 03/07/22 21:10 Dose: 100 mg Documented by: Quetiapine Fumarate (Quetiapine Fumarate 25 Mg Tablet) 25 mg PO MoWeFr@[id number] [facility] Last Admin: 03/07/22 05:34 Dose: 25 mg Documented by: Sertraline HCl (Sertraline Hcl 100 Mg Tablet) 100 mg PO DAILY [facility] Last Admin: 03/08/22 08:51 Dose: 100 mg Documented by: Thiamine HCl (Thiamine Hcl 100 Mg Tablet) 100 mg PO DAILY [facility] Last Admin: 03/08/22 08:51 Dose: 100 mg Documented by: Trazodone HCl (Trazodone Hcl 50 Mg Tablet) 50 mg PO BEDTIME PRN PRN Reason: Insomnia Last Admin: 03/07/22 21:10 Dose: 50 mg Documented by: Allergies Allergies Allergy/AdvReac Type Severity Reaction Status Date / Time No Known Allergies Allergy Mild NOT Verified 03/05/22 06:35 APPLICABLE Assessment & Plan Assessment & Plan (1) MDD (major depressive disorder), recurrent severe, without psychosis: Status: Acute Code(s): F33.2 - Major depressive disorder, recurrent severe without psychotic features (2) Alcohol use disorder, moderate, in early remission: Status: Acute Code(s): F10.21 - Alcohol dependence, in remission Plan 51 yo female, history of recurrent severe major depression, currently in her sixth month of acute symptoms without relief. Episode began Sep 2021, pt was using alcohol to sleep-attended [facility] [place] and has had no relief since with medication changes. By history ECT has been effective and she returns for consideration for this treatment. Plan: Medical Clearance, labs, EKG for ECT are completed. First treatment 02/21/22. Continue current regime. 02/21/22 ECT #1 completed. Continue current plan of care 02/22/22 No medication changes 02/23/22 no medication changes, ECT tomorrow 02/24/22- Continue current plan of care 02/26/22- Continue current plan of care. 02/27/22- Continue current plan of care. 02/28/22-Continue current plan of care. 03/03 - ECT #5 completed. 03/04- Continue current plan of care. 03/05- ECT #6 completed 03/06- continue current medications. 03/07- continue current medications, plan to have last ECT on Thursday, 03/10 and d/c on 03/11/22. 03/08 continue current treatment plan- last ECT on Thursday, 03/10 and d/c on 03/11/22. I spent ___15___ minutes with the patient and/or on the patient floor today, greater than?50% of which was spent counseling/coordinating care. Patient educated on: diagnosis, medication risk/benefits and therapeutic strategies Informed Consent: understands and further education needed Reason for contiued inpatient stay Substantial Risk for: harm to self, inability to function and med/psych decompe nsation
[2022-03-08 20:54] VITALS: BP 118/60; PULSE 90; RESP 18; TEMP 36.6; O2SAT 97
[2022-03-08] MEDS: QUEtiapine Fumarate 100 MG TABLET PO (21:22)
[2022-03-08] MEDS: traZODone HCL 50 MG TABLET PO (21:22)
[2022-03-09] MEDS: Thiamine HCL 100 MG TABLET PO (08:36)
[2022-03-09] MEDS: Docusate Sodium 100 MG CAPSULE PO ×2 (08:36→20:43)
[2022-03-09] MEDS: buPROPion HCl XL 300 MG TAB.ER.24H PO (08:36)
[2022-03-09] MEDS: Sertraline HCL 100 MG TABLET PO (08:37)
[2022-03-09 08:44] VITALS: BP 102/72; PULSE 78; RESP 14; TEMP 36.6; O2SAT 98
--- NOTE | 2022-03-09 16:02 | P.PNPSI_ITS ---
Subjective Subjective Date of Service: 03/09/22 Reason For Visit: recurrent major depression Subjective Notes: Conditional Voluntary Interim History: Patient seen and discussed with staff Pt with bright affect and visible in the unit, attending groups. She reports mood as okay. She reports she slept well. She is eating better. She denies SI/HI. Pt feeling more optimistic. Medication Compliance: Yes Side effects from medications: No Attending Groups: Yes Review of Systems Review of Systems no changes Yes all other systems are reviewed and are negative Musculoskeletal: Reports other (R Foot pain, s/p injury 2019) Psychiatric: Reports abnormal sleep pattern, Reports anxiety, Reports depression, Reports difficulty concentrating, Reports hopelessness, Reports irritability, Reports anhedonia, Reports mood swings and Reports suicidal ideation (denies) Mental Status Exam Mental Status Exam Narrative: Appearance: casually groomed, good hygiene, somewhat anxious Behavior: cooperative, confused as to who she should be seeing for provider Psychomotor: no agitation or retardation noted, fidgety Speech: clear, delayed in response, soft, spontaneous Tc: feeling more hope, no signs of psychosis, some poverty of thought Tp: mostly linear SI: none HI: none VH/AH: none Delusions: none Insight/judgment: fair x 2. Memory/cog: alert, oriented x 3. Patient Appearance: Disheveled Patient Orientation: Person, Place, Time and Situation Level of Consciousness: Alert Patient Behavior: Talkative and Good Eye Contact Mood Description: Depressed and Anxious Affect Description: Calm (more reactive) Patient Cognition Impaired: No Ability to Follow Directions: Good Speech Pattern: Spontaneous Speech Memory Description: Episodic Impaired Diagnostics Vital Signs (24Hr): Vital Signs - 24 hr 03/08/22 20:54 03/09/22 08:44 Temperature 97.8 F 97.9 F Pulse Rate 90 78 Respiratory Rate 18 14 Blood Pressure 118/60 102/72 Pulse Oximetry 97 98 BMI result Body Mass Index 33.1 Labs Results: 02/20/22 13:34 02/18/22 18:23 Imaging Radiology Impressions: ITS Impressions Chest X-Ray 02/18/22 22:10 IMPRESSION: Unremarkable examination. Medications Medications Current Medications Acetaminophen (Acetaminophen 325 Mg Tablet) 650 mg PO Q6H PRN PRN Reason: Headache/Pain Mild Scale (1-3) Acetaminophen (Acetaminophen 325 Mg Tablet) 650 mg PO ONCE PRN PRN Reason: Pain, Mild (Pain Scale 1-3) Al Hydroxide/Mg Hydroxide (Magnesium Hydrox/Alum Hydrox 30 Ml Oral.Susp) 30 ml PO Q6H PRN PRN Reason: Heartburn/Nausea Bupropion HCl (Bupropion Hcl Xl 300 Mg Tab.Er.24h) 300 mg PO DAILY [facility] Last Admin: 03/09/22 08:36 Dose: 300 mg Documented by: Docusate Sodium (Docusate Sodium 100 Mg Capsule) 100 mg PO BID [facility] Last Admin: 03/09/22 08:36 Dose: 100 mg Documented by: Hydroxyzine HCl (Hydroxyzine Hcl 25 Mg Tablet) 25 mg PO BEDTIME PRN PRN Reason: Anxiety Last Admin: 02/24/22 22:07 Dose: 25 mg Documented by: Magnesium Hydroxide (Milk Of Magnesia 30 Ml Oral.Susp) 30 ml PO DAILY PRN PRN Reason: Constipation Last Admin: 02/25/22 16:27 Dose: 30 ml Documented by: Nicotine Polacrilex (Nicotine Polacrilex 2 Mg Gum) 2 mg BUCCAL Q2H PRN PRN Reason: Nicotine Cravings Last Admin: 02/22/22 15:30 Dose: 2 mg Documented by: Ondansetron HCl (Ondansetron Hcl 4 Mg/2 Ml Vial) 4 mg IVPUSH ONCE PRN PRN Reason: Nausea and Vomiting Quetiapine Fumarate (Quetiapine Fumarate 100 Mg Tablet) 100 mg PO BEDTIME PRN PRN Reason: insomnia Last Admin: 03/08/22 21:22 Dose: 100 mg Documented by: Quetiapine Fumarate (Quetiapine Fumarate 25 Mg Tablet) 25 mg PO MoWeFr@0530 [facility] Last Admin: 03/07/22 05:34 Dose: 25 mg Documented by: Sertraline HCl (Sertraline Hcl 100 Mg Tablet) 100 mg PO DAILY [facility] Last Admin: 03/09/22 08:37 Dose: 100 mg Documented by: Thiamine HCl (Thiamine Hcl 100 Mg Tablet) 100 mg PO DAILY [facility] Last Admin: 03/09/22 08:36 Dose: 100 mg Documented by: Trazodone HCl (Trazodone Hcl 50 Mg Tablet) 50 mg PO BEDTIME PRN PRN Reason: Insomnia Last Admin: 03/08/22 21:22 Dose: 50 mg Documented by: Allergies Allergies Allergy/AdvReac Type Severity Reaction Status Date / Time No Known Allergies Allergy Mild NOT Verified 03/05/22 06:35 APPLICABLE Assessment & Plan Assessment & Plan (1) MDD (major depressive disorder), recurrent severe, without psychosis: Status: Acute Code(s): F33.2 - Major depressive disorder, recurrent severe without psychotic features (2) Alcohol use disorder, moderate, in early remission: Status: Acute Code(s): F10.21 - Alcohol dependence, in remission Plan 51 yo female, history of recurrent severe major depression, currently in her sixth month of acute symptoms without relief. Episode began Sep 2021, pt was using alcohol to sleep-attended [facility] [place] and has had no relief since with medication changes. By history ECT has been effective and she returns for consideration for this treatment. Plan: Medical Clearance, labs, EKG for ECT are completed. First treatment 02/21/22. Continue current regime. 02/21/22 ECT #1 completed. Continue current plan of care 02/22/22 No medication changes 02/23/22 no medication changes, ECT tomorrow 02/24/22- Continue current plan of care 02/26/22- Continue current plan of care. 02/27/22- Continue current plan of care. 02/28/22-Continue current plan of care. 03/03 - ECT #5 completed. 03/04- Continue current plan of care. 03/05- ECT #6 completed 03/06- continue current medications. 03/07- continue current medications, plan to have last ECT on Thursday, 03/10 and d/c on 03/11/22. 03/08 continue current treatment plan- last ECT on Thursday, 03/10 and d/c on 03/11/22. 03/09 continue current treatment plan- last ECT on Thursday, 03/10 and d/c on 03/11/22. I spent minutes with the patient and/or on the patient floor today, greater than?50% of which was spent counseling/coordinating care. Reason for contiued inpatient stay Substantial Risk for: harm to self, inability to function and rapid decompensation
[2022-03-09 18:00] VITALS: BP 124/72; PULSE 80; RESP 16; TEMP 36.4; O2SAT 98
[2022-03-09] MEDS: traZODone HCL 50 MG TABLET PO (20:43)
[2022-03-09] MEDS: QUEtiapine Fumarate 100 MG TABLET PO (20:43)
[2022-03-10] VITALS (12 sets, daily range): BP systolic 100–134; BP diastolic 57–74; PULSE 72–89; RESP 14–18; TEMP 36.4–36.7; O2SAT 92–99
[2022-03-10] MEDS: QUEtiapine Fumarate 25 MG TABLET PO (05:35)
--- NOTE | 2022-03-10 10:04 | MHC.SHP ---
Pre-Procedural Eval Section A Date of Service: 03/10/22 The patient is an INPATIENT: Yes Changes since office visit: Yes Changes in Medication and Yes Patient answered all questions; No Cold of Flu in the past 2 weeks and No New Medical Problems The History & Physical has been completed within 30 days and I have reviewed it.: Yes Section B Chief Complaint: recurrent major depression Allergies: Allergies Allergy/AdvReac Type Severity Reaction Status Date / Time No Known Allergies Allergy Mild NOT Verified 03/05/22 06:35 APPLICABLE Plan I have reviewed the history and physical and performed a pertinent physical examination on my patient. No changes have occurred unless specified.
--- NOTE | 2022-03-10 10:58 | HO.ECTPROC ---
ECT Procedure Note Diagnosis/Treatment Date of Service: 03/10/22 Previous ECT Date: 03/05/22 Current Treatment Number: 7 Treatment: Series Interval Clinical Notes: feeling better tentative d/c tomm ECT Settings Device: THYMATRON DGx Electrode Placement: Right Unilateral Program/Pulse Width: 0.25 Energy Percent: 100 Seizure Duration By EEG (in seconds): 46 Medications Administration General Anesthetic: Etomidate Muscle Relaxant: Succinylcholine Ancillary Medications Miscillaneous Medications: Propofol Airway Management Airway Management: Bag Mask Ventilation Treatment Recommendations Electrode Placement: Right Unilateral Program/Pulse Width: 0.25 Energy Percent: 100 Pt Tolerated Procedure w/o Issue: Yes
--- NOTE | 2022-03-10 11:57 | P.CONAN_ITS ---
[facility] Active Problems Active Problems: All Active Problems (Updated 02/20/22 @ 16:22 by Mojgan Mena MD) Pre-op evaluation (Acute) Leukocytosis (Acute) Alcohol use disorder, moderate, in early remission (Acute) MDD (major depressive disorder), recurrent severe, without psychosis (Acute) HUMBERTO (generalized anxiety disorder) (Acute) Past Medical History Medical History Basal cell carcinoma H/O hidradenitis suppurativa History of fracture of left ankle Family History Family history of problems with anesthesia: No Surgical History History of Problems with Anesthesia: No Social History Social History Household Members: None Household Members Other:: N/A Housing: Condominium Do you presently have visiting nurse or other home services: No Unable to assess alcohol history related to: Unable to respond Patient Tobacco Use Status: Current everyday Tobacco user Tobacco use type: Cigarette Cigarette Packs Per Day: 0.25 Cigarettes Per Day: 5.0 Smoked in Last 30 Days: Yes e-Cigarette/Vaping Use: Currently Using Patient Interested in Nicotine Replacement: Yes Patient Given Instructions on How to Stop Smoking: No Use of substances other than those prescribed or required for medical reasons: Yes Substance Use Type: Marijuana and Caffiene Substance Use Frequency: Occasionally Last Used Substance Other:: July 2021 Currently Displaying Signs/Symptoms of Drug Intoxication Withdrawal: No Any prior treatment program specific to substance use: Yes (ETOH) Have you been hit, kicked, punched, or otherwise hurt by someone within the past year? If so, by whom?: No Do you feel safe in your current relationship?: No Is there a partner from a previous relationship who is making you feel unsafe now?: No Are you made to feel afraid or neglected: No Are you DNR?: No Advance Directives: No Advance Directives Information Provided: No Guardian: No Do you have thoughts of harming others: None Do you have a plan to hurt others: No Plan Recently lost weight without trying: No Nutrition Risks: No Nutritional Risk Patient : No : No Poor oral hygiene: No service: No Sexual orientation: Straight/Heterosexual Meds Allergies Allergy/AdvReac Type Severity Reaction Status Date / Time No Known Allergies Allergy Mild NOT Verified 03/05/22 06:35 APPLICABLE Active Medications: Current Medications Acetaminophen (Acetaminophen 325 Mg Tablet) 650 mg PO Q6H PRN PRN Reason: Headache/Pain Mild Scale (1-3) Acetaminophen (Acetaminophen 325 Mg Tablet) 650 mg PO ONCE PRN PRN Reason: Pain, Mild (Pain Scale 1-3) Al Hydroxide/Mg Hydroxide (Magnesium Hydrox/Alum Hydrox 30 Ml Oral.Susp) 30 ml PO Q6H PRN PRN Reason: Heartburn/Nausea Bupropion HCl (Bupropion Hcl Xl 300 Mg Tab.Er.24h) 300 mg PO DAILY [facility] Last Admin: 03/09/22 08:36 Dose: 300 mg Documented by: Docusate Sodium (Docusate Sodium 100 Mg Capsule) 100 mg PO BID [facility] Last Admin: 03/09/22 20:43 Dose: 100 mg Documented by: Hydroxyzine HCl (Hydroxyzine Hcl 25 Mg Tablet) 25 mg PO BEDTIME PRN PRN Reason: Anxiety Last Admin: 02/24/22 22:07 Dose: 25 mg Documented by: Magnesium Hydroxide (Milk Of Magnesia 30 Ml Oral.Susp) 30 ml PO DAILY PRN PRN Reason: Constipation Last Admin: 02/25/22 16:27 Dose: 30 ml Documented by: Nicotine Polacrilex (Nicotine Polacrilex 2 Mg Gum) 2 mg BUCCAL Q2H PRN PRN Reason: Nicotine Cravings Last Admin: 02/22/22 15:30 Dose: 2 mg Documented by: Ondansetron HCl (Ondansetron Hcl 4 Mg/2 Ml Vial) 4 mg IVPUSH ONCE PRN PRN Reason: Nausea and Vomiting Quetiapine Fumarate (Quetiapine Fumarate 100 Mg Tablet) 100 mg PO BEDTIME PRN PRN Reason: insomnia Last Admin: 03/09/22 20:43 Dose: 100 mg Documented by: Quetiapine Fumarate (Quetiapine Fumarate 25 Mg Tablet) 25 mg PO MoWeFr@[id number] [facility] Last Admin: 03/10/22 05:35 Dose: 25 mg Documented by: Sertraline HCl (Sertraline Hcl 100 Mg Tablet) 100 mg PO DAILY [facility] Last Admin: 03/09/22 08:37 Dose: 100 mg Documented by: Thiamine HCl (Thiamine Hcl 100 Mg Tablet) 100 mg PO DAILY [facility] Last Admin: 03/09/22 08:36 Dose: 100 mg Documented by: Trazodone HCl (Trazodone Hcl 50 Mg Tablet) 50 mg PO BEDTIME PRN PRN Reason: Insomnia Last Admin: 03/09/22 20:43 Dose: 50 mg Documented by: Home Medications Medication Instructions Recorded Confirmed Last Taken Type bupropion HCl 150 mg 24 hr tablet, 300 mg PO QAM 02/18/22 02/18/22 Unknown History extended release quetiapine 100 mg tablet 1 - 3 tab PO BEDTIME PRN 02/18/22 02/18/22 Unknown History sertraline 100 mg tablet 100 mg PO QAM 02/18/22 02/18/22 Unknown History Exam Exam Date and Time: March 10, 2022 1157 Height,Weight and Vital Signs: Height 5 ft 5 in Weight 90.45 kg Last Vital Signs Temp 98.0 F 03/10/22 11: Pulse 89 03/10/22 11:52 Resp 16 03/10/22 11:52 BP 112/62 03/10/22 11:52 Pulse Ox 93 03/10/22 11:52 Pertinent Lab Results Pertinent Lab Results: Laboratory Tests 02/18/22 02/18/22 02/18/22 18:23 18:23 18:23 WBC 19.1 H RBC 4.54 Hgb 13.3 Hct 43.8 MCV 96.5 MCH 29.3 MCHC 30.4 L RDW 12.8 Plt Count 385 MPV 9.5 Immature Gran % (Auto) 0.8 H Neut % (Auto) 71.9 Lymph % (Auto) 18.2 L [place] % (Auto) 6.2 Eos % (Auto) 2.4 Baso % (Auto) 0.5 Lymph # (Auto) 3.5 [place] # (Auto) 1.2 Eos # (Auto) 0.5 H Baso # (Auto) 0.1 Abs Immat Gran (auto) 0.16 H Absolute Neuts (auto) 13.8 H Absolute Nucleated RBC 0.000 Nucleated RBC % (auto) 0.0 Sodium 137 Potassium 4.4 Chloride 104 Carbon Dioxide 20 L Anion Gap 17 BUN 10 Creatinine 0.85 Estim Creat Clear Calc 87.0 Estimated GFR > 60 Random Glucose 102 Estimat Average Glucose Hemoglobin A1c % Lactic Acid Calcium 10.2 Magnesium 2.2 Total Bilirubin 0.4 AST 24 ALT 34 H Alkaline Phosphatase 82 Total Protein 7.4 Albumin 4.3 Triglycerides Cholesterol LDL Cholesterol, Calc HDL Cholesterol Vitamin B12 Folate TSH Free T4 Urine Color Urine Appearance Urine pH Ur Specific [place] Urine Protein Urine Glucose (UA) Urine Ketones Urine Blood Urine Nitrite Ur Leukocyte Esterase Urine RBC Urine WBC Ur Squamous Epith Cells Urine Bacteria Urine Opiates Screen Urine Fentanyl Screen Ur Barbiturates Screen Ur Phencyclidine Scrn Ur Amphetamines Screen U Benzodiazepines Scrn Urine Cocaine Screen U Marijuana (THC) Screen Ethyl Alcohol < 10 COVID-19 ([facility]) COVID-19 Clin Com 02/18/22 02/18/22 02/18/22 18:56 20:04 20:04 WBC RBC Hgb Hct MCV MCH MCHC RDW Plt Count MPV Immature Gran % (Auto) Neut % (Auto) Lymph % (Auto) [place] % (Auto) Eos % (Auto) Baso % (Auto) Lymph # (Auto) [place] # (Auto) Eos # (Auto) Baso # (Auto) Abs Immat Gran (auto) Absolute Neuts (auto) Absolute Nucleated RBC Nucleated RBC % (auto) Sodium Potassium Chloride Carbon Dioxide Anion Gap BUN Creatinine Estim Creat Clear Calc Estimated GFR Random Glucose Estimat Average Glucose Hemoglobin A1c % Lactic Acid Calcium Magnesium Total Bilirubin AST ALT Alkaline Phosphatase Total Protein Albumin Triglycerides Cholesterol LDL Cholesterol, Calc HDL Cholesterol Vitamin B12 Folate TSH Free T4 Urine Color YELLOW Urine Appearance CLEAR Urine pH 5.5 Ur Specific [place] 1.020 Urine Protein NEG Urine Glucose (UA) NEG Urine Ketones NEG Urine Blood 2+ H Urine Nitrite NEG Ur Leukocyte Esterase NEG Urine RBC 10-14 H Urine WBC 0 Ur Squamous Epith Cells 2+ Urine Bacteria 3+ Urine Opiates Screen Not Detected Urine Fentanyl Screen Not Detected Ur Barbiturates Screen Not Detected Ur Phencyclidine Scrn Not Detected Ur Amphetamines Screen Not Detected U Benzodiazepines Scrn Not Detected Urine Cocaine Screen Not Detected U Marijuana (THC) Screen Not Detected Ethyl Alcohol COVID-19 ([facility]) Negative COVID-19 Clin Com See Note 02/19/22 02/20/22 02/20/22 01:48 08:01 08:01 WBC RBC Hgb Hct MCV MCH MCHC RDW Plt Count MPV Immature Gran % (Auto) Neut % (Auto) Lymph % (Auto) [place] % (Auto) Eos % (Auto) Baso % (Auto) Lymph # (Auto) [place] # (Auto) Eos # (Auto) Baso # (Auto) Abs Immat Gran (auto) Absolute Neuts (auto) Absolute Nucleated RBC Nucleated RBC % (auto) Sodium Potassium Chloride Carbon Dioxide Anion Gap BUN Creatinine Estim Creat Clear Calc Estimated GFR Random Glucose Estimat Average Glucose 105 Hemoglobin A1c % 5.3 Lactic Acid 0.9 Calcium Magnesium 2.3 Total Bilirubin AST ALT Alkaline Phosphatase Total Protein Albumin Triglycerides 151 Cholesterol 242 LDL Cholesterol, Calc 159 HDL Cholesterol 53 Vitamin B12 Folate TSH 2.34 Free T4 0.90 Urine Color Urine Appearance Urine pH Ur Specific [place] Urine Protein Urine Glucose (UA) Urine Ketones Urine Blood Urine Nitrite Ur Leukocyte Esterase Urine RBC Urine WBC Ur Squamous Epith Cells Urine Bacteria Urine Opiates Screen Urine Fentanyl Screen Ur Barbiturates Screen Ur Phencyclidine Scrn Ur Amphetamines Screen U Benzodiazepines Scrn Urine Cocaine Screen U Marijuana (THC) Screen Ethyl Alcohol COVID-19 ([facility]) COVID-19 Clin Com 02/20/22 02/20/22 02/28/22 08:01 13:34 07:00 WBC 15.9 H RBC 4.51 Hgb 13.0 Hct 40.3 MCV 89.4 D MCH 28.8 MCHC 32.3 RDW 12.6 Plt Count 375 MPV 8.8 L Immature Gran % (Auto) 0.6 H Neut % (Auto) 72.0 Lymph % (Auto) 17.2 L [place] % (Auto) 6.1 Eos % (Auto) 3.5 Baso % (Auto) 0.6 Lymph # (Auto) 2.7 [place] # (Auto) 1.0 Eos # (Auto) 0.6 H Baso # (Auto) 0.1 Abs Immat Gran (auto) 0.10 H Absolute Neuts (auto) 11.5 H Absolute Nucleated RBC 0.000 Nucleated RBC % (auto) 0.0 Sodium Potassium Chloride Carbon Dioxide Anion Gap BUN Creatinine Estim Creat Clear Calc Estimated GFR Random Glucose Estimat Average Glucose Hemoglobin A1c % Lactic Acid Calcium Magnesium Total Bilirubin AST ALT Alkaline Phosphatase Total Protein Albumin Triglycerides Cholesterol LDL Cholesterol, Calc HDL Cholesterol Vitamin B12 415 Folate 14.2 TSH Free T4 Urine Color Urine Appearance Urine pH Ur Specific [place] Urine Protein Urine Glucose (UA) Urine Ketones Urine Blood Urine Nitrite Ur Leukocyte Esterase Urine RBC Urine WBC Ur Squamous Epith Cells Urine Bacteria Urine Opiates Screen Urine Fentanyl Screen Ur Barbiturates Screen Ur Phencyclidine Scrn Ur Amphetamines Screen U Benzodiazepines Scrn Urine Cocaine Screen U Marijuana (THC) Screen Ethyl Alcohol COVID-19 ([facility]ILIANA) Negative COVID-19 Clin Com See Note Airway Mallampati Class: III TM Dist: >3cm Neck ROM: Full Assessment and Plan Assessment Anesthesia Assessment: Anesthesia Plan Discussed and Chart Reviewed Final Anesthetic Review Family History of Problems with Anesthesia: No History of Problems with Anesthesia: No NPO: Yes ASA Class: III Final Preanesthetic Review: No Changes in Pt Med Stat, Meds/Allgs Chart Reviewed, Consent Obtained/Reviewed and Anes Risks/Benef Reviewed Patient Risk: Intermediate Procedure Risk: Intermediate Anesthetic Plan Anesthetic Plan: GA Disposition: Standard PACU
--- NOTE | 2022-03-10 13:00 | PC.NURSE ---
Late entry: 1220: Patienet returned from PACU- patient alert, denies headache, denies pain, denies dizziness. Alert, oriented x3, no confusion noted. Gait steady, patient observed ambulating in room.
[2022-03-10] MEDS: Sertraline HCL 100 MG TABLET PO (13:06)
[2022-03-10] MEDS: buPROPion HCl XL 300 MG TAB.ER.24H PO (13:07)
[2022-03-10] MEDS: Docusate Sodium 100 MG CAPSULE PO ×2 (13:07→20:56)
[2022-03-10] MEDS: Thiamine HCL 100 MG TABLET PO (13:07)
--- NOTE | 2022-03-10 16:35 | HO.PSYCHPN ---
Subjective Subjective Date of Service: 03/10/22 Reason For Visit: recurrent major depression Subjective Notes: Conditional Voluntary Interim History: Pt had ECT#7 today. She has been visible in the unit, attended assigned groups, seen smiling and socializing with peers. Pt reports she feels her mood is brighter. She reports feeling less depressed. She denied SI/HI. She reports sleeping well. No behavioral concerns. plan for d/c tomorrow and continue OP ECT. Medication Compliance: Yes Review of Systems Review of Systems no changes Yes all other systems are reviewed and are negative Musculoskeletal: Reports other (R Foot pain, s/p injury 2019) Psychiatric: Reports abnormal sleep pattern, Reports anxiety, Reports depression, Reports difficulty concentrating, Reports hopelessness, Reports irritability, Reports anhedonia, Reports mood swings and Reports suicidal ideation (denies) Mental Status Exam Mental Status Exam Narrative: Appearance: casually groomed, good hygiene, somewhat anxious Behavior: cooperative, confused as to who she should be seeing for provider Psychomotor: no agitation or retardation noted, fidgety Speech: clear, delayed in response, soft, spontaneous Tc: feeling more hope, no signs of psychosis, some poverty of thought Tp: mostly linear SI: none HI: none VH/AH: none Delusions: none Insight/judgment: fair x 2. Memory/cog: alert, oriented x 3. Diagnostics Vital Signs (24Hr): Vital Signs - 24 hr 03/09/22 18:00 03/10/22 05:42 03/10/22 06:00 Temperature 97.6 F 97.7 F 97.7 F Pulse Rate 80 72 78 Respiratory Rate 16 18 16 Blood Pressure 124/72 134/68 134/68 Pulse Oximetry 98 99 98 03/10/22 08:28 03/10/22 09:23 03/10/22 11:22 Temperature 97.6 F 97.5 F 98.0 F Pulse Rate 77 88 83 Respiratory Rate 18 17 16 Blood Pressure 100/57 L 115/67 112/74 Pulse Oximetry 96 97 93 03/10/22 11:27 03/10/22 11:32 03/10/22 11:37 Temperature Pulse Rate 82 84 86 Respiratory Rate 14 16 16 Blood Pressure 106/72 102/69 110/66 Pulse Oximetry 92 93 93 03/10/22 11:52 03/10/22 12:07 03/10/22 12:20 Temperature 97.8 F 97.6 F Pulse Rate 89 83 82 Respiratory Rate 16 17 18 Blood Pressure 112/62 104/58 L 100/57 L Pulse Oximetry 93 96 95 BMI result Body Mass Index 33.1 Labs Results: 02/20/22 13:34 02/18/22 18:23 Imaging Radiology Impressions: ITS Impressions Chest X-Ray 02/18/22 22:10 IMPRESSION: Unremarkable examination. Medications Medications Current Medications Acetaminophen (Acetaminophen 325 Mg Tablet) 650 mg PO Q6H PRN PRN Reason: Headache/Pain Mild Scale (1-3) Acetaminophen (Acetaminophen 325 Mg Tablet) 650 mg PO ONCE PRN PRN Reason: Pain, Mild (Pain Scale 1-3) Al Hydroxide/Mg Hydroxide (Magnesium Hydrox/Alum Hydrox 30 Ml Oral.Susp) 30 ml PO Q6H PRN PRN Reason: Heartburn/Nausea Bupropion HCl (Bupropion Hcl Xl 300 Mg Tab.Er.24h) 300 mg PO DAILY [facility] Last Admin: 03/10/22 13:07 Dose: 300 mg Documented by: Docusate Sodium (Docusate Sodium 100 Mg Capsule) 100 mg PO BID [facility] Last Admin: 03/10/22 13:07 Dose: 100 mg Documented by: Hydroxyzine HCl (Hydroxyzine Hcl 25 Mg Tablet) 25 mg PO BEDTIME PRN PRN Reason: Anxiety Last Admin: 02/24/22 22:07 Dose: 25 mg Documented by: Magnesium Hydroxide (Milk Of Magnesia 30 Ml Oral.Susp) 30 ml PO DAILY PRN PRN Reason: Constipation Last Admin: 02/25/22 16:27 Dose: 30 ml Documented by: Nicotine Polacrilex (Nicotine Polacrilex 2 Mg Gum) 2 mg BUCCAL Q2H PRN PRN Reason: Nicotine Cravings Last Admin: 02/22/22 15:30 Dose: 2 mg Documented by: Ondansetron HCl (Ondansetron Hcl 4 Mg/2 Ml Vial) 4 mg IVPUSH ONCE PRN PRN Reason: Nausea and Vomiting Quetiapine Fumarate (Quetiapine Fumarate 100 Mg Tablet) 100 mg PO BEDTIME PRN PRN Reason: insomnia Last Admin: 03/09/22 20:43 Dose: 100 mg Documented by: Quetiapine Fumarate (Quetiapine Fumarate 25 Mg Tablet) 25 mg PO MoWeFr@0530 [facility] Last Admin: 03/10/22 05:35 Dose: 25 mg Documented by: Sertraline HCl (Sertraline Hcl 100 Mg Tablet) 100 mg PO DAILY [facility] Last Admin: 03/10/22 13:06 Dose: 100 mg Documented by: Thiamine HCl (Thiamine Hcl 100 Mg Tablet) 100 mg PO DAILY [facility] Last Admin: 03/10/22 13:07 Dose: 100 mg Documented by: Trazodone HCl (Trazodone Hcl 50 Mg Tablet) 50 mg PO BEDTIME PRN PRN Reason: Insomnia Last Admin: 03/09/22 20:43 Dose: 50 mg Documented by: Allergies Allergies Allergy/AdvReac Type Severity Reaction Status Date / Time No Known Allergies Allergy Mild NOT Verified 03/05/22 06:35 APPLICABLE Assessment & Plan Assessment & Plan (1) MDD (major depressive disorder), recurrent severe, without psychosis: Status: Acute Code(s): F33.2 - Major depressive disorder, recurrent severe without psychotic features (2) Alcohol use disorder, moderate, in early remission: Status: Acute Code(s): F10.21 - Alcohol dependence, in remission Plan 51 yo female, history of recurrent severe major depression, currently in her sixth month of acute symptoms without relief. Episode began Sep 2021, pt was using alcohol to sleep-attended RCA [place] and has had no relief since with medication changes. By history ECT has been effective and she returns for consideration for this treatment. Plan: Medical Clearance, labs, EKG for ECT are completed. First treatment 02/21/22. Continue current regime. 02/21/22 ECT #1 completed. Continue current plan of care 02/22/22 No medication changes 02/23/22 no medication changes, ECT tomorrow 02/24/22- Continue current plan of care 02/26/22- Continue current plan of care. 02/27/22- Continue current plan of care. 02/28/22-Continue current plan of care. 03/03 - ECT #5 completed. 03/04- Continue current plan of care. 03/05- ECT #6 completed 03/06- continue current medications. 03/07- continue current medications, plan to have last ECT on Thursday, 03/10 and d/c on 03/11/22. 03/08 continue current treatment plan- last ECT on Thursday, 03/10 and d/c on 03/11/22. 03/09 continue current treatment plan- last ECT on Thursday, 03/10 and d/c on 03/11/22. 03/10 same plan I spent minutes with the patient and/or on the patient floor today, greater than?50% of which was spent counseling/coordinating care. Reason for contiued inpatient stay Substantial Risk for: stable for discharge
[2022-03-10] MEDS: traZODone HCL 50 MG TABLET PO (20:56)
[2022-03-10] MEDS: QUEtiapine Fumarate 100 MG TABLET PO (20:56)
[2022-03-11] MEDS: Docusate Sodium 100 MG CAPSULE PO (08:39)
[2022-03-11] MEDS: Thiamine HCL 100 MG TABLET PO (08:39)
[2022-03-11] MEDS: Sertraline HCL 100 MG TABLET PO (08:39)
[2022-03-11] MEDS: buPROPion HCl XL 300 MG TAB.ER.24H PO (08:39)
--- NOTE | 2022-03-11 08:45 | P.DS_ITS ---
DS: Providers Provider Date of Service: 03/11/22 Date of admission: 02/19/22 14:44 Primary care physician: Unknown Physician DS: Diagnosis Discharge Diagnosis (1) MDD (major depressive disorder), recurrent severe, without psychosis: Status: Acute (2) Alcohol use disorder, moderate, in early remission: Status: Acute DS: Medications Discharge Medications Home Medications: Previous Rx's Medication Instructions Recorded bupropion HCl 300 mg 24 hr tablet, 300 mg PO DAILY #30 tab 03/11/22 extended release docusate sodium 100 mg capsule 100 mg PO BID #60 cap 03/11/22 quetiapine 100 mg tablet 100 mg PO BEDTIME PRN #30 tab 03/11/22 sertraline 100 mg tablet 100 mg PO DAILY #30 tab 03/11/22 thiamine mononitrate (vit B1) 100 100 mg PO DAILY #30 tab 03/11/22 mg tablet trazodone 50 mg tablet 50 mg PO BEDTIME PRN #30 tab 03/11/22 Mental Status Exam Mental Status Exam Narrative: Appearance: casually groomed, good hygiene, in NAD Behavior: cooperative, Psychomotor: no agitation or retardation noted, some milder tapping feet Speech: clear, regular response rate, soft, spontaneous Mood: okay Affect: much brighter, non labile, smiling at times. Tc: feeling more hope, no signs of psychosis, looking forward to return home Tp: mostly linear SI: none HI: none VH/AH: none Delusions: none Insight/judgment: fair x 2. Memory/cog: alert, oriented x 3. Data Data Completed and Pending Completed studies during hospitalization [Text1]: 02/19/22 01:48 Blood - Venous Blood Culture - Final No growth after 5 days. 02/19/22 01:48 Blood - Venous Blood Culture - Final No growth after 5 days. 02/20/22 13:57 Urine clean catch - Clean Catch Midstream Urine Culture - Final Imaging Diagnostic Imaging Impressions Chest X-Ray 02/18/22 22:10 IMPRESSION: Unremarkable examination. DS: Summary Hospital Course Hospital Course: 51 yo female, long history of recurrent major depression with treatment resistance-several trials, hx of TMS, hx of ECT with efficacy, presents for consideration for ECT course. Met with pt who is tearful- I have tried everything else . I don't want to be here. Pt reports current episode of illness has been problematic for ~6 months. 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 Symptoms became severe mid September when she lost functioning and began using alcohol to assist with sleep. Reports she requested partial hospital but was rejected due to her alcohol use. She was treated at [facility] in Sep 2021. Since that time she had a beer on 11/22/21 and two Guinness beers 02/13/22. Reports she has been taking Wellbutrin, Sertraline, Seroquel without SE. Reports sleep is disrupted without Seroquel and appetite is OK. Denies SI. Cries throughout eval. Medically, she injured her R foot in 2019 jumping over train tracks on a hike and although her foot was not fractured she expereinces sig nificant pain to this day. Past Psychiatric History: Past meds: Clonidine, hydroxyzine (lack of benefit), lamictal, lithium, abilify, lexapro, geodon, celexa, effexor, prozac. -Pt?s psychiatrist is Dr. Amanda Navarro. Has psychotherapy with Phylicia James (tele therapy out of [place]). -Per chart, pt?s sx of depression started in college. Hx of IPLOC 2x, first time in her 20s, last in 2013 at [facility]. She has hx of ECT during her inpatient admission and was stepped down to PHP at [facility] in 2013. Medical Evaluation Reviewed: Yes HOSPITAL COURSE Ms. Sanchez was admitted on a cv and placed on 15 minutes checks for safety. After discussing risks, benefits and alternative treatment options, pt agreed to start ECT given that she has had multiple medication trials, including ketamine. She also failed TMS. She had ECT in the past with good effect. Ms. Castillo was continued on Wellbutrin 300mg po daily and Sertraline 100mg po daily. She was started on trazodone for sleep and seroquel for mood/ anxiety/sleep. Ms. Castillo had a total of 7 ECT treatments, right unilateral. She did experience some confusion on days of ECT. She may benefit from monitoring memory/cognition. She was sleeping and eating well. Her affect gradually brighten. She was increasingly more visible on the unit and attended assigned groups. She denied suicidal or homicidal ideation. She did not show any signs of psychosis. She was increasingly more future oriented. There were no incidences of disruptive behaviors nor use of restraints. Collateral information gathered from her sister who reports improvement in mood and presentation and denied any safety concerns at times of discharge. She will have outpatient ECT on 03/14/2022. Time spent discussing smoking cessation with patient: 3 to 10 minutes Status at Discharge Cognitive/behavioral status at discharge: Pt with brighter affect, no SI/HI. Future oriented. Sleeping and eating well. No signs of aggression towards self or others. Monitor memory/cognition. Functional status at discharge: independent ambulation Overall status at discharge: patient is progressing back to baseline Time Spent with Patient Time attestation: Total time spent providing and/or coordinating discharge services: Discharge Plan Discharge Patient Disposition: Home, Self-Care Discharge Diagnosis: MDD, recurrent, moderate Referrals: AMANDA COLVIN [Other] - 03/27/22 9:40 am (IN PERSON) PYHLICIA JAMES, THERAPIST [Other] - 03/12/22 9:00 am (TELEHEALTH) ECT [Other] - 03/14/22 8:00 am (Need to be in short-stay surgery by 8am) [facility] [Physician] - 1 Week Discharge Medications: New trazodone 50 mg Tablet 50 mg PO BEDTIME PRN (Reason: Insomnia) Qty: 30 0RF sertraline 100 mg Tablet 100 mg PO DAILY Qty: 30 0RF quetiapine 100 mg Tablet 100 mg PO BEDTIME PRN (Reason: insomnia) Qty: 30 0RF docusate sodium 100 mg Capsule 100 mg PO BID Qty: 60 0RF bupropion HCl 300 mg Tablet Extended Release 24 Hr 300 mg PO DAILY Qty: 30 0RF thiamine mononitrate (vit B1) 100 mg Tablet 100 mg PO DAILY Qty: 30 0RF Discontinued sertraline 100 mg tablet 100 mg PO QAM 0RF quetiapine 100 mg tablet 1 - 3 tab PO BEDTIME PRN (Reason: insomnia) 0RF bupropion HCl 150 mg tablet extended release 24 hr 300 mg PO QAM 0RF Discharge Orders: Discharge Order (Routine); Ordered 03/11/22 Ordered By: Nathalie Lopez Diet: regular diet Activity on Discharge: As tolerated Stand Alone Forms: Patient Portal Discharge page Care Plan Goals: 1. Maintain mood 2. no SI/HI Health Concerns: Follow up with PCP Plan of Treatment: 1. Take medications as prescribed. 2. Go to nearest ED or call 911 in event of emergency Assessment: Pt is brighter, non labile. No SI/HI. Future oriented looking forward to return home, see family. She is sleeping/eating well. monitor memory/cognition.
[2022-03-11 08:51] VITALS: BP 95/87; PULSE 88; RESP 18; TEMP 36.4; O2SAT 97
--- NOTE | 2022-03-11 11:10 | PC.NURSE ---
Patient alert, oriented to person, place, mildly confused re: date (thought it was 03/17, not 03/11) easily re-oriented. Denies SI/HI, denies AH/VH. Reviewed discharge instructions w/ patient. Answered questions as asked. Verbalized understanding of discharge instructions. No concerns reported.
== END 2022-03-11 13:45 | disposition home or self-care (01) | DRG 885 ==
LOC: HO.ED 02-19 14:03 → HO.PM5 02-19 15:12 → HO.PADLT16 03-03 02:15
PROVIDERS: Clinical Nurse Specialist Psychiatric/Mental Health, Adult; Psychiatry & Neurology Psychiatry; Admitting Provider Psychiatry & Neurology Psychiatry; Emergency Provider Internal Medicine; Visit Provider Social Worker
PROC: (CPT 90870; principal; 2022-02-21 15:10)
PROC: GZB4ZZZ Other Electroconvulsive Therapy (ICD-10-PCS; CPT 90870; principal; 2022-02-24 15:30)
DX: F33.2 Major depressive disorder, recurrent severe without psychotic features (principal); R45.851 Suicidal ideations; F10.21 Alcohol dependence, in remission; Z85.828 Personal history of other malignant neoplasm of skin; D72.829 Elevated white blood cell count, unspecified; Z20.822 Contact with and (suspected) exposure to COVID-19; F17.210 Nicotine dependence, cigarettes, uncomplicated; Z71.6 Tobacco abuse counseling; Z79.899 Other long term (current) drug therapy
CPT/HCPCS: 36415; 71045; 80053; 80061; 80307; 81001; 82077; 82607; 82746; 83036; 83605; 83735; 84439; 84443; 85025; 87040; 87086; 87635; 90870; 93005; 99285; J0330; J1885; J2250; J2405